=== PATIENT | female | born 1945 | race Caucasian/White ===

== ENCOUNTER 2017-03-31 08:05 | Day surgery (SDC) | payer OTHER, MEDICAID ==
[2017-03-31 08:52] VITALS: PULSE 56
[2017-03-31] MEDS ORDERED: LR 1,000 ML IV ONE (09:18)
[2017-03-31 09:49] LABS: ANION GAP 14 mEq/L (8-16); CALCIUM 9.8 mg/dL (8.5-10.4); CARBON DIOXIDE 21 mEq/l (22-31); CHLORIDE 106 mEq/L (97-110); CREATININE 1.3 mg/dL (0.6-1.0); GLOMERULAR FILTRATION RATE 40; GLUCOSE 219 mg/dL (70-100); POTASSIUM 4.2 mEq/L (3.5-5.2); SODIUM 141 mEq/L (134-144)
--- NOTE | 2017-03-31 10:37 | PDANEPAE ---
ANE Past Medical History - Cardiovascular History Hx Hypertension: Yes Hx Arrhythmias: No Hx Chest Pain: No Hx Coronary Artery / Peripheral Vascular Disease: Yes Hx CHF / Valvular Disease: No Hx Palpitations: No - Pulmonary History Hx COPD: No Hx Asthma/Reactive Airway Disease: No Hx Recent Upper Respiratory Infection: No Hx Oxygen in Use at Home: No Hx Sleep Apnea: No Sleep Apnea Screening Result - Last Documented: Negative - Neurologic History Hx Cerebrovascular Accident: No Hx Seizures: No Hx Dementia: No - Endocrine History Hx Diabetes: Yes Endocrine History Comment: type 2 diabetes - Renal History Hx Renal Disorders: No - Liver History Hx Hepatic Disorders: No - Neurological & Psychiatric Hx Hx Neurological and Psychiatric Disorders: No - Cancer History Hx Cancer: No - Congenital Disorder History Hx Congenital Disorders: No - GI History Hx Gastrointestinal Disorders: Yes Gastrointestinal History Comment: swallowing difficulty - Other Health History Other Health History: none - Chronic Pain History Chronic Pain: No - Surgical History Prior Surgeries: five toes right foot amputated. 2nd toe left foot amputated ANE Review of Systems Review of Systems: - Exercise capacity METS (RN): 4 METS ANE Patient History - Allergies Allergies/Adverse Reactions: atorvastatin [From Lipitor] Allergy (Verified 03/23/17 15:24) desvenlafaxine Allergy (Verified 03/23/17 15:24) diphenhydramine [From Benadryl] Allergy (Verified 03/23/17 15:24) divalproex sodium [From Depakote] Allergy (Verified 03/23/17 15:24) mushroom Allergy (Verified 03/23/17 15:24) venlafaxine [From Effexor] Allergy (Verified 03/23/17 15:24) metaclopramide Allergy (Uncoded 03/23/17 15:24) products containing shellfish Allergy (Uncoded 03/23/17 15:24) - Home Medications Home Medications: Cymbalta 03/23/17 [Last Taken 03/30/17] Diclofenac Sodium 1% 03/23/17 [Last Taken 03/30/17] Fenofibrate 03/23/17 [Last Taken 03/30/17] Humalog Kwikpen U-100 03/23/17 [Last Taken 03/30/17] Lantus Solostar 03/23/17 [Last Taken 03/30/17] Levothyroxine 03/23/17 [Last Taken 03/30/17] Lisinopril 03/23/17 [Last Taken 03/30/17] Loperamide 03/23/17 [Last Taken 03/30/17] Lyrica 03/23/17 [Last Taken 03/30/17] Ondansetron 03/23/17 [Last Taken 03/30/17] Pantoprazole Sodium 03/23/17 [Last Taken 03/30/17] - NPO status NPO Since - Liquids (Date): 03/30/17 NPO Since - Liquids (Time): 00:00 NPO Since - Solids (Date): 03/30/17 NPO Since - Solids (Time): 00:00 - Smoking Hx Smoking Status: Never smoked - Family Anes Hx Family Hx Anesthesia Complications: none ANE Labs/Vital Signs - Labs Result Diagrams: 03/31/17 09:00 - Vital Signs Blood Pressure: 125/71 Heart Rate: 56 Respiratory Rate: 16 O2 Sat (%): 91 Height: 160.02 cm Weight: 79.379 kg ANE Physical Exam - Airway Mallampati Score: Class 2 - ASA Status ASA Status: III ANE Anesthesia Plan Total IV Anesthesia: Yes
[2017-03-31] MEDS ORDERED: PROPOFOL/EMULSION 500 MG/50 ML BOTTLE IV ONE (10:42)
--- NOTE | 2017-03-31 10:42 | PDGENHP ---
History & Physical Chief Complaint: Dysphagia Relevant Physical Exam: GEN: NAD. Cardiac: RRR. Lungs: CTA B. Abd: Soft, nt, nd
--- NOTE | 2017-03-31 11:03 | GIREPORT ---
[facility] Surgical Services - Endoscopy Department Patient Name: Layla Weston Procedure Date: 03/31/2017 10:37 AM Patient Type: Outpatient Attending MD/ ER Physician: Alonso Lara MD Procedure: Upper GI endoscopy Indications: Dysphagia. Hx of esophageal strictures which has been dilated up to 12m m in the recent past (Jan 30). Providers: Alonso Lara MD Medicines: Monitored Anesthesia Care Complications: No immediate complications. Description of Procedure: After obtaining informed consent, the endoscope was passed under direct vision. Throughout the procedure, the patient's blood pressure, pulse, and oxygen saturations were monitored continuously. The Endoscope was intro duced through the mouth, and advanced to the second part of duodenum. The [facility] GI endoscopy was accomplished without difficulty. The patient tolerated th e procedure well. Findings: LA Grade A (one or more mucosal breaks less than 5 mm, not extending be tween tops of 2 mucosal folds) esophagitis with no bleeding was found 36 cm f rom the incisors. One mild benign-appearing, intrinsic stenosis was found 36 cm from the incisors. This measured 1.1 cm (inner diameter) x less than one cm (in length) and was traversed. A TTS dilator was passed through the scope. Dilation with a 12-13.5-15 mm balloon dilator was performed to 13.5 mm. A small hiatal hernia was present. A large amount of food (residue) was found in the entire examined stoma ch. The examined duodenum was normal. Estimated Blood Loss: Estimated blood loss: none. Post Op Diagnosis: - Benign-appearing esophageal stenosis. Dilated. - Small hiatal hernia. - A large amount of food (residue) in the stomach. - Normal examined duodenum. - No specimens collected. Recommendation: - Discharge patient to home (with escort). - Gastroparesis diet. - Continue present medications. - Repeat EGD with dilation as needed for recurrent dysphagia. - Return to GI clinic as previously scheduled. - Thank you for allowing me to participate in the care of your patient. Attending Participation: I personally performed the entire procedure. Alonso Lara MD Alonso Lara MD 03/31/2017 11:03:21 AM This report has been signed electronicallyDabrenda Lara MD Number of Addenda: 0 Note Initiated On: 03/31/2017 10:37 AM [email or web address]
[2017-03-31] MEDS ORDERED: LR 500 ML IV PRN (11:04)
[2017-03-31] MEDS ORDERED: ONDANSETRON 4 MG/2 ML VIAL IVP PRN (11:04)
[2017-03-31] MEDS ORDERED: fentaNYL 100 MCG/2 ML INJ IVP PRN (11:04)
[2017-03-31] MEDS ORDERED: NALOXONE HCL 0.4 MG/ML INJ IVP PRN (11:04)
--- NOTE | 2017-03-31 11:05 | POSTANESTH ---
Post Anesthetic Evaluation Cardiovascular Status: Similar to Pre-Op Cond Respiratory Status: Normal, Stable Level of Consciousness/Mental Status: Can Participate in Eval Pain Control: Adequate, Prn Tx Ordered Nausea/Vomiting Control: Adequate, Prn Tx Ordered Complications Possibly Related to Anesthesia: None Noted
[2017-03-31] MEDS ORDERED: fentaNYL 100 MCG/2 ML INJ ONE (11:08)
[2017-03-31 11:56] VITALS: RESP 16
[2017-03-31 12:57] VITALS: BP 108/85; TEMP 97.5; O2SAT 95
== END 2017-03-31 12:57 | disposition home or self-care (01) ==
LOC: FSGY 08:05
PROVIDERS: ATTEND Internal Medicine Gastroenterology
PROC: 0D728ZZ Dilation of Middle Esophagus, Via Natural or Artificial Opening Endoscopic (ICD-10-PCS; principal; 2017-03-31 10:15)
DX: K22.2 Esophageal obstruction (principal); R13.10 Dysphagia, unspecified; K20.9 Esophagitis, unspecified; K44.9 Diaphragmatic hernia without obstruction or gangrene
CPT/HCPCS: 43245; C1726; J2704; J3010

== ENCOUNTER 2017-04-22 16:39 | Inpatient (IN) | payer OTHER, MEDICAID ==
[2017-04-22] MEDS ORDERED: NS 500 ML IV ONE (16:48)
[2017-04-22] MEDS ORDERED: ASPIRIN 81 MG CHEWABLE TAB PO ONE (16:48)
--- NOTE | 2017-04-22 16:48 | CPEKG ---
Heart Rate: 129 RR Interval: 465 QRSD Interval: 126 QT Interval: 344 QTC Interval: 504 QRS [place]: -46 T Wave [place]: 70 EKG Severity - ABNORMAL ECG - EKG Impression: Third-degree heart block Electronically Signed By: Nacho Holbrook 22-Apr-2017 16:59:32
--- NOTE | 2017-04-22 16:48 | EDPHY ---
H & P HPI/ROS: CHIEF COMPLAINT: Weakness, bradycardia HISTORY OF PRESENT ILLNESS: Patient is a 71-year-old female from [facility] who is been feeling weak for about the last 7 or 8 days. [facility] which was read today as bradycardia. She was sent here to the emergency department by EMS. She was found by EMS to be slightly hypoxic at 88% and in third-degree heart block. She denies headache nausea vomiting. She does feel slightly lightheaded if she tries to stand up and move around. She has no focal weakness or deficits. No recent fevers or infections. No trauma. She denies any significant cardiac or pulmonary history. REVIEW OF SYSTEMS: Constitutional: Weak EENTM: denies: blurred vision, double vision, nose congestion Respiratory: denies: cough, shortness of breath Cardiac: denies: chest pain, irregular heart rate, lightheadedness, palpitations Gastrointestinal/Abdominal: denies: abdominal pain, diarrhea, nausea, vomiting, blood streaked stools Genitourinary: denies: dysuria, frequency, hematuria, pain Musculoskeletal: denies: joint pain, muscle pain Skin: denies: lesions, rash, jaundice, bruising Neurological: denies: headache, numbness, paresthesia, tingling, dizziness, weakness Hematologic/Lymphatic: denies: blood clots, easy bleeding, easy bruising Immunologic/allergic: denies: HIV/AIDS, transplant EXAM: GENERAL: Well-appearing, obese in no acute distress. HEAD: Atraumatic, normocephalic. EYES: Pupils equal round and reactive to light, extraocular movements intact, sclera anicteric, conjunctiva are normal. ENT: TMs normal, nares patent, oropharynx clear without exudates. Moist mucous membranes. NECK: Normal range of motion, supple without lymphadenopathy or JVD. LUNGS: Breath sounds clear to auscultation bilaterally and equal. No wheezes rales or rhonchi. HEART: Bradycardic ABDOMEN: Soft, nontender, normoactive bowel sounds. No guarding, no rebound. No masses appreciated. BACK: No CVA tenderness, no spinal tenderness, step-offs or deformities EXTREMITIES: Normal range of motion, no pitting or edema. No clubbing or cyanosis. NEUROLOGICAL: Cranial nerves II through XII grossly intact. Normal speech, normal gait. 5/5 strength, normal movement in all extremities, normal sensation PSYCH: Normal mood, normal affect. SKIN: Warm, dry, normal turgor, no visible rashes or lesions. Source: Patient, EMS Exam Limitations: No limitations - Medical/Surgical History Hx Asthma: No Hx Chronic Respiratory Disease: No Hx Diabetes: Yes Hx Cardiac Disease: No Hx Renal Disease: No Hx Cirrhosis: No Other PMH: Hypertension, high cholesterol - Social History Smoking Status: Never smoked Alcohol Use: Sober Drug Use: None Constitutional: Initial Vital Signs Temperature (C) 36.5 C 04/22/17 16:48 Heart Rate 38 L 04/22/17 16:48 Respiratory Rate 18 04/22/17 16:48 Blood Pressure 128/55 H 04/22/17 16:48 O2 Sat (%) 90 L 04/22/17 16:48 O2 Delivery Mode Nasal Cannula O2 (L/minute) 95 Allergies/Adverse Reactions: atorvastatin [From Lipitor] Allergy (Verified 03/23/17 15:24) desvenlafaxine Allergy (Verified 03/23/17 15:24) diphenhydramine [From Benadryl] Allergy (Verified 03/23/17 15:24) divalproex sodium [From Depakote] Allergy (Verified 03/23/17 15:24) mushroom Allergy (Verified 03/23/17 15:24) venlafaxine [From Effexor] Allergy (Verified 03/23/17 15:24) metaclopramide Allergy (Uncoded 03/23/17 15:24) products containing shellfish Allergy (Uncoded 03/23/17 15:24) Home Medications: Medication Instructions Recorded DULoxetine [Cymbalta 60 MG (*)] 60 mg PO DAILY 03/23/17 Diclofenac Sodium 1% [Voltaren Gel 1 marla TP Q4 PRN 03/23/17 (*)] Insulin Glargine,Hum.rec.anlog 27 unit SQ DAILY 03/23/17 [Lantus Solostar] Levothyroxine [Synthroid 50 mcg 50 mcg PO DAILY06 03/23/17 (*)] Lisinopril [Zestril 20 mg (*)] 20 mg PO DAILY 03/23/17 Loperamide HCl [Imodium 2 mg (*)] 2 mg PO PRN 03/23/17 Ondansetron HCl [Zofran] 4 mg PO Q6 PRN 03/23/17 Pantoprazole Sodium [Protonix 40mg 40 mg PO HS 03/23/17 (*)] Pregabalin [Lyrica 50mg (*)] 50 mg PO BID 03/23/17 Acetaminophen [Tylenol 325mg (*)] 650 mg PO Q6 04/22/17 Dulaglutide [Trulicity] 1.5 mg SQ [place] 04/22/17 Empagliflozin [Jardiance] 25 mg PO DAILY 04/22/17 Herbals/Supplements -Info Only 1 ea PO DAILY 04/22/17 Insulin Glargine,Hum.rec.anlog 17 unit SQ HS 04/22/17 [Lantus Solostar] Rosuvastatin Calcium [Crestor 40mg 40 mg PO DAILY 04/22/17 (*)] Sennosides [Senna Lax] 8.6 mg PO BID PRN 04/22/17 Medical Decision Making - Diagnostics EKG Interpretation: An EKG obtained and was read and documented in trace view. Please see trace view for full reading and report. Third-degree heart block ED Course/Re-evaluation: We were 4:50 p.m. the patient was moved to the trauma room and transcutaneous pacemaker in place. She remained stable with a blood pressure of 130/50. She is saturating 88% on room air. I spoke with Dr. Alfonso from Cardiology who will consult. 4:[address] Nelson is here to evaluate. 5:15 p.m. the patient has been evaluated by Dr. Nelson. He will admit to the ICU and plan to place a pacemaker tomorrow. Differential Diagnosis: Partial list of the Differential diagnosis considered include but were not limited to; hypothyroid, heart block, arrhythmia, acute coronary disease and although unlikely based on the history and physical exam, I also considered infection, electrolyte abnormality. Critical Care Time: Critical care time spent by me, Dr. Holbrook exclusive with this patient was 35 minutes, exclusive of the PA time exclusive of procedures. The organ system that was at risk was cardiovascular and I gave the IV, pacemaker placement, consultation and admission to prevent worsening of the patient's condition - Data Points Laboratory Results: Laboratory Results 04/22/17 16:40 04/22/17 16:40 Medications Given: Acetaminophen (Tylenol) 650 mg PO Q6 [facility] Stop: 10/20/17 17:59 Last Admin: 04/23/17 17:41 Dose: 650 mg Levothyroxine Sodium (Synthroid) 50 mcg PO DAILY06 [facility] Stop: 10/20/17 12:14 Last Admin: 04/23/17 14:05 Dose: 50 mcg Lisinopril (Zestril) 20 mg PO DAILY [facility] Stop: 10/20/17 12:14 Last Admin: 04/23/17 14:05 Dose: 20 mg Discontinued Medications Aspirin (Aspirin) 324 mg PO EDNOW ONE Stop: 04/22/17 16:49 Last Admin: 04/22/17 16:57 Dose: 324 mg Bacitracin (Bacitracin 1000 Ml Irrigation) 50,000 units IRR ONCALL ONE Stop: 04/23/17 06:01 Last Admin: 04/23/17 13:05 Dose: Not Given Sodium Chloride (Ns) 500 mls @ 0 mls/hr IV EDNOW ONE; Wide Open PRN Reason: Protocol Stop: 04/22/17 16:49 Last Admin: 04/22/17 16:57 Dose: 500 mls Cefazolin Sodium (Cefazolin Syringe) 2 gm in 20 mls @ 200 mls/hr IVP ONCALL ONE PRN Reason: Protocol Stop: 04/23/17 06:05 Last Admin: 04/23/17 13:05 Dose: Not Given Sodium Chloride (Ns) 1,000 mls @ 0 mls/hr IV ONCALL ONE PRN Reason: TKO Stop: 04/23/17 06:01 Last Admin: 04/23/17 08:27 Dose: 1,000 mls Famotidine/Sodium Chloride (Pepcid 20 Mg (Premix)) 50 mls @ 200 mls/hr IV ONCALL ONE Stop: 04/23/17 08:14 Last Admin: 04/23/17 08:27 Dose: 50 mls Insulin Glargine (Lantus Syringe) 13 units SC ONCE ONE Stop: 04/23/17 14:16 Last Admin: 04/23/17 14:52 Dose: 13 units Methylprednisolone Sodium Succinate (Solu-Medrol) 125 mg IVP ONCALL ONE Stop: 04/23/17 08:01 Last Admin: 04/23/17 08:26 Dose: 125 mg Departure - Departure Disposition: [facility] Inpatient Acute Clinical Impression: Third degree heart block Condition: Critical
[2017-04-22 16:54] LABS: % IMMATURE GRANULYOCYTES 0.5 % (0.0-1.1); ABSOLUTE IMMATURE GRANULOCYTES 0.04 10^3/uL (0.00-0.10); ADD DIFF? NO; ADD MORPH? NO; ADD SCAN? NO; ATYPICAL LYMPHOCYTE FLAG 10 (0-99); FRAGMENT RBC FLAG 0 (0-99); HEMOGLOBIN 12.4 g/dL (12.6-16.3); LEFT SHIFT FLG 0 (0-99); LIPEMIA HEMOLYSIS FLAG 80 (0-99); MEAN CELL HEMOGLOBIN 30.2 pg (27.9-34.1); MEAN CELL HEMOGLOBIN CONCENTR. 33.5 g/dL (32.4-36.7); MEAN PLATELET VOLUME 11.3 fL (8.7-11.7); PLATELET CLUMPS FLAG 0 (0-99); PLATELET COUNT 209 10^3/uL (150-400); RED BLOOD CELL COUNT 4.11 10^6/uL (4.18-5.33); RED CELL DISTRIBUTION WIDTH 13.9 % (11.5-15.2)
[2017-04-22 17:06] LABS: APTT 32.5 SEC (23.0-38.0); INR 1.06 (0.83-1.16); PROTIME(PATIENT) 13.7 SEC (12.0-15.0)
[2017-04-22 17:14] LABS: ANION GAP 12 mEq/L (8-16); CALCIUM 9.2 mg/dL (8.5-10.4); CARBON DIOXIDE 19 mEq/l (22-31); CHLORIDE 109 mEq/L (97-110); CREATININE 1.9 mg/dL (0.6-1.0); GLOMERULAR FILTRATION RATE 26; GLUCOSE 151 mg/dL (70-100); POTASSIUM 4.8 mEq/L (3.5-5.2); SODIUM 140 mEq/L (134-144)
[2017-04-22] MEDS ORDERED: ACETAMINOPHEN 325 MG TAB PO PRN (17:20)
[2017-04-22] MEDS ORDERED: ONDANSETRON 4 MG/2 ML VIAL IVP PRN (17:20)
[2017-04-22] MEDS ORDERED: ONDANSETRON DISINTEGRATING 4 MG TAB PO PRN (17:20)
[2017-04-22 17:27] LABS: TROPONIN I < 0.012 ng/mL (0.000-0.034)
[2017-04-22] MEDS ORDERED: ATROPINE SULFATE 1 MG/10 ML SYR IVP PRN (17:32)
[2017-04-22] MEDS ORDERED: ATROPINE SULFATE 1 MG/10 ML SYR ONE (17:36)
--- NOTE | 2017-04-22 17:38 | PDCONSULT ---
Data Coordinator Note: CC: fatigue Consult request: ER physicians HPI: Patient is a 71 y/o female with history of HTN, HLP, DM, and hypothyroidism,who presents to [facility] ER via EMS after bradycardia with symptoms was noted at detention. Patient states that for the past several weeks, she has been feeling rather lethargic and tired. No chest pains or pressure. No PND or orthopnea. Mild dizziness has also been noted over the same time frame. ECG in the ER today with third degree AVB noted (heart rates of 35-40 bpm with ventricular escape). Intermittent capture was noted (based on QRS morphology). Besides the fatigue, the patient states that she has been trying to lose weight. Appetite has not been great for the same time frame (about 1-2 weeks). No appreciable weight loss has been noted. Remainder of the 12 point review of systems was unremarkable PMHx: HTN HLP DM hypothyroidism no history of CAD PSHx: non contributory FHx: non contributory SHx: no tobacco, illicit, or alcohol abuse Allergies to statins (see complete list) Medications Lisinopril, insulin, levothyroxine, and cymbalta Vitals: as below PE: GEN: awake and alert, some lethargy, normal responses to all questions SKIN: no rashes no edema HEENT: NCAT PERRLA Neck: No JVD LUNGS: CTA bilaterally without crackles, wheeze or rales COR: Bradycardia (rates of 35 bpm) without m/r/g ABD: soft, mild obesity EXT: 2+ DP/PT/RAD pulses Neuro: no focal deficits noted Laboratory Tests 04/22/17 04/22/17 04/22/17 16:40 16:40 16:40 WBC 8.76 Hgb 12.4 L Hct 37.0 L Plt Count 209 INR 1.06 Sodium 140 Potassium 4.8 Chloride 109 Carbon Dioxide 19 L BUN 47 H Creatinine 1.9 H Glucose 151 H Calcium 9.2 Troponin I < 0.012 Free T4 1.55 ECG with third degree AVB noted Tele with third degree AVB Assessment: Patient is a 71 y/o female with HTN, HLP, DM, and hypothyroidism, who presents to [facility] ER via EMS with third degree AVB. Symptoms have been noted for the last several weeks. Fatigue and dizziness are chief complaints. ECG and telemetry with third degree AVB noted. Discussion about PPM implant in the morning ( patient is stable with appropriate mental state and normal blood pressures). Plans: PPM implant in the morning.
[2017-04-23 05:29] LABS: % IMMATURE GRANULYOCYTES 0.3 % (0.0-1.1); ABSOLUTE IMMATURE GRANULOCYTES 0.03 10^3/uL (0.00-0.10); ADD DIFF? NO; ADD MORPH? NO; ADD SCAN? NO; ATYPICAL LYMPHOCYTE FLAG 0 (0-99); FRAGMENT RBC FLAG 0 (0-99); HEMATOCRIT 34.2 % (38.0-47.0); LEFT SHIFT FLG 0 (0-99); LIPEMIA HEMOLYSIS FLAG 80 (0-99); MEAN CELL HEMOGLOBIN 29.2 pg (27.9-34.1); MEAN CELL HEMOGLOBIN CONCENTR. 32.2 g/dL (32.4-36.7); MEAN CELL VOLUME 90.7 fL (81.5-99.8); PLATELET CLUMPS FLAG 0 (0-99); PLATELET COUNT 175 10^3/uL (150-400); RED BLOOD CELL COUNT 3.77 10^6/uL (4.18-5.33)
[2017-04-23 05:35] LABS: INR 1.15 (0.83-1.16); PROTIME(PATIENT) 14.6 SEC (12.0-15.0)
[2017-04-23 05:36] LABS: APTT 33.3 SEC (23.0-38.0)
[2017-04-23] MEDS ORDERED: ceFAZolin 2 GM/SWFI 2 GM/20 ML SYR IVP ONE (06:00)
[2017-04-23] MEDS ORDERED: BACITRACIN IRRIGATION/NS 50,000 UNITS/1,000 ML BTL IRR ONE (06:00)
[2017-04-23] MEDS ORDERED: NS 1,000 ML IV ONE (06:00)
[2017-04-23 06:05] LABS: ALANINE AMINOTRANSFERASE 23 IU/L (9-52); ALBUMIN 2.9 g/dL (3.5-5.0); ALKALINE PHOSPHATASE 58 IU/L (38-126); ANION GAP 10 mEq/L (8-16); ASPARTATE AMINOTRANSFERASE 16 IU/L (14-46); BILIRUBIN,TOTAL 0.4 mg/dL (0.1-1.4); CALCIUM 8.5 mg/dL (8.5-10.4); CARBON DIOXIDE 21 mEq/l (22-31); CHLORIDE 110 mEq/L (97-110); CREATININE 1.5 mg/dL (0.6-1.0); GLOMERULAR FILTRATION RATE 34; GLUCOSE 112 mg/dL (70-100); POTASSIUM 4.3 mEq/L (3.5-5.2); SODIUM 141 mEq/L (134-144); TOTAL PROTEIN 5.3 g/dL (6.3-8.2)
[2017-04-23 06:13] LABS: TROPONIN I < 0.012 ng/mL (0.000-0.034)
[2017-04-23] MEDS ORDERED: FAMOTIDINE 20 MG in NS 100 ML IV ONE (08:00)
[2017-04-23] MEDS ORDERED: FAMOTIDINE 20 MG/NACL 50 ML IV ONE (08:00)
[2017-04-23] MEDS ORDERED: methylPREDNISolone SOD SUCC 125 MG/2 ML VIAL IVP ONE (08:00)
[2017-04-23] MEDS ORDERED: MIDAZOLAM 2 MG/2 ML VIAL ONE (08:13)
[2017-04-23] MEDS ORDERED: fentaNYL 100 MCG/2 ML INJ ONE ×2 (08:13→10:10)
[2017-04-23] MEDS ORDERED: LIDOCAINE 1% 300 MG/30 ML SDV ONE (08:13)
[2017-04-23] MEDS ORDERED: LIDO/EPI 1% **for epidural** 30 ML SDV ONE (08:13)
[2017-04-23] MEDS ORDERED: BUPIVACAINE 0.5% 30 ML SDV ONE (08:14)
[2017-04-23] MEDS ORDERED: IOPAMIDOL (ISOVUE-300) 100 ML BTL ONE (08:22)
--- NOTE | 2017-04-23 08:28 | PDCARPN ---
Cardiology Progress Note Chief Complaint: No cardiovascular "events" overnight, but the patient did remain in third degree AV block. Assessment/Plan: Assessment: Patient is a 71 y/o female with history of HTN, HLP, and DM, who presented to the ER via EMS after several weeks of fatigue and lethargy. ECG/telemetry with third degree AVB. Mental acuity and blood pressures were preserved with aforementioned rhythm. Patient awake and alert this morning without event reported by staff or patient overnight. Plans for PPM implant this morning. Plan: (1) PPM implant (2) Maintain current outpatient medical therapies for HTN, HLP, and DM (3) Further recommendations to follow after procedure completed. Subjective: No complaints Reviewed/Discussed With: multidisciplinary team Objective: Vital Signs (8 Hrs) Temp Pulse Resp BP Pulse Ox 04/23/17 06:00 35 L 16 114/42 L 95 04/23/17 05:00 35 L 14 128/43 H 92 04/23/17 04:00 36.8 C 36 L 18 120/46 L 94 04/23/17 03:00 37 L 16 114/69 94 04/23/17 02:00 36 L 18 117/48 L 94 04/23/17 01:00 36 L 13 118/41 L 95 Intake/Output (24 Hrs) 04/22/17 04/23/17 04/24/17 05:59 05:59 05:59 Intake Total 740 Balance 740 Intake: Oral (ml) 240 IV Infused (ml) 500 Other: Weight 81.9 kg Number of Voids Incontinence 1 1 Result Diagrams: 04/23/17 05:00 04/23/17 05:00 Cardiac Labs: Cardiac Lab Results (72 Hrs) 04/23/17 04/22/17 05:00 23:20 Troponin I < 0.012 < 0.012 Telemetry: third degree AVB with ventricular escape rate of 35-40 bpm Echocardiogram: Limited: normal LVEF noted with normal wall motion - Physical Exam Constitutional: WDWN, healthy appearing, no apparent distress Eyes: PERRL Ears, Nose, Mouth, Throat: moist mucous membranes Cardiovascular: no murmurs, other (bradycardic) Peripheral Pulses: 2+: dorsalis-pedis (R), dorsalis-pedis (L) Respiratory: clear to auscultate bilat, no crackles, no wheezes Gastrointestinal: normoactive bowel sounds Skin: no rashes, no edema Musculoskeletal: no muscular tenderness Neurologic: AAOx3, CN II-XII grossly intact Psychiatric: cooperative, interactive, following commands ICD10 Worksheet Patient Problems: Problems Problem Status Onset Third degree heart block Acute
--- NOTE | 2017-04-23 10:43 | SUROPNOTE ---
MICHELLE Operative Report - Surgery PROCEDURE: Venogram for isolation of the subclavian vein PPM implantation for Third degree AVB INDICATION: Third degree AVB Procedure details: After consents were signed, patient was brought to the cardiac concrete mixing plant laborer and placed on the table in the usual sterile fashion. Fluorscopic review of the subclavian location and patency was performed. Two separate sticks were performed without complication. A pocket was then created with #10 blade. Cautery was used to curtail bleeding, and blunt dissection was used to create proper depth and width. The wires were pulled into the pocket. Bacitracin soaked visitech was placed into the pocket, and the ventricular lead was placed first. Ventricular lead data: SN: [id number] (Biotronik Solia S 53) R waves of 6.1 mV 0.6 V @ 0.4 ms and imp to 588 ohms Lead was sutured into position Atrial lead data: SN: [id number] (Biotronik Solia S 45) P waves of 2.7 mV 0.7 V @ 0.4 ms and imp to 488 ohms Lead was sutured into position Visitech was explanted and the pocket was inspected for haemostasis. Device was implanted and leads were attached. SN: [id number] Device was sutured into position and the pocket was closed with 4-0, 3-0, and 2- 0 No complications were appreciated Fluoroscopic review of the pocket was performed. CXR is pending AM interrogation and PA/LAT are ordered
--- NOTE | 2017-04-23 11:02 | ECHO ---
[email or web address] [place] [id number] Main: [phone] Fax: Transthoracic Echocardiogram Name: CAROLINE GIBSON MR#: [id number] Study Date: 04/23/2017 Study Time: 08:15 AM Date of : 1945 Age: 71 year(s) Height: ( ) Weight: ( ) BSA: Gender: Female Examination: Limited Echo Indication: Eval EF pre pacemaker Image Quality: Contrast: Requested by: Mk Nelson BP: / Heart Rate: Rhythm: Indication: Eval EF pre pacemaker Procedure Staff Yard Supervisor Cotton Gin: Mony De La Cruz Physician: John Hazel Requesting Provider: Conclusions: Normal size left ventricle. The ejection fraction is estimated to be 60-65 %. No regional wall motion abnormality. Normal appearing valvular structures. Measurements: Chambers Valvular Assessment AV/MV Valvular Assessment TV/PV Normal Normal Normal Name Value Range Name Value Range Name Value Range EF Range: 60-65 % Continued Measurements: Findings: Left Ventricle: Normal size left ventricle. The ejection fraction is estimated to be 60-65 %. No regional wall motion abnormality. Right Ventricle: Normal size right ventricle. Normal RV function. Left Atrium: The left atrium is normal in size. Right Atrium: The right atrium is normal in size. Mitral Valve: The mitral valve is normal in appearance. Aortic Valve: The aortic valve is normal in appearance. Tricuspid Valve: Patient: CAROLINE GIBSON Study Date: 04/23/2017 Page 1 of 2 08:15 AM The tricuspid valve appears normal. Pericardium: No pericardial effusion. There is pericardial fat. (No Signature Object) Patient: CAROLINE GIBSON Study Date: 04/23/2017 Page 2 of 2 08:15 AM [id number]
[2017-04-23] MEDS ORDERED: SENNOSIDES 1 TAB PO PRN (12:14)
[2017-04-23] MEDS ORDERED: NON-FORMULARY NEW DRUG (Ondansetron Hcl [Zofran] 4 MG) PO PRN (12:14)
[2017-04-23] MEDS ORDERED: DICLOFENAC SODIUM 1% 100 GM GEL TP PRN (12:14)
[2017-04-23] MEDS ORDERED: LOPERAMIDE HCL 2 MG CAP PO SCH (12:15)
[2017-04-23] MEDS ORDERED: INSULIN GLARGINE HUM REC ANLOG 27 UNIT SQ SCH (12:15)
[2017-04-23] MEDS ORDERED: LOPERAMIDE HCL 2 MG CAP PO PRN (13:03)
[2017-04-23] MEDS ORDERED: ONDANSETRON 4 MG/2 ML VIAL IVP PRN (13:05)
[2017-04-23] MEDS: LISINOPRIL 20 MG TAB PO SCH (14:05)
[2017-04-23] MEDS: LEVOTHYROXINE 50 MCG TAB PO SCH (14:05)
[2017-04-23] MEDS ORDERED: INSULIN GLARGINE 100 UNITS/ML SYRINGE SC ONE (14:15)
--- NOTE | 2017-04-23 16:13 | ASMTCMCOM ---
CM Note CM Note Notes: Pt. is a 71-year-old woman admitted for weakness, bradycardia, and a heart block. Pt. had a pacemaker placed. Pt. lives at [facility]. Await PT recommendations to help guide d/c plan. CM to follow for d/c POC. Date Signed: 04/23/2017 04:13 PM Electronically Signed By:July Winters LCSW
[2017-04-23] MEDS: ACETAMINOPHEN 325 MG TAB PO SCH (17:41)
[2017-04-23] MEDS: PREGABALIN 50 MG CAP PO SCH (19:21)
[2017-04-23] MEDS ORDERED: INSULIN GLARGINE 100 UNITS/ML SYRINGE SC SCH (21:00)
[2017-04-23] MEDS ORDERED: INSULIN GLARGINE HUM REC ANLOG 17 UNIT SQ SCH (21:00)
[2017-04-23] MEDS ORDERED: PANTOPRAZOLE SODIUM 40 MG TAB PO SCH (21:00)
[2017-04-24] MEDS: ACETAMINOPHEN 325 MG TAB PO SCH ×2 (02:46→06:12)
[2017-04-24 04:48] LABS: % IMMATURE GRANULYOCYTES 0.4 % (0.0-1.1); ABSOLUTE IMMATURE GRANULOCYTES 0.03 10^3/uL (0.00-0.10); ADD DIFF? NO; ADD MORPH? NO; ADD SCAN? NO; ATYPICAL LYMPHOCYTE FLAG 0 (0-99); FRAGMENT RBC FLAG 0 (0-99); HEMATOCRIT 34.5 % (38.0-47.0); HEMOGLOBIN 11.2 g/dL (12.6-16.3); LEFT SHIFT FLG 0 (0-99); LIPEMIA HEMOLYSIS FLAG 80 (0-99); MEAN CELL HEMOGLOBIN 29.5 pg (27.9-34.1); MEAN CELL HEMOGLOBIN CONCENTR. 32.5 g/dL (32.4-36.7); MEAN CELL VOLUME 90.8 fL (81.5-99.8); MEAN PLATELET VOLUME 10.7 fL (8.7-11.7); PLATELET CLUMPS FLAG 10 (0-99); PLATELET COUNT 191 10^3/uL (150-400); RED CELL DISTRIBUTION WIDTH 13.6 % (11.5-15.2)
[2017-04-24 05:00] LABS: ANION GAP 10 mEq/L (8-16); CALCIUM 8.7 mg/dL (8.5-10.4); CARBON DIOXIDE 21 mEq/l (22-31); CHLORIDE 108 mEq/L (97-110); CREATININE 1.3 mg/dL (0.6-1.0); GLOMERULAR FILTRATION RATE 40; GLUCOSE 284 mg/dL (70-100); POTASSIUM 4.8 mEq/L (3.5-5.2); SODIUM 139 mEq/L (134-144)
[2017-04-24] MEDS: LEVOTHYROXINE 50 MCG TAB PO SCH (06:16)
[2017-04-24 07:00] VITALS: PULSE 88; RESP 12; TEMP 98
[2017-04-24] MEDS: LISINOPRIL 20 MG TAB PO SCH (08:28)
[2017-04-24] MEDS: PREGABALIN 50 MG CAP PO SCH (08:28)
[2017-04-24] MEDS ORDERED: DULoxetine 60 MG CAP PO SCH (09:00)
[2017-04-24] MEDS ORDERED: NON-FORMULARY NEW DRUG (Empagliflozin [Jardiance] 25 MG) PO SCH (09:00)
[2017-04-24] MEDS ORDERED: ROSUVASTATIN CALCIUM 40 MG TAB PO SCH (09:00)
[2017-04-24] MEDS ORDERED: INSULIN GLARGINE 100 UNITS/ML SYRINGE SC SCH (09:00)
[2017-04-24] MEDS ORDERED: Empagliflozin [Jardiance] 25 MG PO SCH (09:00)
--- NOTE | 2017-04-24 09:07 | PDCARPN ---
Cardiology Progress Note Chief Complaint: No events overnight. Patient doing well today, POD#1 for PPM implant Assessment/Plan: Assessment: 04-24-17 No cardiovascular events overnight. Patient with mild (expected) tenderness to the PPM implant site. Good sleep. Much more energy in comparison to admission condition. 04-23-17 Patient is a 71 y/o female with history of HTN, HLP, and DM, who presented to the ER via EMS after several weeks of fatigue and lethargy. ECG/telemetry with third degree AVB. Mental acuity and blood pressures were preserved with aforementioned rhythm. Patient awake and alert this morning without event reported by staff or patient overnight. Plans for PPM implant this morning. Plan: (1) No changes to outpatient medical therapy (2) Discharge to home today (3) Outpatient follow up with [facility] in one week Subjective: No complaints Reviewed/Discussed With: multidisciplinary team Objective: Vital Signs (8 Hrs) Temp Pulse Resp BP Pulse Ox 04/24/17 06:56 36.7 C 88 12 132/95 H 94 04/24/17 03:16 36.8 C 96 18 138/77 H 91 L Intake/Output (24 Hrs) 04/23/17 04/24/17 04/25/17 05:59 05:59 05:59 Intake Total 740 1474 Output Total 45 Balance 740 1429 Intake: Oral (ml) 240 1424 IV Infused (ml) 500 50 Famotidine 20 mg/NaCl 50 50 ml @ 200 mls/hr IV ONCALL ONE Rx#:[id number] Output: Urine (ml) 45 Toilet 45 Other: Weight 81.9 kg Intake Quantity Yes Sufficient Output Comment Incontinence inc. soaked linen, gown, .... Number of Voids Incontinence 1 1 Toilet 3 Number of Stools Toilet 1 Result Diagrams: 04/24/17 04:05 04/24/17 04:05 Cardiac Labs: Cardiac Lab Results (72 Hrs) 04/23/17 04/22/17 05:00 23:20 Troponin I < 0.012 < 0.012 Telemetry: ventricular paced rhythm - Physical Exam Constitutional: WDWN, healthy appearing, no apparent distress Eyes: PERRL, EOMI Ears, Nose, Mouth, Throat: moist mucous membranes Cardiovascular: regular rate and rhythm, no murmurs, No jugular vein distention Peripheral Pulses: 2+: dorsalis-pedis (R), dorsalis-pedis (L) Respiratory: clear to auscultate bilat Gastrointestinal: normoactive bowel sounds Skin: no rashes, no edema Musculoskeletal: no muscular tenderness Neurologic: AAOx3, CN II-XII grossly intact Psychiatric: cooperative, interactive ICD10 Worksheet Patient Problems: Problems Problem Status Onset Third degree heart block Acute
--- NOTE | 2017-04-24 09:14 | PDDCSUM ---
Discharge Summary Discharge Summary: ADMISSION: Complete heart block DISCHARGE: PPM implant HOSPITAL COURSE: Patient was admitted Thursday night thought the ER with complaints of fatigue and weakness noted over the past several weeks. ECG and telemetry with third degree AVB and heart rates of 30-35 bpm. Blood pressure was maintained, and the patient was placed in the ICU overnight (admission was 1700) for monitoring with intent to place PPM in the morning. Uneventful dual chamber pacer was placed yesterday morning. All outpatient medications were continued without issues (there was moderate elevation in glucose noted last night, but the patient attributed this to late feeding and "more than normal" given Thanksgiving meal). Overnight, no issues were noted. Pacer interrogation this morning with excellent parameters noted. Chest x-ray without pneumothorax ( small bilateral pleural effusions were noted). Plans for patient to be discharge back to [facility] today. MEDICATIONS: No changes to medical therapy were implemented Continue Zestril for HTN, Crestor for HLP, and insulin for DM. No changes to outpatient medications are planned Would arrange for patient to be seen in one week by [facility] Patient can be discharged back to [facility] today
[2017-04-24 10:17] VITALS: BP 100/57
[2017-04-24 10:48] VITALS: O2SAT 94
--- NOTE | 2017-04-24 12:31 | ASDISCHSUM ---
Discharge Information Plan Status:Has needs-TBD Medically Cleared to Leave:04/23/2017 Discharge Date:04/24/2017 11:31 AM CM D/C Disposition: ADT D/C Disposition:Home, Routine, Self-Care Projected Discharge Date:04/24/2017 11:00 AM Transportation at D/C: Discharge Delay Reason: Follow-Up Date:04/24/2017 11:00 AM Discharge Slot: Final Diagnosis: Placement Information Referral Type:Assisted Living Residence Referral ID:[id number] Provider Name:Jluis Nails vita Address 1:[address] [facility] Phone Number: Address 2:[place] Fax Number: [facility]:[place] Selection Factors: State:[place] Referral Type:*Home Health Care Services Referral ID:[id number] Provider Name:[facility] Address 1:[address] [facility] Phone Number: Address 2: Fax Number: [facility]:[place] Selection Factors: State:[place] Patient Contact Information Contact Name:BIJU Relationship:Friend Address: Work Phone: City: [facility] Phone: State/Zip Code: Email: Financial Information Financial Class: Primary Plan Desc:MEDICARE INPATIENT Primary Plan Number:[id number] Secondary Plan Desc:MEDICA[place] Secondary Plan Number:[id number] Assessment Information [facility] Progress Note CM Note CM Note Notes: Pt. is a 71-year-old woman admitted for weakness, bradycardia, and a heart block. Pt. had a pacemaker placed. Pt. lives at [facility]. Await PT recommendations to help guide d/c plan. CM to follow for d/c POC. Date Signed: 04/23/2017 04:13 PM Electronically Signed By:July Winters LCSW LACE LACE Length of stay for Answers: 3 days current admission Acuity / Level of Care Answers: Was the patient admitted to hospital via the emergency department? Yes: Comorbidities - select Answers: Cerebrovascular disease all that apply Emergency dept visits in Answers: 0 last 6 months Score: 7 Date Signed: 04/24/2017 10:15 AM Electronically Signed By:Cris Erickson RN Case Management Discharge Plan Note Case Management Discharge Discharge Order Complete? Answers: Yes Patient to Obtain Answers: Independently Medications Transportation Arranged Answers: Taxi - Voucher Faxed Final Orders Answers: Yes Agency/Facility Transfer Answers: Yes Report Printed & Faxed to Receiving Agency Family Notified Answers: No Notes: per pt no need to notif y Discharge Comments Notes: Case management arranged cab using voucher. Notified Jluis RENAE of return of pt and need to resume PT services with [facility]. Faxed final orders. RN to call report. IM signed. Date Signed: 04/24/2017 10:18 AM Electronically Signed By:Cris Erickson RN Intervention Information Intervention Type:*IM-Signed Date of Service:04/24/2017 10:05 AM Patient Type:Inpatient Staff Member:RODNEY Erickson Hillary Hours: Discipline: Severity: Comment: Intervention Type:Cab Vouchers Date of Service:04/24/2017 10:05 AM Patient Type:Inpatient Staff Member:RODNEY Erickson Hillary Hours:0.25 Discipline: Severity: Comment:
[2017-04-26] MEDS ORDERED: NON-FORMULARY NEW DRUG (Dulaglutide [Trulicity] 1.5 MG) SQ SCH (12:14)
[2017-04-26] MEDS ORDERED: Dulaglutide [Trulicity] 1.5 MG SQ SCH (13:04)
== END 2017-04-24 11:31 | disposition home or self-care (01) | DRG 244 ==
LOC: EDUNIT# → F2N 18:48 → F2W 04-23 11:05
PROVIDERS: ADMIT Internal Medicine Cardiovascular Disease; ATTEND Internal Medicine Cardiovascular Disease
PROC: 02H63JZ Insertion of Pacemaker Lead into Right Atrium, Percutaneous Approach (ICD-10-PCS; principal; 2017-04-23)
PROC: 0JH636Z Insertion of Pacemaker, Dual Chamber into Chest Subcutaneous Tissue and Fascia, Percutaneous Approach (ICD-10-PCS; principal; 2017-04-23)
PROC: 02HK3JZ Insertion of Pacemaker Lead into Right Ventricle, Percutaneous Approach (ICD-10-PCS; principal; 2017-04-23)
DX: I44.2 Atrioventricular block, complete (principal); E11.9 Type 2 diabetes mellitus without complications; E03.9 Hypothyroidism, unspecified; I10 Essential (primary) hypertension
CPT/HCPCS: 97161-GP; C1785; C1898; G8978-GP-CH; G8979-GP-CH; G8980-GP-CH; J0461; J0690; J1815; J2250; J2930; J3010; Q9967

== ENCOUNTER → 2017-09-17 | Outpatient (CLI) | payer OTHER, MEDICAID ==
[~2017-09-17] MED LIST: IOPAMIDOL (ISOVUE-300) 100 ML BTL ONE
== END ==
LOC: FIMAGING 12:51
PROVIDERS: ATTEND Physician Assistant Medical
DX: N28.1 Cyst of kidney, acquired (principal); K83.8 Other specified diseases of biliary tract
CPT/HCPCS: 74178; Q9967

== ENCOUNTER 2018-01-26 14:04 | Observation (INO) | payer MEDICAID, OTHER ==
[2018-01-26] MEDS ORDERED: fentaNYL 100 MCG/2 ML INJ ONE (14:24)
[2018-01-26 14:26] LABS: PLATELET COUNT 271 10^3/uL (150-400)
[2018-01-26 14:34] LABS: PROTIME(PATIENT) 13.4 SEC (12.0-15.0)
[2018-01-26] MEDS ORDERED: IOPAMIDOL (ISOVUE 370) 100 ML BTL IV ONE (14:53)
[2018-01-26] MEDS ORDERED: ASPIRIN RECTAL 300 MG SUPP PR ONE (15:08)
[2018-01-26] MEDS ORDERED: ACETAMINOPHEN 650 MG SUPP PR PRN (15:24)
[2018-01-26] MEDS ORDERED: ONDANSETRON 4 MG/2 ML VIAL IVP PRN (15:24)
[2018-01-26] MEDS ORDERED: ONDANSETRON DISINTEGRATING 4 MG TAB PO PRN (15:24)
[2018-01-26] MEDS ORDERED: NS 1,000 ML IV SCH (15:30)
--- NOTE | 2018-01-26 16:35 | ECHO ---
[email or web address] [address] [address] Main: [phone] Fax: Transthoracic Echocardiogram Name: CAROLINE GIBSON MR#: [id number] Study Date: 01/26/2018 Study Time: 04:07 PM Date of : 1945 Age: 72 year(s) Height: 157.5 cm (62 in.) Weight: 80.29 kg (177 lb.) BSA: 1.81 m2 Gender: Female Examination: Echo with Agitated Saline Indication: Pacemaker, Cerebrovascular: prior CVA, Bubble exam Image Quality: Contrast: Requested by: Mk Clinton BP: 113 mmHg/70 mmHg Heart Rate: Rhythm: Indication: Pacemaker, Cerebrovascular: prior CVA, Bubble exam Procedure Staff Quantitative Equity Head: Randall Wang RD Reading Physician: John Hazel MD Requesting Provider: Conclusions: Normal size left ventricle. EF is 54 %. No regional wall motion abnormality. There is a pacemaker lead noted in the right ventricle. An agitated saline study was performed and was negative for intracardiac shunting. Trivial to mild mitral regurgitation. No pericardial effusion. No significant change compared to 04/23/2017. Measurements: Chambers Valvular Assessment AV/MV Valvular Assessment TV/PV Normal Normal Normal Name Value Range Name Value Range Name Value Range Ao Alanna (MM): 3.3 cm (2.2 cm-3.7 AV Vmax: 1.04 m/s (1 m/s-1.7 PV Vmax: 0.77 m/s (0.6 m/s-0.9 cm) m/s) m/s) IVSd (2D): 1.1 cm (0.6 cm-1.1 AV maxP mmHg ( - ) PV PGmax: 2 mmHg ( - ) cm) LVOT Vmax: 0.60 m/s (0.7 m/s-1.1 LVDd (2D): 4.2 cm (3.9 cm-5.3 m/s) cm) MV E Vmax: 1.19 m/s ( - ) LVDs (2D): 3.0 cm (2.1 cm-4 cm) LVPWd (2D): 1.1 cm ( - ) LVEF (2D): 54 (>=54 %) Continued Measurements: Chambers Valvular Assessment AV/MV Name Value Name Value LADs Lon.8 cm MV E/E' Septal: 13.60 Patient: CAROLINE GIBSON Study Date: 01/26/2018 Page 1 of 2 04:07 PM LA Area: 15.8 cm2 Findings: Left Ventricle: Normal size left ventricle. No LV hypertrophy. Normal global systolic LV function. EF is 54 %. No regional wall motion abnormality. Right Ventricle: Normal size right ventricle. Normal RV function. There is a pacemaker lead noted in the right ventricle. Left Atrium: The left atrium is normal in size. An agitated saline study was performed and was negative for intracardiac shunting. Right Atrium: The right atrium is normal in size. Mitral Valve: The mitral valve is normal in appearance and function. Trivial to mild mitral regurgitation. Aortic Valve: The aortic valve is normal in appearance and function. The aortic valve is tri-leaflet. Tricuspid Valve: The tricuspid valve is normal in appearance and function. Pulmonic Valve: The pulmonic valve is normal in appearance and function. Aorta: The aorta is normal. Pericardium: No pericardial effusion. (No Signature Object) Patient: CAROLINE GIBSON Study Date: 01/26/2018 Page 2 of 2 04:07 PM D:_[id number]
--- NOTE | 2018-01-26 17:45 | EDPHY ---
HPI/HX/ROS/PE/MDM Narrative: CHIEF COMPLAINT: Stroke alert HISTORY OF PRESENT ILLNESS: 72-year-old female presents via EMS as a stroke alert. Patient reports that at 11 o'clock she developed slurred speech. Patient denies any word-finding difficulty, he numbness or tingling on the face , facial droop, weakness in the arms or legs, visual problems, or headache. She denies any drug use. She denies any alcohol intoxication. She denies prior symptoms similar. She reports feeling well last night. She slept in this morning as is her usual. REVIEW OF SYSTEMS: Aside from elements discussed in the HPI, a comprehensive 10-point review of systems was reviewed and is negative. PAST MEDICAL HISTORY: Diabetes, hypertension. Pacemaker secondary to heart block. 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 SOCIAL HISTORY: Lives at [facility]. VITAL SIGNS Reviewed by me. GENERAL: Well-developed, well-nourished, pleasant, conversant. Arriving via EMS. Speech seems somewhat thick to me, but not overtly dysarthric. HEENT: Atraumatic. Eyes: PERRL, EOMI, no nystagmus. No icterus. No injection. Mouth: moist mucous membranes. No erythema or lesions. Neck: Nontender to palpation. No adenopathy. LUNGS: Clear to auscultation bilaterally, no wheezes, rhonchi or rales. CARDIAC: Regular rate and rhythm, no rubs, murmurs or gallops. ABDOMEN: Soft, nontender, nondistended, bowel sounds normal. BACK: No CVA tenderness. EXTREMITIES: No trauma. No edema. Range of motion is normal throughout. NEURO: Alert and oriented, cranial nerves II through XII are intact with the exception of left eyelid droop which the patient reports is old. Motor strength 5 over 5 in all major muscle groups. Sensation intact to light touch. Normal gait. SKIN: Warm and dry, no rash. PSYCHIATRIC: Normal mentation, no agitation. ED Course: 72-year-old female presenting as a stroke alert. I met the EMS crew on arrival. Glucose in the field was 290's. Patient immediately proceeded to CT scan for CT noncontrast as she is within the 4.5 hr window for systemic tPA. I consulted with Dr. Radha Kirkpatrick , from [facility]. She evaluated the patient via the tele robot on the patient's return from CT scan. CT scan was read as negative for hemorrhage or signs of acute infarct. Dr. Guan recommends CT angiograms of the head and neck, admission to the hospital, swallow study, rectal Tylenol, and no further intervention such as tp A. Patient [facility] stroke score at this time is 1. Patient will be admitted to the hospitalist service. Patient's course was discussed with Dr. Chung Clinton. Patient received aspirin 300 mg rectal. MDM: Differential diagnoses the patient's presenting complaints was considered including but not limited to intracranial injury, TIA, ischemic cerebrovascular accident, hemorrhagic cerebrovascular accident, hypoglycemia, complex migraine , metastases, tumor, seizure, or electrolyte abnormality - Data Points Imaging Results: Imaging Impressions Chest X-Ray 01/26/18 14:08 Impression: 1. No acute process. 2. Hypoventilation airways disease similar to [address] 01/26/18 14:08 Impression: 1. Moderate atrophy. 2. No acute hemorrhage, hydrocephalus, or mass effect. 3. Cerebrovascular atherosclerosis. 4. No definite acute infarct. 5. Severe microvascular ischemic gliosis. Findings and recommendations discussed with Emergency Department physician, Arleth Headley MD at 14:38 hour, 01/26/2018. Final report concurs with initial preliminary interpretation. Head CTA 01/26/18 14:48 Impression: 1. No carotid atherosclerotic disease, stenosis, or dissection. 2. Patent vertebrobasilar system, with a dominant right vertebral artery. No vertebral dissection or flow-limiting stenosis. Measurement of carotid stenosis is based on the residual internal carotid diameter with [place] Symptomatic Carotid Endarterectomy Trial (NASCET) based stenosis levels. CT Angiogram of the Brain Clinical Indications: Slurred speech. Technique: CT angiogram of the brain and neck was performed, with the uneventful intravenous administration of 90 mL Isovue-370 contrast. Multiplanar reconstructions including 3D reconstructions performed and evaluated on moziya workstation in order to better evaluate the [place] vessels. Images were manipulated by the radiologist at the computer workstation. Dose reduction techniques were utilized. Findings: Major vessels of the [place] are adequately displayed, demonstrating no evidence of aneurysm, vascular malformation, flow-limiting stenosis, or occlusion. Bilateral cavernous internal carotid arteries and vertebrobasilar system demonstrates no evidence of flow-limiting stenosis, aneurysm, occlusion, or dissection. Superior sagittal sinus, transverse sinuses , and major veins demonstrate no evidence of intraluminal thrombi. origin of the left posterior cerebral artery. Impression: Negative CT angiogram of the brain. Findings and recommendations discussed with Emergency Department physician, Arleth Headley M.D., at 1525 hours, on January 26, 2018. Final report concurs with initial preliminary interpretation. Neck CTA 01/26/18 14:48 Impression: 1. No carotid atherosclerotic disease, stenosis, or dissection. 2. Patent vertebrobasilar system, with a dominant right vertebral artery. No vertebral dissection or flow-limiting stenosis. Measurement of carotid stenosis is based on the residual internal carotid diameter with [place] Symptomatic Carotid Endarterectomy Trial (NASCET) based stenosis levels. CT Angiogram of the Brain Clinical Indications: Slurred speech. Technique: CT angiogram of the brain and neck was performed, with the uneventful intravenous administration of 90 mL Isovue-370 contrast. Multiplanar reconstructions including 3D reconstructions performed and evaluated on [place] workstation in order to better evaluate the [place] vessels. Images were manipulated by the radiologist at the computer workstation. Dose reduction techniques were utilized. Findings: Major vessels of the [place] are adequately displayed, demonstrating no evidence of aneurysm, vascular malformation, flow-limiting stenosis, or occlusion. Bilateral cavernous internal carotid arteries and vertebrobasilar system demonstrates no evidence of flow-limiting stenosis, aneurysm, occlusion, or dissection. Superior sagittal sinus, transverse sinuses , and major veins demonstrate no evidence of intraluminal thrombi. origin of the left posterior cerebral artery. Impression: Negative CT angiogram of the brain. Findings and recommendations discussed with Emergency Department physician, Arleth Headley M.D., at 1525 hours, on January 26, 2018. Final report concurs with initial preliminary interpretation. Laboratory Results: Laboratory Results 01/26/18 14:13 01/26/18 14:13 01/26/18 01/26/18 01/26/18 15:04 14:14 14:13 WBC RBC Hgb POC Hgb 13.9 gm/dL gm/dL (12.6-16.3) Hct POC Hct 41 % % (38-47) MCV MCH MCHC RDW Plt Count MPV Neut % (Auto) Lymph % (Auto) [place] % (Auto) Eos % (Auto) Baso % (Auto) Nucleat RBC Rel Count Absolute Neuts (auto) Absolute Lymphs (auto) Absolute Monos (auto) Absolute Eos (auto) Absolute Basos (auto) Absolute Nucleated RBC Immature Gran % Immature Gran # PT INR POC Sodium 139 mEq/L mEq/L (135-145) Sodium 136 mEq/L mEq/L (135-145) POC Potassium 4.1 mEq/L mEq/L (3.3-5.0) Potassium 4.4 mEq/L mEq/L (3.3-5.0) POC Chloride 103 mEq/L mEq/L (97-110) Chloride 103 mEq/L mEq/L (97-110) Carbon Dioxide 23 mEq/l mEq/l (22-31) Anion Gap 10 mEq/L mEq/L (8-16) POC BUN 28 mg/dL H mg/dL (7-23) BUN 29 mg/dL H mg/dL (7-23) Creatinine 1.0 mg/dL mg/dL (0.6-1.0) POC Creatinine 1.0 mg/dL mg/dL (0.6-1.0) Estimated GFR 55 Glucose 293 mg/dL H mg/dL (70-100) POC Glucose 294 mg/dL H mg/dL (70-100) Calcium 8.9 mg/dL mg/dL (8.5-10.4) POC Troponin I 0.01 ng/mL ng/mL (0.00-0.08) 01/26/18 01/26/18 14:13 14:13 WBC 6.06 10^3/uL 10^3/uL (3.80-9.50) RBC 4.88 10^6/uL 10^6/uL (4.18-5.33) Hgb 13.2 g/dL g/dL (12.6-16.3) POC Hgb Hct 40.2 % % (38.0-47.0) POC Hct MCV 82.4 fL fL (81.5-99.8) MCH 27.0 pg L pg (27.9-34.1) MCHC 32.8 g/dL g/dL (32.4-36.7) RDW 15.9 % H % (11.5-15.2) Plt Count 271 10^3/uL 10^3/uL (150-400) MPV 10.2 fL fL (8.7-11.7) Neut % (Auto) 59.9 % % (39.3-74.2) Lymph % (Auto) 26.4 % % (15.0-45.0) [place] % (Auto) 11.6 % % (4.5-13.0) Eos % (Auto) 1.5 % % (0.6-7.6) Baso % (Auto) 0.3 % % (0.3-1.7) Nucleat RBC Rel Count 0.0 % % (0.0-0.2) Absolute Neuts (auto) 3.63 10^3/uL 10^3/uL (1.70-6.50) Absolute Lymphs (auto) 1.60 10^3/uL 10^3/uL (1.00-3.00) Absolute Monos (auto) 0.70 10^3/uL 10^3/uL (0.30-0.80) Absolute Eos (auto) 0.09 10^3/uL 10^3/uL (0.03-0.40) Absolute Basos (auto) 0.02 10^3/uL 10^3/uL (0.02-0.10) Absolute Nucleated RBC 0.00 10^3/uL 10^3/uL (0-0.01) Immature Gran % 0.3 % % (0.0-1.1) Immature Gran # 0.02 10^3/uL 10^3/uL (0.00-0.10) PT 13.4 SEC SEC (12.0-15.0) INR 1.00 (0.83-1.16) POC Sodium Sodium POC Potassium Potassium POC Chloride Chloride Carbon Dioxide Anion Gap POC BUN BUN Creatinine POC Creatinine Estimated GFR Glucose POC Glucose Calcium POC Troponin I Medications Given: Sodium Chloride (Ns) 1,000 mls @ 100 mls/hr IV CONT RYAN Stop: 07/25/18 15:29 Last Admin: 01/26/18 20:59 Dose: 1,000 mls Insulin Human Regular (Humulin R) 0 unit SC ACHS RYAN PRN Reason: Protocol Stop: 07/25/18 20:59 Last Admin: 01/26/18 20:59 Dose: 6 units Pantoprazole Sodium (Protonix) 40 mg PO HS RYAN Stop: 07/25/18 20:59 Last Admin: 01/26/18 20:59 Dose: 40 mg Pregabalin (Lyrica) 50 mg PO BID RYAN Stop: 07/25/18 20:59 Last Admin: 01/26/18 20:59 Dose: 50 mg Discontinued Medications Aspirin (Aspirin Rectal) 300 mg TN EDNOW ONE Stop: 01/26/18 15:09 Last Admin: 01/26/18 15:34 Dose: 300 mg Point of Care Test Results: Chemistry 01/26/18 01/26/18 15:04 14:14 POC Sodium 139 mEq/L mEq/L (135-145) POC Potassium 4.1 mEq/L mEq/L (3.3-5.0) POC Chloride 103 mEq/L mEq/L (97-110) POC BUN 28 mg/dL H mg/dL (7-23) POC Creatinine 1.0 mg/dL mg/dL (0.6-1.0) POC Glucose 294 mg/dL H mg/dL (70-100) POC Troponin I 0.01 ng/mL ng/mL (0.00-0.08) ISTAT H&H 01/26/18 14:14 POC Hgb 13.9 gm/dL gm/dL (12.6-16.3) POC Hct 41 % % (38-47) General Time Seen by Provider: 01/26/18 14:07 Initial Vital Signs: Initial Vital Signs Temperature (C) 37 C 01/26/18 14:24 Heart Rate 102 H 01/26/18 14:24 Respiratory Rate 20 01/26/18 14:24 Blood Pressure 132/80 H 01/26/18 14:24 O2 Sat (%) 93 01/26/18 14:24 O2 Delivery Mode Nasal Cannula O2 (L/minute) 2 Allergies/Adverse Reactions: atorvastatin [From Lipitor] Allergy (Verified 03/23/17 15:24) desvenlafaxine Allergy (Verified 03/23/17 15:24) diphenhydramine [From Benadryl] Allergy (Verified 03/23/17 15:24) divalproex sodium [From Depakote] Allergy (Verified 03/23/17 15:24) mushroom Allergy (Verified 03/23/17 15:24) venlafaxine [From Effexor] Allergy (Verified 03/23/17 15:24) metaclopramide Allergy (Uncoded 03/23/17 15:24) products containing shellfish Allergy (Uncoded 03/23/17 15:24) Home Medications: Medication Instructions Recorded DULoxetine [Cymbalta 60 MG (*)] 60 mg PO DAILY 03/23/17 Diclofenac Sodium 1% [Voltaren Gel 1 marla TP Q4 PRN 03/23/17 (*)] Levothyroxine [Synthroid 50 mcg 50 mcg PO DAILY06 03/23/17 (*)] Loperamide HCl [Imodium 2 mg (*)] 2 mg PO PRN 03/23/17 Ondansetron HCl [Zofran] 4 mg PO Q6 PRN 03/23/17 Pantoprazole Sodium [Protonix 40mg 40 mg PO HS 03/23/17 (*)] Pregabalin [Lyrica 50mg (*)] 50 mg PO BID 03/23/17 Insulin Glargine,Hum.rec.anlog 44 unit SQ DAILY 04/22/17 [Lantus Solostar] Sennosides [Senna Lax] 8.6 mg PO BID PRN 04/22/17 Acetaminophen [Tylenol 325mg (*)] 650 mg PO Q4HRS PRN tab 04/24/17 Evolocumab [Repatha Sureclick] 140 mg SQ Q14D 01/26/18 Fenofibrate 54 mg PO DAILY 01/26/18 Insulin Lispro [Humalog] 20 unit SQ TIDMEAL 01/26/18 Departure - Departure Disposition: [facility] Acute Clinical Impression: Slurred speech Stroke Qualifiers: CVA mechanism: unspecified Qualified Code(s): I63.9 - Cerebral infarction, unspecified Condition: Fair
--- NOTE | 2018-01-26 18:25 | PDGENHP ---
History and Physical - Chief Complaint Acute dysarthria - History of Present Illness Primary care provider: Mackenzie Lanier HPI: 72-year-old female presenting with acute dysarthria characterized as slurred, drunk sounding speech with onset of symptoms at 11:00 a.m. On the day of presentation and persistent duration thereafter. The patient reports that the onset of symptoms was sudden, and was particularly noticeable to [facility] staff. She is somewhat unclear as to the exact onset of the symptoms, as the patient had been privately working on e-mail communication on the morning of presentation prior to engaging with [facility] staff. She does endorse some associated poor sleep on the evening prior to presentation, as she has had stress exacerbated by family and friend responsibilities recently. She otherwise denies any camden paresthesia or camden paresis, and denies that she has ever experienced this kind of verbal expressive symptom in the past. History Information - Allergies/Home Medication List Allergies/Adverse Reactions: atorvastatin [From Lipitor] Allergy (Verified 03/23/17 15:24) desvenlafaxine Allergy (Verified 03/23/17 15:24) diphenhydramine [From Benadryl] Allergy (Verified 03/23/17 15:24) divalproex sodium [From Depakote] Allergy (Verified 03/23/17 15:24) mushroom Allergy (Verified 03/23/17 15:24) venlafaxine [From Effexor] Allergy (Verified 03/23/17 15:24) metaclopramide Allergy (Uncoded 03/23/17 15:24) products containing shellfish Allergy (Uncoded 03/23/17 15:24) Home Medications: DULoxetine [Cymbalta 60 MG (*)] 60 mg PO DAILY 03/23/17 [Last Taken 01/26/18] Diclofenac Sodium 1% [Voltaren Gel (*)] 1 marla TP Q4 PRN 03/23/17 [Last Taken ] Levothyroxine [Synthroid 50 mcg (*)] 50 mcg PO DAILY06 03/23/17 [Last Taken ] Loperamide HCl [Imodium 2 mg (*)] 2 mg PO PRN 03/23/17 [Last Taken 03/30/17] Ondansetron HCl [Zofran] 4 mg PO Q6 PRN 03/23/17 [Last Taken 04/22/17 04:00] Pantoprazole Sodium [Protonix 40mg (*)] 40 mg PO HS 03/23/17 [Last Taken ] Pregabalin [Lyrica 50mg (*)] 50 mg PO BID 03/23/17 [Last Taken 01/26/18 am dose] Insulin Glargine,Hum.rec.anlog [Lantus Solostar] 44 unit SQ DAILY 04/22/17 [ Last Taken 04/21/17] Sennosides [Senna Lax] 8.6 mg PO BID PRN 04/22/17 [Last Taken 04/21/17] Evolocumab [Repatha Sureclick] 140 mg SQ Q14D 01/26/18 [Last Taken 01/22/18] Fenofibrate 54 mg PO DAILY 01/26/18 [Last Taken 01/26/18] Insulin Lispro [Humalog] 20 unit SQ TIDMEAL 01/26/18 [Last Taken 01/26/18] I have personally reviewed and updated: family history, medical history, social history, surgical history - Past Medical History Additional medical history: Diabetes complicated by gastroparesis. Hypertension. Hyperlipidemia. Congenital left eye blindness. Complete heart block. Hypothyroidism. Idiopathic pancreatitis - Surgical History Additional surgical history: Permanent pacemaker. Right foot surgery - Family History Additional family history: No family history of stroke, she has a sibling with end-stage renal disease - Social History Smoking Status: Never smoked Alcohol Use: None Drug Use: None Additional social history: Patient reports that she is normally independent in her ADLs comma she lives at [facility] Review of Systems Review of Systems: ROS: 10pt was reviewed & negative except for what was stated in HPI & below Neurological: Reports: other (Dysarthria, stress) Physical Exam Physical Exam: Temp Pulse Resp BP Pulse Ox 37 C 87 18 125/70 H 91 L 01/26/18 14:24 01/26/18 17:37 01/26/18 17:37 01/26/18 17:37 01/26/18 17:37 O2 (L/minute) 3 Constitutional: no apparent distress, appears nourished, not in pain Eyes: PERRL, anicteric sclera, EOMI, other (Left eyelid droop chronic) Ears, Nose, Mouth, Throat: moist mucous membranes, ears appear normal, hard of hearing Cardiovascular: regular rate and rhythym, no murmur, rub, or gallop, No edema Respiratory: no respiratory distress, no rales or rhonchi, clear to auscultation Gastrointestinal: normoactive bowel sounds, soft, non-tender abdomen, no palpable masses Genitourinary: no bladder fullness, no bladder tenderness Skin: other (No vesicular lesions on face), No rash Neurologic: AAOx3, sensation intact bilaterally, CN II-XII Intact, other ( Chronic left eye lid droop), No weakness Psychiatric: interacting appropriately, not anxious, not encephalopathic, thought process linear Lab Data & Imaging Review 01/26/18 14:13 01/26/18 14:13 WBC 6.06 10^3/uL (3.80-9.50) 01/26/18 14:13 RBC 4.88 10^6/uL (4.18-5.33) 01/26/18 14:13 Hgb 13.2 g/dL (12.6-16.3) 01/26/18 14:13 POC Hgb 13.9 gm/dL (12.6-16.3) 01/26/18 14:14 Hct 40.2 % (38.0-47.0) 01/26/18 14:13 POC Hct 41 % (38-47) 01/26/18 14:14 MCV 82.4 fL (81.5-99.8) 01/26/18 14:13 MCH 27.0 pg (27.9-34.1) L 01/26/18 14:13 MCHC 32.8 g/dL (32.4-36.7) 01/26/18 14:13 RDW 15.9 % (11.5-15.2) H 01/26/18 14:13 Plt Count 271 10^3/uL (150-400) 01/26/18 14:13 MPV 10.2 fL (8.7-11.7) 01/26/18 14:13 Neut % (Auto) 59.9 % (39.3-74.2) 01/26/18 14:13 Lymph % (Auto) 26.4 % (15.0-45.0) 01/26/18 14:13 [place] % (Auto) 11.6 % (4.5-13.0) 01/26/18 14:13 Eos % (Auto) 1.5 % (0.6-7.6) 01/26/18 14:13 Baso % (Auto) 0.3 % (0.3-1.7) 01/26/18 14:13 Nucleat RBC Rel Count 0.0 % (0.0-0.2) 01/26/18 14:13 Absolute Neuts (auto) 3.63 10^3/uL (1.70-6.50) 01/26/18 14:13 Absolute Lymphs (auto) 1.60 10^3/uL (1.00-3.00) 01/26/18 14:13 Absolute Monos (auto) 0.70 10^3/uL (0.30-0.80) 01/26/18 14:13 Absolute Eos (auto) 0.09 10^3/uL (0.03-0.40) 01/26/18 14:13 Absolute Basos (auto) 0.02 10^3/uL (0.02-0.10) 01/26/18 14:13 Absolute Nucleated RBC 0.00 10^3/uL (0-0.01) 01/26/18 14:13 Immature Gran % 0.3 % (0.0-1.1) 01/26/18 14:13 Immature Gran # 0.02 10^3/uL (0.00-0.10) 01/26/18 14:13 PT 13.4 SEC (12.0-15.0) 01/26/18 14:13 INR 1.00 (0.83-1.16) 01/26/18 14:13 POC Sodium 139 mEq/L (135-145) 01/26/18 14:14 Sodium 136 mEq/L (135-145) 01/26/18 14:13 POC Potassium 4.1 mEq/L (3.3-5.0) 01/26/18 14:14 Potassium 4.4 mEq/L (3.3-5.0) 01/26/18 14:13 POC Chloride 103 mEq/L (97-110) 01/26/18 14:14 Chloride 103 mEq/L (97-110) 01/26/18 14:13 Carbon Dioxide 23 mEq/l (22-31) 01/26/18 14:13 Anion Gap 10 mEq/L (8-16) 01/26/18 14:13 POC BUN 28 mg/dL (7-23) H 01/26/18 14:14 BUN 29 mg/dL (7-23) H 01/26/18 14:13 Creatinine 1.0 mg/dL (0.6-1.0) 01/26/18 14:13 POC Creatinine 1.0 mg/dL (0.6-1.0) 01/26/18 14:14 Estimated GFR 55 01/26/18 14:13 Glucose 293 mg/dL (70-100) H 01/26/18 14:13 POC Glucose 294 mg/dL (70-100) H 01/26/18 14:14 Calcium 8.9 mg/dL (8.5-10.4) 01/26/18 14:13 POC Troponin I 0.01 ng/mL (0.00-0.08) 01/26/18 15:04 Visualized and Interpreted Chest x-ray results: Yes Chest X-Ray results: other (Mild hypo ventilation, pacemaker in place) Visualized and Interpreted EKG results: Yes EKG Interpretation: Positive for: other (Normal sinus rhythm with T-wave inversions inferiorly, poor R-wave progression in lead V2, intraventricular conduction delay) Assessment & Plan Assessment: 72-year-old female presents with acute dysarthria possibly secondary to CVA Plan: 1. Dysarthria. Acute, new problem this provider, further workup indicated. Potential etiologies include CVA versus TIA versus fatigue mediated -discussed with Dr. Arleth Headley, she has reported to me that the patient was evaluated by [facility], had NIH stroke scale of 1, decision was made not to utilize tPA -stroke order set placed, get swallow eval prior to starting diet -received rectal aspirin in emergency department, will continue rectally until patient passes swallow eval, she is not on aspirin at baseline -check lipids, check A1c -given that she has pacemaker, unable to perform MRI -get CT angio head and neck -get echocardiogram as her last echo was in April of 2017 -monitor on telemetry -get Neurology consultation in a.m. -permissive hypertension 2. Complete heart block. Chronic, reviewed outside records including 11/24/ [address] Mk eNlson, he reports that patient received permanent pacemaker for complete heart block, her echocardiogram at that time demonstrated ejection fraction 60-65%, no focal wall motion abnormalities, normal right ventricular function, discharged on ALAN-inhibitor, statin, insulin 3. Hypertension. Chronic, continue ALAN-inhibitor Diet. NPO until swallow eval, then cardiac diet Prophylaxis. High risk patient, SCDs, hold pharm given possible CVA Code. Full per patient, Stephanie and Ming Sierra are her joint MD POA Disposition. Anticipated discharge is 01/27, pending stabilization and further evaluation of above.
[2018-01-26] MEDS ORDERED: SENNOSIDES 1 TAB PO PRN (19:52)
[2018-01-26] MEDS ORDERED: DICLOFENAC SODIUM 1% 100 GM GEL TP PRN (19:52)
[2018-01-26] MEDS ORDERED: D50W 25 GM/50 ML SYR IVP PRN (19:53)
[2018-01-26] MEDS ORDERED: LOPERAMIDE HCL 2 MG CAP PO PRN (20:00)
[2018-01-26] MEDS: PREGABALIN 50 MG CAP PO SCH (20:59)
[2018-01-26] MEDS: PANTOPRAZOLE SODIUM 40 MG TAB PO SCH (20:59)
[2018-01-26] MEDS: INSULIN REGULAR HUMAN 100 UNIT/ML UNIT SC SCH (20:59)
--- NOTE | 2018-01-26 22:37 | CPEKG ---
Test Reason : OPEN Blood Pressure : / mmHG Vent. Rate : 099 BPM Atrial Rate : 099 BPM P-R Int : 178 ms QRS Dur : 133 ms QT Int : 409 ms P-R-T Axes : 058 093 -33 degrees QTc Int : 525 ms Sinus rhythm Nonspecific intraventricular conduction delay Anteroseptal infarct, old Nonspecific T abnormalities, inferior leads Confirmed by Arleth Headley ([id number]) on 01/26/2018 10:36:28 PM Referred By: Confirmed By:Arleth Headley
[2018-01-27] MEDS: LEVOTHYROXINE 50 MCG TAB PO SCH (06:02)
--- NOTE | 2018-01-27 08:25 | GCON ---
[f rep st] CONSULTATION NEUROLOGIC CONSULTATION REFERRING PHYSICIAN: Mk Clinton MD HISTORY: The patient is a 72-year-old woman whom I am asked to see in neurologic consultation regard ing suspected stroke. The patient was at [facility] yesterday and working on her computer when she wa s aware of an abrupt change in her speech. It was slurred and staff recognized it as a clear differe nce, although the exact time of onset is uncertain, it seems very close to around 11 a.m. She came t o the emergency room where she was seen and [facility] evaluated her and felt that she was not a candid ate for tPA at that time with a relatively low NIH Stroke Scale listed at 1. Her head CT was negativ e for acute stroke or hemorrhage and CT angiogram of the head and neck did not reveal any significant stenoses. She says she has never had a stroke before. She feels that her symptoms have not changed overnight. She denies headache. She has no chest pain, palpitation, or shortness of breath. Last year she had a pacemaker for complete heart block. Prior to coming to the hospital she was not on an y particular blood thinner. Since coming in, she has received aspirin and a rectal suppository. She is not aware of any other new symptoms such as weakness or numbness. She has history of diabetes with gastroparesis, hypertension, hyperlipidemia, congenital left eye blindness, complete heart bloc k status post pacemaker, hypothyroidism, some amputations of toes on the right foot from complication s of diabetes. FAMILY HISTORY: Noncontributory. SOCIAL HISTORY: Never smoked. No history of drug use. 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 At her baseline, she is independent with her activities of daily living and does not need any form of assistance to usually ambulate. PHYSICAL EXAM: VITAL SIGNS: Blood pressure is 134/80, pulse of 87, respirations 18, temperature 36. 8. GENERAL: She is well developed, in no acute distress. EYES: Clear. NECK: Supple, with no bru its or masses. CARDIAC: Regular rate and rhythm. NEUROLOGIC: She is awake, alert and attentive, a nd fully oriented to person, place, time and general situation. Pupils poorly reactive on the left, where she is blind. Right eye has 3 mm pupil, reactive with no visual field loss. Extraocular movem ents are intact. She has normal facial sensation, but has a right lower facial droop and prominent d ysarthria, but I have no trouble understanding her. Palate elevates symmetrically. Tongue protrudes midline. Hearing is preserved. Motor: Normal muscle bulk and tone, but I feel there is a little b it of drift in the right upper extremity and slowness of rapid alternating movements. In the lower e xtremities, there is proximal weakness bilaterally but not clear asymmetry. Sensation is preserved f or temperature, light touch. No ataxia on [id number]. LABORATORY STUDIES: Show unremarkable CBC, normal INR, and electrolytes show elevated blood glucose in the 200-300 range and triglycerides 328, LDL cholesterol 39, HDL 45. Otherwise unremarkable elect rolytes. Echocardiogram reveals good ejection fraction and no evidence of a PFO or embolic source identified. As noted, CT/CT angiograms do not show large vessel or small vessel stenosis and no evidence of acut e stroke. IMPRESSION: Total unit time of 70 minutes in evaluating this patient who has a [employer] Stroke Scale of 5, 3 points were given because she has blindness in the left eye, but that is old. The new findings are the facial droop and dysarthria and some mild right hemiparesis. The pat ient is stable overnight, but almost certainly has a stroke based on all the clinical findings despit e the negative head CT, which is likely to lag for a few days before anything would show up. She is not a candidate for an MRI and that is not needed at this point, nor does repeat head CT need to be p erformed to visualize what is almost certainly a small vessel ischemic stroke related to her multiple risk factors for small vessel disease. She had an allergy listed to atorvastatin. Therefore, I am not sure she can receive any other statin therapy, but she would be a candidate for consideration of that. However, LDL is 39, so I would say it is reasonable not to put her on a statin. She should co ntinue indefinitely on aspirin therapy and needs physical, occupational, and speech therapies and hop efully can return to [facility] within the next 24-48 hours for ongoing rehabilitation therapies unl ess she is found to need inpatient rehab. /[id number]/MODL
[2018-01-27] MEDS: DULoxetine 60 MG CAP PO SCH (08:34)
[2018-01-27] MEDS: PREGABALIN 50 MG CAP PO SCH ×2 (08:34→22:28)
[2018-01-27] MEDS: INSULIN GLARGINE 100 UNITS/ML UNIT SC SCH (08:35)
[2018-01-27] MEDS: INSULIN REGULAR HUMAN 100 UNIT/ML UNIT SC SCH ×4 (08:36→22:27)
[2018-01-27] MEDS: ASPIRIN 325 MG TAB PO SCH (08:58)
[2018-01-27] MEDS ORDERED: FENOFIBRATE 54 MG PO SCH (09:00)
[2018-01-27] MEDS ORDERED: ASPIRIN RECTAL 300 MG SUPP PR SCH (09:00)
--- NOTE | 2018-01-27 09:29 | HOSPPROG ---
Hospitalist Progress Note Assessment/Plan: 72-year-old female presents with acute dysarthria possibly secondary to CVA. Reviewed her care with Dr Chaudhari, will monitor overnight *Likely stroke with associated Dysarthria. -ASA therapy -hasn't tolerated statins in the past (listed as an allergy), LDL is 39 -echo shows no PFO, ef stable -CT shows no acute stroke (can't get an MRI due to having a pacemaker) -has mild right sided weakness *tachycardia -diff to tell if she has any afib w pacer in place -will get pacer interrogated -get a 12 lead EKG *hx of CHB s/p pacer *hyperglycemia, concern for adult onset diabetes -awaiting A1c -will place on an ADA diet for now -ask dietary to see *htn -systolic bp is 144 -allow for permissive hypertension *Plan: will get pacer interrogated, this will help evaluate if she has any afib , monitor on tele overnight due to the acute stroke. Subjective: Teodora feels fine, anxious to go home. Objective: Vital Signs Temp Pulse Resp BP Pulse Ox 36.9 C 94 20 144/93 H 91 L 01/27/18 07:48 01/27/18 07:48 01/27/18 07:48 01/27/18 07:48 01/27/18 07:48 Laboratory Results 01/27/18 04:53 01/26/18 01/27/18 01/28/18 05:59 05:59 05:59 Intake Total 1269 Output Total 700 200 Balance 569 -200 PT 13.4 SEC (12.0-15.0) 01/26/18 14:13 INR 1.00 (0.83-1.16) 01/26/18 14:13 - Physical Exam Constitutional: no apparent distress, appears nourished Ears, Nose, Mouth, Throat: hearing normal Cardiovascular: regular rate and rhythym Respiratory: no respiratory distress Gastrointestinal: normoactive bowel sounds Skin: warm Musculoskeletal: generalized weakness (right side) Neurologic: AAOx3, sensation intact bilaterally, CN II-XII Intact, No numbness, No pronator drift, No facial droop Psychiatric: interacting appropriately, not anxious, not encephalopathic, thought process linear ICD10 Worksheet Patient Problems: Problems Problem Status Onset Slurred speech Acute Stroke Acute Third degree heart block Acute
[2018-01-27] MEDS: FENOFIBRATE 48 MG TAB PO SCH (11:08)
--- NOTE | 2018-01-27 13:23 | CPEKG ---
Test Reason : OPEN Blood Pressure : / mmHG Vent. Rate : 092 BPM Atrial Rate : 091 BPM P-R Int : 192 ms QRS Dur : 129 ms QT Int : 416 ms P-R-T Axes : 052 082 020 degrees QTc Int : 515 ms Sinus rhythm Probable left atrial enlargement IVCD, consider atypical LBBB QTc prolongation is noted in this study (as well as prior ECG) Possible anteroseptal infarction (Q waves in V1/V2) Confirmed by Mk Nelson ([id number]) on 01/27/2018 1:23:20 PM Referred By: Confirmed By:Mk Nelson
--- NOTE | 2018-01-27 18:20 | ASMTCMCOM ---
CM Note CM Note Notes: Reviewed chart/therapy recommendations. Met with patient to discuss discharge plan. Patient currently lives at [facility] and states she receives therapy through [facility]. Spoke with Norberto at [facility], will need to send rep, Karmen, out on morning to assess before accepting patient back. Referral has been sent to [facility] for PT/OT/WAVE SOLDERING MACHINE OPERATOR. PAtient states her friend can likely transport her from hospital back to . CM will follow-up with Karmen when she is on site on . Plan: Likely return to [facility] with [facility] PT/OT/WAVE SOLDERING MACHINE OPERATOR Date Signed: 01/27/2018 06:20 PM Electronically Signed By:Michelle Jackson RN
[2018-01-27] MEDS: PANTOPRAZOLE SODIUM 40 MG TAB PO SCH (22:28)
[2018-01-28] MEDS: LEVOTHYROXINE 50 MCG TAB PO SCH (05:42)
--- NOTE | 2018-01-28 07:36 | NEUROPROG ---
Assessment: Total unit time of 15 minutes. Patient with stroke and stable deficits and OK to discharge with follow up with me in one month Subjective: patient feels about the same Objective: Vital Signs Temp Pulse Resp BP Pulse Ox 36.8 C 94 20 114/91 H 95 01/28/18 04:00 01/28/18 04:00 01/28/18 04:00 01/28/18 04:00 01/28/18 04:00 Laboratory Results 01/27/18 04:53 01/27/18 01/28/18 01/29/18 05:59 05:59 05:59 Intake Total 1269 600 Output Total 700 950 Balance 569 -350 PT 13.4 SEC (12.0-15.0) 01/26/18 14:13 INR 1.00 (0.83-1.16) 01/26/18 14:13 right facial droop and dysarthria and mild right arm weakness Allergies/Adverse Reactions: atorvastatin [From Lipitor] Allergy (Verified 03/23/17 15:24) desvenlafaxine Allergy (Verified 03/23/17 15:24) diphenhydramine [From Benadryl] Allergy (Verified 03/23/17 15:24) divalproex sodium [From Depakote] Allergy (Verified 03/23/17 15:24) mushroom Allergy (Verified 03/23/17 15:24) venlafaxine [From Effexor] Allergy (Verified 03/23/17 15:24) metaclopramide Allergy (Uncoded 03/23/17 15:24) products containing shellfish Allergy (Uncoded 03/23/17 15:24)
[2018-01-28] MEDS: INSULIN REGULAR HUMAN 100 UNIT/ML UNIT SC SCH ×2 (08:20→12:20)
[2018-01-28] MEDS: ASPIRIN 325 MG TAB PO SCH (09:32)
[2018-01-28] MEDS: PREGABALIN 50 MG CAP PO SCH (09:32)
[2018-01-28] MEDS: DULoxetine 60 MG CAP PO SCH (09:32)
[2018-01-28] MEDS: INSULIN GLARGINE 100 UNITS/ML UNIT SC SCH (09:33)
[2018-01-28] MEDS: FENOFIBRATE 48 MG TAB PO SCH (09:33)
--- NOTE | 2018-01-28 11:56 | HOSPPROG ---
Hospitalist Progress Note Assessment/Plan: 72-year-old female presents with acute dysarthria possibly secondary to CVA. *Acute CVA with associated Dysarthria. -ASA therapy -hasn't tolerated statins in the past (listed as an allergy), LDL is 39 -echo shows no PFO, ef stable -CT shows no acute stroke (can't get an MRI due to having a pacemaker) -has mild right sided weakness -reviewed tele, she has been in sinus *tachycardia -pacer was interrogated and she had 5 episodes of tachycardia -she will f/u with Dr Nelson in the next 2 weeks *hx of CHB s/p pacer *hyperglycemia,diabetic -A1c is15.4 -ADA diet -patient is able to give herself injections, has been doing this for years -she's not always compliant w diet -she has plans to f/u with an Film Splicer *hypoxemia -she says at baseline she runs around 88% and it improves w activity -she does not want home oxygen *htn -bp is stable *Plan: dc home w close f/u w Dr Ding Subjective: Teodora wants to go home. Objective: Vital Signs Temp Pulse Resp BP Pulse Ox 36.6 C 91 22 H 131/83 H 92 01/28/18 08:25 01/28/18 08:25 01/28/18 08:25 01/28/18 08:25 01/28/18 08:25 Laboratory Results 01/27/18 04:53 01/27/18 01/28/18 01/29/18 05:59 05:59 05:59 Intake Total 1269 600 Output Total 700 950 400 Balance 569 -350 -400 PT 13.4 SEC (12.0-15.0) 01/26/18 14:13 INR 1.00 (0.83-1.16) 01/26/18 14:13 - Physical Exam Constitutional: no apparent distress, appears nourished, not in pain Ears, Nose, Mouth, Throat: hearing normal Respiratory: no respiratory distress Skin: warm Musculoskeletal: full muscle strength Neurologic: AAOx3 Psychiatric: interacting appropriately, not anxious, not encephalopathic ICD10 Worksheet Patient Problems: Problems Problem Status Onset Slurred speech Acute Stroke Acute Third degree heart block Acute
[2018-01-28 12:58] VITALS: BP 123/95
--- NOTE | 2018-01-28 13:04 | PDIAF ---
- Diagnosis Diagnosis: CVA, uncontrolled diabetes Code Status: Full Code - Medication Management Discharge Medications: Medications to Continue on Transfer DULoxetine [Cymbalta 60 MG (*)] 60 mg PO DAILY 03/23/17 [Last Taken 01/26/18] Diclofenac Sodium 1% [Voltaren Gel (*)] 1 marla TP Q4 PRN 03/23/17 [Last Taken ] Levothyroxine [Synthroid 50 mcg (*)] 50 mcg PO DAILY06 03/23/17 [Last Taken ] Loperamide HCl [Imodium 2 mg (*)] 2 mg PO PRN 03/23/17 [Last Taken 03/30/17] Ondansetron HCl [Zofran] 4 mg PO Q6 PRN 03/23/17 [Last Taken 04/22/17 04:00] Pantoprazole Sodium [Protonix 40mg (*)] 40 mg PO HS 03/23/17 [Last Taken ] Pregabalin [Lyrica 50mg (*)] 50 mg PO BID 03/23/17 [Last Taken 01/26/18 am dose] Insulin Glargine,Hum.rec.anlog [Lantus Solostar] 44 unit SQ DAILY 04/22/17 [ Last Taken 04/21/17] Sennosides [Senna Lax] 8.6 mg PO BID PRN 04/22/17 [Last Taken 04/21/17] Acetaminophen [Tylenol 325mg (*)] 650 mg PO Q4HRS PRN tab 04/24/17 [Last Taken Unknown] Evolocumab [Repatha Sureclick] 140 mg SQ Q14D 01/26/18 [Last Taken 01/22/18] Fenofibrate 54 mg PO DAILY 01/26/18 [Last Taken 01/26/18] Insulin Lispro [Humalog Kwikpen U-100] 20 unit SQ TIDMEAL 01/26/18 [Last Taken 01/26/18] Aspirin [Aspirin 325 mg (*)] 325 mg PO DAILY tab 01/28/18 [Last Taken Unknown] Discharge Medications: Refer to the Discharge Home Medication list for PRN reason. PICC Care - Routine: N/A - Orders Services needed: Home Care, Registered Nurse Home Care Face to Face: I certify that this patient was under my care and that I had the required [id number] encounter meeting the encounter requirements on the discharge day. My findings support the fact that the patient is homebound as defined in Home Care Face to Face Continued: CMS Chapter 7 Medicare Benefits Manual 30.1.1 , The condition of the patient is such that there exists a normal inability to leave home and consequently, leaving home would require a considerable and taxing effort. Isolation Type: None Diet Recommendation: ADA 1800 consistent carb Diet Texture: Regular Texture Diet Additional Instructions: Follow up with Dr. Chaudhari in one month about the stroke. [phone] Nelson in 2 weeks follow up with your pre press operator you need better control of your glucoses to help prevent heart disease, stroke, kidney disease check glucose before meals and at bedtime - Follow Up Care Current Providers and Referrals: NONE *PRIMARY CARE P,. [Primary Care Provider] - Mk Nelson MD [Medical Doctor] -
--- NOTE | 2018-01-28 13:30 | GDS ---
[f rep st] DISCHARGE SUMMARY DISCHARGE DIAGNOSES: 1. Acute cerebrovascular accident with residual right-sided weakness and dysarthria. 2. Tachycardia. 3. History of complete heart block status post pacemaker. 4. Diabetes type 2, uncontrolled. 5. Hypoxemia. 6. Hypertension. CONSULTATION: Dru Chaudhari MD. Briefly the patient is a 72-year-old woman who was admitted with concern for suspected stroke. She was at [facility] working on her computer when she was aware of abrupt change in her speech. Her speech was slurred, and the staff recognized a clear difference, but the onset was unclear. She was admitted and not a candidate for tPA. Head CT was negative for acute stroke or hemorrhage. CT angiogram of the head and neck did not reveal any significant stenosis. She has a pacemaker in place for complete heart block. Subsequently, she was not able to have an MRI. Of note, she has congenital left eye blindness. The plan is for her to return to [facility], and further follow up with Dr. Chaudhari and with Dr. Nelson. HOSPITAL COURSE: 1. Acute CVA with associated dysarthria and residual right-sided weakness. She is on aspirin therapy. She has not tolerated statins in the past and list as an allergy. Her echo shows no PFO. Her ejection fraction is stable. Reviewed her hall monitor. She has been in sinus rhythm. She has had some episodes of tachycardia. 2. Tachycardia. Her pacemaker was interrogated. She had 5 episodes of atrial tachycardia. No atrial fibrillation was noted. Recommended she see Dr. Nelson in the next 2 weeks. 3. History of complete heart block. She is status post pacer. 4. Diabetes type 2. A1c is 15.4. She is on ADA diet. She is able to give herself injections. She has been doing this for years. She says she is not compliant with her diet. Reviewed with her that high blood sugars increase her risk of stroke. 5. Hypoxemia. At baseline, she runs about 88%. She says this improves with activity. She does not want oxygen for home use. 6. Hypertension. Blood pressure is stable. DISCHARGE CONDITION: Stable. Blood pressure is 123/95, heart rate of 99, respiratory rate of 20, O2 saturation on room air 91%, temperature is 36.7 Celsius. MEDICATIONS AT DISCHARGE: Please see the EMR. DISCHARGE INSTRUCTIONS: 1. Further follow up with Dr. Dru Chaudhari. 2. Return if she has any stroke-like symptoms or any chest pain. /[id number]/MODL MTDD
--- NOTE | 2018-01-28 13:49 | PDIAF ---
- Diagnosis Diagnosis: CVA, uncontrolled diabetes Code Status: Full Code - Medication Management Discharge Medications: Medications to Continue on Transfer DULoxetine [Cymbalta 60 MG (*)] 60 mg PO DAILY 03/23/17 [Last Taken 01/26/18] Diclofenac Sodium 1% [Voltaren Gel (*)] 1 marla TP Q4 PRN 03/23/17 [Last Taken ] Levothyroxine [Synthroid 50 mcg (*)] 50 mcg PO DAILY06 03/23/17 [Last Taken ] Loperamide HCl [Imodium 2 mg (*)] 2 mg PO PRN 03/23/17 [Last Taken 03/30/17] Ondansetron HCl [Zofran] 4 mg PO Q6 PRN 03/23/17 [Last Taken 04/22/17 04:00] Pantoprazole Sodium [Protonix 40mg (*)] 40 mg PO HS 03/23/17 [Last Taken ] Pregabalin [Lyrica 50mg (*)] 50 mg PO BID 03/23/17 [Last Taken 01/26/18 am dose] Insulin Glargine,Hum.rec.anlog [Lantus Solostar] 44 unit SQ DAILY 04/22/17 [ Last Taken 04/21/17] Sennosides [Senna Lax] 8.6 mg PO BID PRN 04/22/17 [Last Taken 04/21/17] Acetaminophen [Tylenol 325mg (*)] 650 mg PO Q4HRS PRN tab 04/24/17 [Last Taken Unknown] Evolocumab [Repatha Sureclick] 140 mg SQ Q14D 01/26/18 [Last Taken 01/22/18] Fenofibrate 54 mg PO DAILY 01/26/18 [Last Taken 01/26/18] Insulin Lispro [Humalog Kwikpen U-100] 20 unit SQ TIDMEAL 01/26/18 [Last Taken 01/26/18] Aspirin [Aspirin 325 mg (*)] 325 mg PO DAILY tab 01/28/18 [Last Taken Unknown] Discharge Medications: Refer to the Discharge Home Medication list for PRN reason. PICC Care - Routine: N/A - Orders Services needed: Home Care, Registered Nurse, Physical Therapy, Occupational Therapy, Speech Language Pathologist Home Care Face to Face: I certify that this patient was under my care and that I had the required [id number] encounter meeting the encounter requirements on the discharge day. My findings support the fact that the patient is homebound as defined in Home Care Face to Face Continued: [facility] Chapter 7 Medicare Benefits Manual 30.1.1 , The condition of the patient is such that there exists a normal inability to leave home and consequently, leaving home would require a considerable and taxing effort. Isolation Type: None Diet Recommendation: ADA 1800 consistent carb Diet Texture: Regular Texture Diet Additional Instructions: Follow up with Dr. Chaudhari in one month about the stroke. [phone] Nelson in 2 weeks follow up with your die cast patternmaker you need better control of your glucoses to help prevent heart disease, stroke, kidney disease check glucose before meals and at bedtime - Follow Up Care Current Providers and Referrals: NONE *PRIMARY CARE P,. [Primary Care Provider] - Mk Nelson MD [Medical Doctor] -
--- NOTE | 2018-01-28 15:23 | ASMTLACE ---
LACE Length of stay for Answers: 3 days current admission Acuity / Level of Answers: No Care: Did the patient have an inpatient admission? Comorbidities - select Answers: Diabetes (uncontrolled or all that apply controlled) Other Notes: HTN; HLD; Hypothyroid # of Emergency department Answers: 1-2 visits in the last 6 months Score: 6 Date Signed: 01/28/2018 03:23 PM Electronically Signed By:RACHEL Gordillo
--- NOTE | 2018-01-28 15:26 | ASMTCMCOM ---
CM Note CM Note Notes: Pt medically stable for d/c back to [facility] with [facility]. Karmen GONZALEZ completed on-site assessment this am and approves pt return. Orders, med list faxed to [facility]. [facility] will provide HHC because [facility] only provides OT/PT/DOCK OPERATIONS SUPERVISOR and Hospitalist Kemal ordered HHC RN for pt uncontrolled diabetes. Orders to be obtained via [employer]. Date Signed: 01/28/2018 03:25 PM Electronically Signed By:RACHEL Gordillo
--- NOTE | 2018-01-28 15:28 | ASDISCHSUM ---
Discharge Information Plan Status:Assisted Living Medically Cleared to Leave: Discharge Date:01/28/2018 02:05 PM CM D/C Disposition: ADT D/C Disposition:Home Health Service Projected Discharge Date:01/28/2018 11:00 AM Transportation at D/C:Friend Discharge Delay Reason: Follow-Up Date:01/28/2018 11:00 AM Discharge Slot: Final Diagnosis: Placement Information Referral Type:Assisted Living Residence Referral ID:[id number] Provider Name:Jluis Atkinson Address 1:[address] Phone Number: Address 2:[place] Fax Number: [facility]:[place] Selection Factors: State:[place] Referral Type:*Home Health Care Services Referral ID:[id number] Provider Name:[facility] Address 1:[address] Address 2: City:[place] Selection Factors: State:[place] Patient Contact Information Contact Name:BIJU Relationship:Friend Address: Work Phone: City: [facility] Phone: State/Zip Code: Email: Financial Information Financial Class:Medicare Advantage Plans Primary Plan Desc:[facility] [facility] [employer] Primary Plan Number:[id number] Secondary Plan Desc: Secondary Plan Number: Assessment Information LACE LACE Length of stay for Answers: 3 days current admission Acuity / Level of Answers: No Care: Did the patient have an inpatient admission? Comorbidities - select Answers: Diabetes (uncontrolled or all that apply controlled) Other Notes: HTN; HLD; Hypothyroid # of Emergency department Answers: 1-2 visits in the last 6 months Score: 6 Date Signed: 01/28/2018 03:23 PM Electronically Signed By:RACHEL Gordillo [facility] TOMMY Progress Note CM Note CM Note Notes: Reviewed chart/therapy recommendations. Met with patient to discuss discharge plan. Patient currently lives at [facility] and states she receives therapy through [facility]. Spoke with Norberto at [facility], will need to send rep, Karmen, out on morning to assess before accepting patient back. Referral has been sent to [facility] for PT/OT/END USER CONSULTANT. PAtient states her friend can likely transport her from hospital back to . will follow-up with Karmen when she is on site on . Plan: Likely return to [facility] with [facility] PT/OT/END USER CONSULTANT Date Signed: 01/27/2018 06:20 PM Electronically Signed By:Michelle Jackson RN [facility] CM Progress Note CM Note CM Note Notes: Pt medically stable for d/c back to [facility] with [facility]. Karmen with completed on-site assessment this am and approves pt return. Orders, med list faxed to [facility]. [facility] will provide C because [facility] only provides OT/PT/END USER CONSULTANT and Hospitalist Kemal monet C RN for pt uncontrolled diabetes. Orders to be obtained via [employer]. Date Signed: 01/28/2018 03:25 PM Electronically Signed By:RACHEL Gordillo Intervention Information
== END 2018-01-28 14:05 | disposition home health service (06) ==
LOC: EDUNIT# → F3N 18:35
PROVIDERS: ADMIT Internal Medicine; ATTEND Internal Medicine
DX: I63.9 Cerebral infarction, unspecified (principal); R47.1 Dysarthria and anarthria; G81.91 Hemiplegia, unspecified affecting right dominant side; E11.65 Type 2 diabetes mellitus with hyperglycemia; R09.02 Hypoxemia; I10 Essential (primary) hypertension; R00.0 Tachycardia, unspecified
CPT/HCPCS: 70450; 70496; 70498; 71046; 92507; 92523; 93005; 93306; 96372; 97161; 97166; 97535; 99285; G0378; G8978; G8979; G8980; G8987; G8988; G8989; G8999; G9186; J1815; J3010; Q9967; 82435-PO; 82565-PO; 82947-PO; 84132-PO; 84295-PO; 84484-PO; 84520-PO; 85014-PO

== ENCOUNTER → 2018-08-25 | Outpatient (CLI) | payer OTHER | LOC: FIMAGING 09:13 | PROVIDERS: ATTEND Internal Medicine Gastroenterology | DX: K31.84 Gastroparesis (principal) | CPT/HCPCS: 78264; A9541 ==

== ENCOUNTER 2018-08-30 14:38 | Emergency (ER) | payer OTHER ==
--- NOTE | 2018-08-30 14:37 | EDPHY ---
H & P Time Seen by Provider: 08/30/18 14:40 Constitutional: Initial Vital Signs Temperature (C) 36.7 C 08/30/18 14:49 Heart Rate 105 H 08/30/18 14:49 Respiratory Rate 16 08/30/18 14:49 Blood Pressure 136/91 H 08/30/18 14:49 O2 Sat (%) 90 L 08/30/18 14:49 O2 Delivery Mode Nasal Cannula O2 (L/minute) 2 Allergies/Adverse Reactions: atorvastatin Allergy (Unknown, Unverified 08/30/18 14:51) diphenhydramine Allergy (Unknown, Unverified 08/30/18 14:51) divalproex sodium Allergy (Unknown, Unverified 08/30/18 14:51) venlafaxine Allergy (Unknown, Unverified 08/30/18 14:51) desvenlafaxine Allergy (Verified 08/30/18 14:51) mushroom Allergy (Verified 08/30/18 14:51) metaclopramide Allergy (Uncoded 08/30/18 14:51) products containing shellfish Allergy (Uncoded 08/30/18 14:51) Home Medications: Medication Instructions Recorded DULoxetine [Cymbalta 60 MG (*)] 60 mg PO DAILY 03/23/17 Diclofenac Sodium 1% [Voltaren Gel 1 marla TP Q4 PRN 03/23/17 (*)] Levothyroxine [Synthroid 50 mcg 50 mcg PO DAILY06 03/23/17 (*)] Loperamide HCl [Imodium 2 mg (*)] 2 mg PO PRN 03/23/17 Ondansetron HCl [Zofran] 4 mg PO Q6 PRN 03/23/17 Pantoprazole Sodium [Protonix 40mg 40 mg PO HS 03/23/17 (*)] Pregabalin [Lyrica 50mg (*)] 50 mg PO BID 03/23/17 Insulin Glargine,Hum.rec.anlog 44 unit SQ DAILY 04/22/17 [Lantus Solostar] Sennosides [Senna Lax] 8.6 mg PO BID PRN 04/22/17 Acetaminophen [Tylenol 325mg (*)] 650 mg PO Q4HRS PRN tab 04/24/17 Evolocumab [Repatha Sureclick] 140 mg SQ Q14D 01/26/18 Fenofibrate 54 mg PO DAILY 01/26/18 Insulin Lispro [Humalog Kwikpen 20 unit SQ TIDMEAL 01/26/18 U-100] Aspirin [Aspirin 325 mg (*)] 325 mg PO DAILY tab 01/28/18 Clopidogrel Bisulfate [Plavix (*)] 75 mg PO DAILY #20 tab 08/30/18 Medical Decision Making - Diagnostics Imaging Results: Imaging Impressions Head CT 08/30/18 14:43 Impression: 1. Moderate atrophy. 2. No acute hemorrhage, hydrocephalus, or mass effect. 3. Cerebrovascular atherosclerosis. 4. No definite acute infarct. 5. Moderate microvascular ischemic gliosis. 6. Old lacunar infarct left thalamus and left basal ganglia. 7. Consider MRI of the brain, if there is continued clinical concern. Findings and recommendations discussed with Emergency Department physician, Mauri Parry MD, at 1540 hours, 08/30/2018. Final report concurs with initial preliminary interpretation. Head CTA 08/30/18 16:07 Impression: 1. Normal CT angiogram of the neck. 2. Normal CT angiogram of the [place] of [place] with normal variation, as detailed above. 3. Stable Venous angioma right posterior frontal lobe periventricular white matter region adjacent punctate calcifications. 4. Stable Calcifications associated with small left orbit. Note: All calculations were performed using NASCET criteria. Findings discussed with Mauri Parry MD at 17:40 hour, 08/30/2018. Neck CTA 08/30/18 16:07 Impression: 1. Normal CT angiogram of the neck. 2. Normal CT angiogram of the [place] of [place] with normal variation, as detailed above. 3. Stable Venous angioma right posterior frontal lobe periventricular white matter region adjacent punctate calcifications. 4. Stable Calcifications associated with small left orbit. Note: All calculations were performed using NASCET criteria. Findings discussed with Mauri Parry MD at 17:40 hour, 08/30/2018. Imaging: Discussed imaging studies w/ inbound call center agent Radiologist, I viewed and interpreted images myself ED Course/Re-evaluation: CHIEF COMPLAINT: Slurred speech HISTORY OF PRESENT ILLNESS: The patient is a 72 y/o female with a history of a CVA with right-sided weakness and dysarthria, pacemaker, and diabetes arriving via EMS for slurred speech today. The patient was admitted to this hospital last December for similar symptoms and diagnosed with a lacunar infarct. She followed up with Dr. Chaudhari, neurologist, for the CVA and was placed on daily Aspirin. Today she had a 15-30 minute episode of slurred speech. This concerned her as this included similar symptoms to when she was last admitted. Currently she feels like she is back at her baseline. No fever, headache, body aches, lightheadedness, chest pain, heart palpitations, shortness of breath, cough, abdominal pain, urinary or bowel complaints, numbness, paresthesias. REVIEW OF SYSTEMS: A comprehensive 10 system review of systems is otherwise negative aside from elements mentioned in the history of present illness and medical decision making. PHYSICAL EXAM: HR, BP, O2 Sat, RR. Temp noted General Appearance: Alert, well hydrated, appropriate, and non-toxic appearing. Head: Atraumatic without scalp tenderness or obvious injury Eyes: Pupils equal, round, reactive to light and accommodation, EOMI, no trauma , no injection. Ears: Clear bilaterally, no perforation, normal landmarks Nose: Atraumatic, no rhinorrhea, clear. Throat: There is no erythema or exudates, no lesions, normal tonsils, mucus membranes moist. Neck: Supple, 2+ carotid upstroke, nontender, no lymphadenopathy. Respiratory: No retractions, no distress, no wheezes, and no accessory muscle use. Lungs are clear to auscultation bilaterally. Cardiovascular: Mildly tachycardic, no murmurs, rubs, or gallops. Bilateral carotid, radial, dorsalis pedis, and posterior tibial pulses intact. Good capillary refill all extremities. Gastrointestinal: Abdomen is soft, nontender, non-distended, no masses, no rebound, no guarding, no peritoneal signs. Musculoskeletal: Normal active ROM of all extremities, atraumatic. Neurological: Alert, appropriate, and interactive. The patient has normal DTRs and non-focal cranial nerves, motor, sensory, and cerebellar exam. Skin: No rashes, good turgor, no nodules on palpation. Past medical history: Stroke, diabetes, gastroparesis, hyperlipidemia Past surgical history: Pacemaker Family history: Denies Social history: Resides at [facility], retired, does not abuse drugs or alcohol DIAGNOSTICS/PROCEDURES/CRITICAL CARE TIME: Head CT: No acute findings. No signs of a bleed. EKG: The 12 lead EKG was interpreted by myself as sinus tachycardia with a rate of 101. See hard copy and/or "tracemaster" electronic copy for interpretation. Head CTA: No acute findings. Neck CTA: No acute findings. DIFFERENTIAL DIAGNOSIS: The differential diagnosis for the patient's neurologic deficits included but was not limited to transient Broca's aphasia, peripheral causes, central causes including CVA, TIA, electrolyte abnormalities and dehydration, cardiogenic causes, atypical causes like migraine syndrome. MEDICAL DECISION MAKING: The patient is a 72 y/o female with a history of a CVA with right-sided weakness and dysarthria, pacemaker, and diabetes arriving via EMS for a 15-30 minute resolved episode of slurred speech today. The patient was admitted to this hospital last December for similar symptoms and diagnosed with a lacunar infarct. She did have normal head and neck CTA findings in December. She followed up with Dr. Chaudhari, neurologist, for the CVA and was placed on daily Aspirin. Currently she has a normal exam including a normal neurological exam. I am unable to order an MRI as she has a pacemaker. Labs, EKG and head CT ordered. 1455: I consulted with the hospitalist service regarding this patient. 1511: I reviewed patient's EKG which reveals sinus tachycardia with a rate of 101. Head CT imaging pending. 1540: I spoke with Dr. Menon, radiologist, who reports there are no acute findings. Patient's labs are also unremarkable. 1603: I consulted with Dr. Cordova, neurologist, regarding this patient. He would like this patient to have additional imaging studies including a head and neck CTA, which I have ordered. He would also like the patient to go off of Aspirin and on Plavix for 21 days per new protocol. This patient will also need cardiology follow up for a Halter monitor. 1740: I spoke with Dr. Garcia, radiologist, who reports there are no significant findings on the patient's CTA's. She is safe to be discharged home with plan for Plavix and follow up with her neurologist. Her first dose of Plavix will be given prior to discharge. 1750: Reassessed patient and discussed imaging findings. I have advised her to follow up with her neurologist and a clockmaker. I have also advised her to stop taking Aspirin and to take Plavix as prescribed for 21 days. Return precautions provided; patient is comfortable with this plan. - Data Points Laboratory Results: Laboratory Results 08/30/18 16:45 08/30/18 14:38 08/30/18 08/30/18 08/30/18 16:45 14:50 14:38 WBC 10.44 10^3/uL H 10^3/uL (3.80-9.50) RBC 4.73 10^6/uL 10^6/uL (4.18-5.33) Hgb 13.6 g/dL g/dL (12.6-16.3) Hct 41.8 % % (38.0-47.0) MCV 88.4 fL fL (81.5-99.8) MCH 28.8 pg pg (27.9-34.1) MCHC 32.5 g/dL g/dL (32.4-36.7) RDW 14.6 % % (11.5-15.2) Plt Count 258 10^3/uL 10^3/uL (150-400) MPV 10.3 fL fL (8.7-11.7) Neut % (Auto) 69.7 % % (39.3-74.2) Lymph % (Auto) 19.8 % % (15.0-45.0) Hodgeman % (Auto) 8.7 % % (4.5-13.0) Eos % (Auto) 1.1 % % (0.6-7.6) Baso % (Auto) 0.3 % % (0.3-1.7) Nucleat RBC Rel Count 0.0 % % (0.0-0.2) Absolute Neuts (auto) 7.28 10^3/uL H 10^3/uL (1.70-6.50) Absolute Lymphs (auto) 2.07 10^3/uL 10^3/uL (1.00-3.00) Absolute Monos (auto) 0.91 10^3/uL H 10^3/uL (0.30-0.80) Absolute Eos (auto) 0.11 10^3/uL 10^3/uL (0.03-0.40) Absolute Basos (auto) 0.03 10^3/uL 10^3/uL (0.02-0.10) Absolute Nucleated RBC 0.00 10^3/uL 10^3/uL (0-0.01) Immature Gran % 0.4 % % (0.0-1.1) Immature Gran # 0.04 10^3/uL 10^3/uL (0.00-0.10) Sodium 135 mEq/L mEq/L (135-145) Potassium 4.9 mEq/L mEq/L (3.5-5.2) Chloride 101 mEq/L mEq/L (97-110) Carbon Dioxide 20 mEq/l L mEq/l (22-31) Anion Gap 14 mEq/L mEq/L (6-14) BUN 28 mg/dL H mg/dL (7-23) Creatinine 1.2 mg/dL H mg/dL (0.6-1.0) Estimated GFR 44 Glucose 297 mg/dL H mg/dL (70-100) Calcium 9.1 mg/dL mg/dL (8.5-10.4) POC Troponin I 0.00 ng/mL ng/mL (0.00-0.08) 08/30/18 14:38 WBC REJ RBC REJ Hgb REJ Hct REJ MCV REJ MCH REJ MCHC REJ RDW REJ Plt Count REJ MPV REJ Neut % (Auto) REJ Lymph % (Auto) REJ Hodgeman % (Auto) REJ Eos % (Auto) REJ Baso % (Auto) REJ Nucleat RBC Rel Count REJ Absolute Neuts (auto) REJ Absolute Lymphs (auto) REJ Absolute Monos (auto) REJ Absolute Eos (auto) REJ Absolute Basos (auto) REJ Absolute Nucleated RBC REJ Immature Gran % REJ Immature Gran # REJ Sodium Potassium Chloride Carbon Dioxide Anion Gap BUN Creatinine Estimated GFR Glucose Calcium POC Troponin I Medications Given: Discontinued Medications Acetaminophen (Tylenol) 650 mg PO EDNOW ONE Stop: 08/30/18 17:55 Last Admin: 08/30/18 17:55 Dose: 650 mg Clopidogrel Bisulfate (Plavix) 75 mg PO EDNOW ONE Stop: 08/30/18 17:43 Last Admin: 08/30/18 17:48 Dose: 75 mg Point of Care Test Results: Chemistry 08/30/18 14:50 POC Troponin I 0.00 ng/mL ng/mL (0.00-0.08) Departure - Departure Disposition: Home, Routine, Self-Care Clinical Impression: transient broca's aphasia, Broca's aphasia, TIA (transient ischemic attack) Condition: Good Instructions: Transient Ischemic Attack (ED), Aphasia (DC) Additional Instructions: 1. Stop taking Aspirin for 21 days. 2. Take Plavix as prescribed for 21 days. 3. Follow up with your neurologist within 2 days. 4. Follow up with a clockmaker to be fitted for a Halter monitor. 5. Return to the Emergency Department for severe headache, vomiting, vision changes, confusion, fever or other concerns Referrals: Yobany Chaudhari MD [[facility] Primary Care Provider] - As per Instructions John Hazel MD [Medical Doctor] - As per Instructions Prescriptions: Clopidogrel Bisulfate [Plavix (*)] 75 mg PO DAILY #20 tab Report Scribed for: Mauri Parry Report Scribed by: Suad Jean Baptiste Date of Report: 08/30/18 Time of Report: 14:40
[2018-08-30] MEDS ORDERED: IOPAMIDOL (ISOVUE 370) 100 ML BTL IV ONE (16:47)
[2018-08-30 16:57] LABS: PLATELET COUNT 258 10^3/uL (150-400)
[2018-08-30 17:23] VITALS: BP 161/94
[2018-08-30] MEDS ORDERED: CLOPIDOGREL BISULFATE 75 MG TAB PO ONE (17:42)
[2018-08-30] MEDS ORDERED: ACETAMINOPHEN 325 MG TAB PO ONE (17:54)
--- NOTE | 2018-08-30 20:44 | CPEKG ---
Test Reason : OPEN Blood Pressure : / mmHG Vent. Rate : 101 BPM Atrial Rate : 101 BPM P-R Int : 159 ms QRS Dur : 123 ms QT Int : 382 ms P-R-T Axes : 060 086 036 degrees QTc Int : 496 ms Sinus tachycardia IVCD, consider atypical RBBB Confirmed by Mauri Parry ([id number]) on 08/30/2018 8:43:50 PM Referred By: Mauri Parry Confirmed By:Mauri Parry
== END 2018-08-30 18:04 | disposition home or self-care (01) ==
LOC: EDUNIT#
DX: R47.01 Aphasia (principal); G45.9 Transient cerebral ischemic attack, unspecified; I10 Essential (primary) hypertension; E11.9 Type 2 diabetes mellitus without complications; E78.5 Hyperlipidemia, unspecified; Z79.4 Long term (current) use of insulin; Z95.0 Presence of cardiac pacemaker
CPT/HCPCS: 70450; 70496; 70498; 93005; 99285; Q9967; 84484-ER

== ENCOUNTER 2018-10-04 12:52 | Inpatient (IN) | payer OTHER ==
--- NOTE | 2018-10-04 12:59 | EDPHY ---
H & P Time Seen by Provider: 10/04/18 12:55 HPI/ROS: CHIEF COMPLAINT: Expressive aphasia HISTORY OF PRESENT ILLNESS: 73-year-old female with diabetes and prior TIAs presents as a stroke alert with expressive aphasia. Sudden onset of expressive aphasia at 11:00 a.m., associated with right facial droop. On EMS arrival, she was unable to answer questions appropriately. The words were clear, but incorrect. Associated with a right facial droop. The symptoms have almost completely resolved now. She is on aspirin and Plavix. Complains of a moderate headache as well. 2-3 week history of exertional shortness of breath, without chest pain or URI symptoms. No recent trauma to the head or neck. REVIEW OF SYSTEMS: complete 10 point ROS reviewed and is negative except for the noted elements in the HPI - Medical/Surgical History Hx Asthma: No Hx Chronic Respiratory Disease: No Hx Diabetes: Yes Hx Cardiac Disease: No Hx Renal Disease: No Hx Cirrhosis: No Hx Alcoholism: No Hx HIV/AIDS: No Hx Splenectomy or Spleen Trauma: No Other PMH: Hypertension, high cholesterol, DIABETES complicated by gastroparesis , R foot all toes amputated, L foot 2nd toe amputated, left eye blindness since , pacemaker, complete heart block, hypothyroidism - Social History Smoking Status: Never smoked Alcohol Use: Sober Drug Use: None - Physical Exam Exam: General Appearance: Alert, pleasant, speech is clear and fluent Eyes: Pupils equal and round, no conjunctival pallor or injection ENT, Mouth: Mucous membranes moist, symmetric smile Neck: Normal inspection Respiratory: Rales at bases Cardiovascular: Regular rate and rhythm Gastrointestinal: Abdomen is soft and nontender Neurological: Alert, oriented x3, cranial nerves II through XII intact, motor 5 /5, sensory grossly intact, gait not assessed Skin: Warm and dry Extremities: Trace bilateral pedal edema Psychiatric: Mood and affect normal Constitutional: Initial Vital Signs Temperature (C) 37 C 10/04/18 13:04 Heart Rate 95 10/04/18 13:04 Respiratory Rate 20 10/04/18 13:04 Blood Pressure 139/78 H 10/04/18 13:04 O2 Sat (%) 96 10/04/18 13:04 O2 Delivery Mode Nasal Cannula O2 (L/minute) 2 Allergies/Adverse Reactions: atorvastatin Allergy (Mild, Verified 10/04/18 16:29) HEADACHE diphenhydramine Allergy (Unknown, Verified 10/04/18 13:11) divalproex sodium Allergy (Unknown, Verified 10/04/18 13:11) venlafaxine Allergy (Unknown, Verified 10/04/18 13:11) desvenlafaxine Allergy (Verified 10/04/18 13:11) mushroom Allergy (Verified 10/04/18 13:11) metaclopramide Allergy (Uncoded 08/30/18 14:51) products containing shellfish Allergy (Uncoded 08/30/18 14:51) Home Medications: Medication Instructions Recorded DULoxetine [Cymbalta 60 MG (*)] 60 mg PO DAILY 03/23/17 Levothyroxine [Synthroid 50 mcg 50 mcg PO DAILY06 03/23/17 (*)] Loperamide HCl [Imodium 2 mg (*)] 2 mg PO PRN PRN 03/23/17 Ondansetron HCl [Zofran] 4 mg PO Q6 PRN 03/23/17 Pantoprazole Sodium [Protonix 40mg 40 mg PO HS 03/23/17 (*)] Pregabalin [Lyrica 50mg (*)] 50 mg PO BID 03/23/17 Insulin Glargine,Hum.rec.anlog 40 unit SQ DAILY 04/22/17 [Lantus Solostar] Acetaminophen [Tylenol 325mg (*)] 650 mg PO Q4HRS PRN tab 04/24/17 Fenofibrate 54 mg PO DAILY 01/26/18 Insulin Lispro [Humalog Kwikpen 20 unit SQ 1000,1400 01/26/18 U-100] Aspirin EC [Aspirin EC 81 mg (*)] 81 mg PO DAILY 10/04/18 Cholecalciferol Vit D3 [Vitamin D3 2,000 units PO HS 10/04/18 2000 units tab (OTC)] Clopidogrel Bisulfate [Plavix (*)] 75 mg PO DAILY18 10/04/18 Diclofenac Sodium 1% [Voltaren Gel 2 gm TP Q4HRS PRN 10/04/18 (*)] Ezetimibe [Zetia 10 MG (*)] 10 mg PO DAILY 10/04/18 Insulin Glargine,Hum.rec.anlog 25 unit SQ HS 10/04/18 [Lantus Solostar] Insulin Lispro [Humalog] 15 unit SQ DAILY@20 10/04/18 Melatonin [Melatonin 3 MG (*)] 3 mg PO HS 10/04/18 Sennosides/Docusate Sodium 1 each PO BID PRN 10/04/18 [Senokot-S (OTC)] Medical Decision Making - Diagnostics EKG Interpretation: EKG interpreted by me reveals normal sinus rhythm, rate 95, IVCD, poor R-wave progression. Interpretation: Abnormal EKG Imaging Results: Imaging Impressions Head CT 10/04/18 12:56 Impression: 1. Lacunar infarct, at left internal capsule laterally, slightly increased from August 30, 2018, but still at least several weeks old. 2. No acute intracranial hemorrhage or mass or evidence for stroke. Findings and recommendations discussed with Dr. Sarahy Bradford at 1:05 PM, 2018. Final report concurs with initial preliminary interpretation. Chest X-Ray 10/04/18 13:21 Impression: Stable negative chest. Imaging: Discussed imaging studies w/ call person Radiologist ED Course/Re-evaluation: Patient presents as a stroke alert with express rib if he gin and right facial droop. I met this patient in the hallway and my brief neurologic exam was normal. She was sent directly for noncontrast CT scan. Will reassess when she returns from CT. 13 15: CT scan of the brain is unremarkable. Results discussed with the patient. Repeat neurologic exam is normal and unchanged. NIH stroke score is 0. Presentation c/w TIA. TPA not indicated. She took Plavix and aspirin in the last 24 hr. Tylenol given for SAMAYOA. The hospitalist service was consulted for admission. Differential Diagnosis: Altered mental status including but not limited to hypoglycemia, infectious process, electrolyte abnormality, head injury, CVA, and intoxicants. - Data Points Laboratory Results: Laboratory Results 10/04/18 12:50 10/04/18 12:50 10/04/18 10/04/18 10/04/18 13:00 12:57 12:50 WBC RBC Hgb POC Hgb 15.0 gm/dL gm/dL (12.6-16.3) Hct POC Hct 44 % % (38-47) MCV MCH MCHC RDW Plt Count MPV Neut % (Auto) Lymph % (Auto) Brown % (Auto) Eos % (Auto) Baso % (Auto) Nucleat RBC Rel Count Absolute Neuts (auto) Absolute Lymphs (auto) Absolute Monos (auto) Absolute Eos (auto) Absolute Basos (auto) Absolute Nucleated RBC Immature Gran % Immature Gran # POC Sodium 139 mEq/L mEq/L (135-145) Sodium 136 mEq/L mEq/L (135-145) POC Potassium 4.1 mEq/L mEq/L (3.3-5.0) Potassium 4.3 mEq/L mEq/L (3.5-5.2) POC Chloride 101 mEq/L mEq/L (97-110) Chloride 102 mEq/L mEq/L (97-110) Carbon Dioxide 24 mEq/l mEq/l (22-31) POC Total CO2 23 mEq/L mEq/L (22-31) Anion Gap 10 mEq/L mEq/L (6-14) POC BUN 22 mg/dL mg/dL (7-23) BUN 22 mg/dL mg/dL (7-23) Creatinine 1.0 mg/dL mg/dL (0.6-1.0) POC Creatinine 1.0 mg/dL mg/dL (0.6-1.0) Estimated GFR 55 Glucose 306 mg/dL H mg/dL (70-100) POC Glucose 316 mg/dL H mg/dL (70-100) Calcium 9.3 mg/dL mg/dL (8.5-10.4) POC Troponin I 0.00 ng/mL ng/mL (0.00-0.08) 10/04/18 12:50 WBC 7.12 10^3/uL 10^3/uL (3.80-9.50) RBC 4.88 10^6/uL 10^6/uL (4.18-5.33) Hgb 13.8 g/dL g/dL (12.6-16.3) POC Hgb Hct 42.9 % % (38.0-47.0) POC Hct MCV 87.9 fL fL (81.5-99.8) MCH 28.3 pg pg (27.9-34.1) MCHC 32.2 g/dL L g/dL (32.4-36.7) RDW 14.7 % % (11.5-15.2) Plt Count 253 10^3/uL 10^3/uL (150-400) MPV 9.9 fL fL (8.7-11.7) Neut % (Auto) 63.7 % % (39.3-74.2) Lymph % (Auto) 23.0 % % (15.0-45.0) Brown % (Auto) 10.4 % % (4.5-13.0) Eos % (Auto) 1.7 % % (0.6-7.6) Baso % (Auto) 0.6 % % (0.3-1.7) Nucleat RBC Rel Count 0.0 % % (0.0-0.2) Absolute Neuts (auto) 4.54 10^3/uL 10^3/uL (1.70-6.50) Absolute Lymphs (auto) 1.64 10^3/uL 10^3/uL (1.00-3.00) Absolute Monos (auto) 0.74 10^3/uL 10^3/uL (0.30-0.80) Absolute Eos (auto) 0.12 10^3/uL 10^3/uL (0.03-0.40) Absolute Basos (auto) 0.04 10^3/uL 10^3/uL (0.02-0.10) Absolute Nucleated RBC 0.00 10^3/uL 10^3/uL (0-0.01) Immature Gran % 0.6 % % (0.0-1.1) Immature Gran # 0.04 10^3/uL 10^3/uL (0.00-0.10) POC Sodium Sodium POC Potassium Potassium POC Chloride Chloride Carbon Dioxide POC Total CO2 Anion Gap POC BUN BUN Creatinine POC Creatinine Estimated GFR Glucose POC Glucose Calcium POC Troponin I Medications Given: Clopidogrel Bisulfate (Plavix) 75 mg PO DAILY18 [facility] Stop: 04/02/19 17:59 Last Admin: 10/04/18 17:57 Dose: 75 mg Insulin Human Lispro (Humalog Lispro) 0 unit SC TIDMEAL [facility] PRN Reason: Protocol Stop: 04/02/19 17:59 Last Admin: 10/04/18 17:55 Dose: 4 units Discontinued Medications Acetaminophen (Tylenol) 650 mg PO EDNOW ONE Stop: 10/04/18 13:23 Last Admin: 10/04/18 13:43 Dose: 650 mg Point of Care Test Results: Chemistry 10/04/18 10/04/18 13:00 12:57 POC Sodium 139 mEq/L mEq/L (135-145) POC Potassium 4.1 mEq/L mEq/L (3.3-5.0) POC Chloride 101 mEq/L mEq/L (97-110) POC Total CO2 23 mEq/L mEq/L (22-31) POC BUN 22 mg/dL mg/dL (7-23) POC Creatinine 1.0 mg/dL mg/dL (0.6-1.0) POC Glucose 316 mg/dL H mg/dL (70-100) POC Troponin I 0.00 ng/mL ng/mL (0.00-0.08) ISTAT H&H 10/04/18 12:57 POC Hgb 15.0 gm/dL gm/dL (12.6-16.3) POC Hct 44 % % (38-47) Departure - Departure Disposition: [facility] Inpatient Acute Clinical Impression: Transient cerebral ischemia Qualifiers: Transient cerebral ischemia type: unspecified Qualified Code(s): G45.9 - Transient cerebral ischemic attack, unspecified Condition: Fair
[2018-10-04 13:08] LABS: PLATELET COUNT 253 10^3/uL (150-400)
[2018-10-04] MEDS ORDERED: ACETAMINOPHEN 325 MG TAB PO ONE (13:22)
[2018-10-04] MEDS ORDERED: ONDANSETRON 4 MG/2 ML VIAL IVP PRN (14:40)
[2018-10-04] MEDS ORDERED: PROMETHAZINE HCL 25 MG/ML INJ IVP PRN (15:20)
[2018-10-04] MEDS ORDERED: D50W 25 GM/50 ML SYR IVP PRN (15:30)
[2018-10-04] MEDS ORDERED: ONDANSETRON DISINTEGRATING 4 MG TAB PO PRN (15:42)
--- NOTE | 2018-10-04 15:50 | PDGENHP ---
History and Physical - Chief Complaint Stroke Alert - History of Present Illness 73 y/o w/hx of CVA, hypothyroidism, CHB s/p PPM, HTN, HLD, and DM2 presenting as a stroke alert w/expressive asphasia and right sided facial droop. Occurred at 11:00am. EMS arrived and she was unable to answer questions appropriately w/ the words being clear but not appropriate. Symptoms have resolved, imaging unremarkable, c/o moderate frontal headache and 2-3 weeks worth of exertional shortness of breath. She is on DAPT. Hx: She presented to our ED on 08/30/18 w/ slurred speech and before that in December 2017 w/lacunar infarct. Head/Neck CTA was performed in August 2018 w/no significant findings. She f/u w/neurologist, Dr. Chaudhari, and she was asked to stop ASA and start Plavix for 21 days but since that time, continues DAPT. History Information - Allergies/Home Medication List Allergies/Adverse Reactions: atorvastatin Allergy (Mild, Verified 10/04/18 16:29) HEADACHE diphenhydramine Allergy (Unknown, Verified 10/04/18 13:11) divalproex sodium Allergy (Unknown, Verified 10/04/18 13:11) venlafaxine Allergy (Unknown, Verified 10/04/18 13:11) desvenlafaxine Allergy (Verified 10/04/18 13:11) mushroom Allergy (Verified 10/04/18 13:11) metaclopramide Allergy (Uncoded 08/30/18 14:51) products containing shellfish Allergy (Uncoded 08/30/18 14:51) Home Medications: DULoxetine [Cymbalta 60 MG (*)] 60 mg PO DAILY 03/23/17 [Last Taken 01/26/18] Levothyroxine [Synthroid 50 mcg (*)] 50 mcg PO DAILY06 03/23/17 [Last Taken ] Loperamide HCl [Imodium 2 mg (*)] 2 mg PO PRN 03/23/17 [Last Taken 03/30/17] Ondansetron HCl [Zofran] 4 mg PO Q6 PRN 03/23/17 [Last Taken 04/22/17 04:00] Pantoprazole Sodium [Protonix 40mg (*)] 40 mg PO HS 03/23/17 [Last Taken ] Pregabalin [Lyrica 50mg (*)] 50 mg PO BID 03/23/17 [Last Taken 01/26/18 am dose] Insulin Glargine,Hum.rec.anlog [Lantus Solostar] 44 unit SQ DAILY 04/22/17 [ Last Taken 04/21/17] Fenofibrate 54 mg PO DAILY 01/26/18 [Last Taken 01/26/18] Insulin Lispro [Humalog Kwikpen U-100] 20 unit SQ TIDMEAL 01/26/18 [Last Taken 01/26/18] Aspirin EC [Aspirin EC 81 mg (*)] 81 mg PO DAILY 10/04/18 [Last Taken 10/04/18] Cholecalciferol Vit D3 [Vitamin D3 2000 units tab (OTC)] 2,000 units PO HS 10/04 [Last Taken Unknown] Clopidogrel Bisulfate [Plavix (*)] 75 mg PO DAILY18 10/04/18 [Last Taken ] Diclofenac Sodium 1% [Voltaren Gel (*)] 2 gm TP Q4HRS PRN 10/04/18 [Last Taken Unknown] Ezetimibe [Zetia 10 MG (*)] 10 mg PO DAILY 10/04/18 [Last Taken Unknown] Insulin Glargine,Hum.rec.anlog [Lantus Solostar] 25 unit SQ HS 10/04/18 [Last Taken Unknown] Insulin Lispro [Humalog] 15 unit SQ DAILY@20 10/04/18 [Last Taken Unknown] Melatonin [Melatonin 3 MG (*)] 3 mg PO HS 10/04/18 [Last Taken Unknown] Sennosides/Docusate Sodium [Senokot-S (OTC)] 1 each PO BID PRN 10/04/18 [Last Taken Unknown] I have personally reviewed and updated: family history, medical history, social history, surgical history - Past Medical History CVA, hypertension, hyperlipidemia, TIA Additional medical history: Diabetes complicated by gastroparesis. Hypertension. Hyperlipidemia. Congenital left eye blindness. Complete heart block. Hypothyroidism. Idiopathic pancreatitis - Surgical History Additional surgical history: Permanent pacemaker. Right foot surgery - Family History Additional family history: No family history of stroke, she has a sibling with end-stage renal disease - Social History Smoking Status: Never smoked Alcohol Use: Sober Drug Use: None Additional social history: Patient reports assisted-living at [facility] Review of Systems Review of Systems: ROS: 10pt was reviewed & negative except for what was stated in HPI & below Physical Exam Physical Exam: Lab data and imaging were reviewed. WBC: 7.12 H/H: 13.8/42.9 Plt Count: 253 Na: 139 K: 4.3 Cl: 102 Co2: 24 BUN/Cr: 22/1.0 Troponin: 0.00 EKG: SR CXR: Stable negative chest. Head CT WO contrast: No acute intracranial hemorrhage or mass or evidence for stroke. Lacunar infarct at left internal capsule laterally, slightly increased from August 30, 2018 but still at least weeks old. Temp Pulse Resp BP Pulse Ox 37.0 C 90 24 H 154/91 H 90 L 10/04/18 15:32 10/04/18 15:32 10/04/18 15:32 10/04/18 15:32 10/04/18 15:32 O2 (L/minute) 4 Constitutional: obese, uncomfortable Eyes: PERRL, anicteric sclera, EOMI Ears, Nose, Mouth, Throat: moist mucous membranes, hearing normal, ears appear normal, no oral mucosal ulcers Cardiovascular: regular rate and rhythym, no murmur, rub, or gallop, tachycardia , No edema Peripheral Pulses: 2+: dorsalis-pedis (R), dorsalis-pedis (L) Respiratory: no respiratory distress, no rales or rhonchi, clear to auscultation Gastrointestinal: normoactive bowel sounds, soft, non-tender abdomen, no palpable masses Genitourinary: no bladder fullness, no bladder tenderness Skin: warm, normal color, no rashes or abrasions, no fluctuance, no induration, No mottled Musculoskeletal: full muscle strength, no muscle tenderness, normal joint ROM, no joint effusions Neurologic: AAOx3, sensation intact bilaterally, CN II-XII Intact Psychiatric: interacting appropriately, not anxious, not encephalopathic, thought process linear Lymph, Heme, Immunologic: no cervical LAD, no supraclavicular LAD Lab Data & Imaging Review 10/04/18 12:50 10/04/18 12:50 WBC 7.12 10^3/uL (3.80-9.50) 10/04/18 12:50 RBC 4.88 10^6/uL (4.18-5.33) 10/04/18 12:50 Hgb 13.8 g/dL (12.6-16.3) 10/04/18 12:50 POC Hgb 15.0 gm/dL (12.6-16.3) 10/04/18 12:57 Hct 42.9 % (38.0-47.0) 10/04/18 12:50 POC Hct 44 % (38-47) 10/04/18 12:57 MCV 87.9 fL (81.5-99.8) 10/04/18 12:50 MCH 28.3 pg (27.9-34.1) 10/04/18 12:50 MCHC 32.2 g/dL (32.4-36.7) L 10/04/18 12:50 RDW 14.7 % (11.5-15.2) 10/04/18 12:50 Plt Count 253 10^3/uL (150-400) 10/04/18 12:50 MPV 9.9 fL (8.7-11.7) 10/04/18 12:50 Neut % (Auto) 63.7 % (39.3-74.2) 10/04/18 12:50 Lymph % (Auto) 23.0 % (15.0-45.0) 10/04/18 12:50 [place] % (Auto) 10.4 % (4.5-13.0) 10/04/18 12:50 Eos % (Auto) 1.7 % (0.6-7.6) 10/04/18 12:50 Baso % (Auto) 0.6 % (0.3-1.7) 10/04/18 12:50 Nucleat RBC Rel Count 0.0 % (0.0-0.2) 10/04/18 12:50 Absolute Neuts (auto) 4.54 10^3/uL (1.70-6.50) 10/04/18 12:50 Absolute Lymphs (auto) 1.64 10^3/uL (1.00-3.00) 10/04/18 12:50 Absolute Monos (auto) 0.74 10^3/uL (0.30-0.80) 10/04/18 12:50 Absolute Eos (auto) 0.12 10^3/uL (0.03-0.40) 10/04/18 12:50 Absolute Basos (auto) 0.04 10^3/uL (0.02-0.10) 10/04/18 12:50 Absolute Nucleated RBC 0.00 10^3/uL (0-0.01) 10/04/18 12:50 Immature Gran % 0.6 % (0.0-1.1) 10/04/18 12:50 Immature Gran # 0.04 10^3/uL (0.00-0.10) 10/04/18 12:50 POC Sodium 139 mEq/L (135-145) 10/04/18 12:57 Sodium 136 mEq/L (135-145) 10/04/18 12:50 POC Potassium 4.1 mEq/L (3.3-5.0) 10/04/18 12:57 Potassium 4.3 mEq/L (3.5-5.2) 10/04/18 12:50 POC Chloride 101 mEq/L (97-110) 10/04/18 12:57 Chloride 102 mEq/L (97-110) 10/04/18 12:50 Carbon Dioxide 24 mEq/l (22-31) 10/04/18 12:50 POC Total CO2 23 mEq/L (22-31) 10/04/18 12:57 Anion Gap 10 mEq/L (6-14) 10/04/18 12:50 POC BUN 22 mg/dL (7-23) 10/04/18 12:57 BUN 22 mg/dL (7-23) 10/04/18 12:50 Creatinine 1.0 mg/dL (0.6-1.0) 10/04/18 12:50 POC Creatinine 1.0 mg/dL (0.6-1.0) 10/04/18 12:57 Estimated GFR 55 10/04/18 12:50 Glucose 306 mg/dL (70-100) H 10/04/18 12:50 POC Glucose 316 mg/dL (70-100) H 10/04/18 12:57 Calcium 9.3 mg/dL (8.5-10.4) 10/04/18 12:50 POC Troponin I 0.00 ng/mL (0.00-0.08) 10/04/18 13:00 Assessment & Plan Plan: 73 y/o w/hx of CVA, hypothyroidism, HTN, HLD, CHB s/p PPM, and DM 2 presents as a stroke alert w/expressive asphasia and right facial droop which has since resolved. C/o SAMAYOA and weeks worth of exertional SOB. Vital signs are the following: BP 120/79, HR 94, Resp 24, Temp 36.3, and 90 % 2L NC. #TIA -Neurology consulted; continue DAPT -Cont tele monitoring -Lipid panel in AM; initiated pravastatin (per pt, statin allergy is SAMAYOA) -Unable to perform MRI d/t pacemaker -Echo w/bubbler in AM -Head/Neck CTA w/o significant findings August 2018 -Permissive HTN -Stroke order placed including PT/OT/PAINTING MANAGER to evaluate and treat #Headache: Tylenol PRN #Nausea: Anti-emetics PRN #Exertional SOB: Denies recent illness. 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 It is unclear if this is a form of deconditioning, she denies any other associated symptoms w/SOB. -Checking d-dimer; if significantly elevated, will get chest CTA to r/o PE however it is unlikely w/current tx of DAPT -PT/OT to evaluate and treat #Complete heart block -Spoke to both Dr. Nelson and LINDA Quiroga; PPM was interrogated and no events were noted -Echo in AM -Cont tele #DM2: A1c was 10.7% September 16, 2018. -ISS in house, glucose checks TID before meals -Cont long-acting home insulin #Hypothyroidism -Checking TSH -Cont L4T Diet: Carb-controlled once passes RN swallow eval Code: Full VTE ppx: SCDs Dispo: Admit to obs
[2018-10-04] MEDS ORDERED: SENNOSIDES/DOCUSATE SODIUM TAB PO PRN (17:05)
[2018-10-04] MEDS: INSULIN LISPRO 100 UNIT/ML SC SCH (17:55)
[2018-10-04] MEDS: CLOPIDOGREL BISULFATE 75 MG TAB PO SCH (17:57)
--- NOTE | 2018-10-04 21:08 | CPEKG ---
Test Reason : OPEN Blood Pressure : / mmHG Vent. Rate : 095 BPM Atrial Rate : 095 BPM P-R Int : 185 ms QRS Dur : 133 ms QT Int : 408 ms P-R-T Axes : 067 097 -04 degrees QTc Int : 513 ms Sinus rhythm Nonspecific intraventricular conduction delay poor R wave progression Confirmed by Sarahy Bradford ([id number]) on 10/04/2018 9:08:08 PM Referred By: Sarahy Bradford Confirmed By:Sarahy Bradford
[2018-10-04] MEDS: ACETAMINOPHEN 325 MG TAB PO PRN (21:17)
[2018-10-04] MEDS: PANTOPRAZOLE SODIUM 40 MG TAB PO SCH (21:17)
[2018-10-04] MEDS: PREGABALIN 50 MG CAP PO SCH (21:17)
[2018-10-04] MEDS: CHOLECALCIFEROL VIT D3 2,000 UNITS TAB/CAP PO SCH (21:18)
[2018-10-04] MEDS: INSULIN GLARGINE 100 UNITS/ML UNIT SC SCH (21:23)
--- NOTE | 2018-10-04 22:40 | GHP ---
[f rep st] HISTORY AND PHYSICAL DATE OF ADMISSION: 10/04/2018 CHIEF COMPLAINT: Right-sided facial droop and difficulty with speech. HISTORY OF PRESENT ILLNESS: Ms Weston is a 73-year-old female with a past medical history of prior CV As, hypertension, and diabetes mellitus type 2, who presented to the [facility] Emerg ency Room on 10/04/2018, after developing expressive aphasia and right-sided facial droop. Symptoms l argely resolved in the emergency room. She is admitted for further evaluation. She had a recent str javid workup 1 month ago here at [facility]. She had evidence of an old CVA on the CT of her head. She has a pacemaker prohibiting the ability to obtain an MRI. For past medical history, past surgical history, medications, allergies, family history, social histo ry, and review of systems, please refer to notations by Arleth Carter MD. PHYSICAL EXAMINATION: VITAL SIGNS: Temperature 36.3, blood pressure 120/79, heart rate 94, respirat ions 25, saturating 90% on 2 L nasal cannula. GENERAL: Patient was awake and alert and conversant. HEENT: Extraocular movements appear intact. No scleral icterus. NECK: Supple. No carotid bruit appreciated. CHEST: Clear to auscultation. HEART: Regular rate and rhythm. No murmurs. ABDOMEN: Soft, nontender. Normal bowel sounds. : No Bran catheter in place. EXTREMITIES: No significa nt pitting edema, but trace bilaterally. NEUROLOGIC: Suspected a mild right-sided facial droop. Sh e did have some difficulty with word finding. Strength of upper and lower extremities seemed diminis hed but equal on both sides. ASSESSMENT AND PLAN: Transient ischemic attack. Patient is already on dual-antiplatelet therapy. S he apparently has a listed allergy to atorvastatin. I think considering the recurrent nature of her neurologic symptoms it may be reasonable to retry statin therapy and she has been placed on pravastat in to see if she develops any adverse affects. Otherwise she had a recent CTA of her head and neck. Echocardiogram ordered for tomorrow morning along with neurologic consultation. Otherwise I agree w ith the assessment and plan as detailed by Arleth Carter MD. /[id number]/MODL
[2018-10-05] MEDS: ACETAMINOPHEN 325 MG TAB PO PRN (05:31)
[2018-10-05] MEDS: LEVOTHYROXINE 50 MCG TAB PO SCH (05:31)
--- NOTE | 2018-10-05 09:47 | NEUROPROG ---
Assessment: [id number] - Neurology Consult: - CC: Speech disturbance, right facial weakness - HPI: 10/05/18: Pt with prior left internal capsule lacunar infarct presented to [facility] with problems speaking and right sided facial droop (symptoms similar to prior stroke in 2018). Pt had glucose in 300s with H1AC of 10.6. Head CT showed no acute changes. Symptoms resolved in the ER. Pt had pacemaker so could not get MRI. Pt was on aspirin 81 mg qd and plavix 75 mg qd prior to admission. LDL was 121. Her neurologic exam showed stable left eye vision loss. Given pt with glucose in 300s and H1AC 10.6 I suspect she had an acute confusional state from this causing stroke resurvesence of old left internal capsule stroke to cause recurrence of prior stroke symptoms. Due to pacemaker I cannot obtain a brain MRI. However, TIA or small stroke is also possible so I would recommend echocardiogram and carotid U/S. If these are unremarkable then focus on good diabetic and cholesterol control. - PMHx: CVA, HTN, HLD, TIA, DM2, gastroparesis, congenital left eye blindness, heart block, hypothyroidism, idiopathic pancreatitis, pacemaker, R foot surgery - SHx: no tobacco FHx: renal disease - ROS: Pt denied acute fever, total vision loss, active severe chest pain, respiratory failure, total body severe rash, total bowel/bladder incontinence, psychosis, active seizures, or active bleeding - O: VS reviewed General: Alert Eyes: Fundoscopic exam not able to visualize optic disks CV: Heart RRR, no murmur, no carotid bruit Lungs: Clear to auscultation bilaterally, no rhonchi or rales Neuro: - Mental: . Oriented x person/place/date . concentration appears normal . speech fluency/comprehension normal . memory appears normal . fund of knowledge appear intact - Cranial Nerves: . II: Pupil normal in right eye, VFFTC on right eye (chronic left eye blindness) . III/IV/: EOMI, no nystagmus, normal smooth pursuits, no Ptosis . V: facial sensation intact to LT . VII: face symmetric to eye closure and smile . VIII: hearing intact to conversation . IX/X: uvula raises symmetrically . XI: SCM 5/5 B/L strength . XII: tongue protrudes midline w/nl strength - Motor: . Tone: normal tone in all 4 extremity . Strength: no pronator drift, strength 5/5 throughout (B/L delt, bic, tri, hand silk printer, hf/he, df/pf) - Reflexes: B/L bic 2/4 - Sensory: all 4 extremity intact to light touch - Coord: [id number] wnl, DOUG wnl, zgyc-la-ujuw wnl - Gait: deferred - Labs: 10/04/18- H1AC 10.6, glucose 316 10/05/18- LDL 121H - Rads: 10/04/18- Head CT wo: Lacunar infarct, at left internal capsule laterally, slightly increased from August 30, 2018, but still at least several weeks old. No acute intracranial hemorrhage or mass or evidence for stroke. (I Personally visualized the images on 10/05/18) - Assessment: 1. Transient right facial droop and speech disturbance: Given pt with glucose in 300s and H1AC 10.6 I suspect she had an acute confusional state from this causing stroke resurvesence of old left internal capsule stroke to cause recurrence of prior stroke symptoms. Due to pacemaker I cannot obtain a brain MRI. However, TIA or small stroke is also possible. - Plan: - Continue aspirin 81 mg qd and plavix 75 mg qd for stroke prevention - LDL goal < 70 (121), recommend statin to address this if pt can tolerate it - H1aC goal < 7.0 (10.6), this is likely cause of her symptoms, addressing this will lower stroke risk - Blood Pressure goal < 140/90 - TTE - Carotid U/S - Recommend pacemaker interrogation to ensure no afib - PT/OT/Speech to determine any rehab needs - Pt should f/u with her outpatient neurologist, Dr. Chaudhari, 1-6 weeks after hospital discharge Objective: Vital Signs Temp Pulse Resp BP Pulse Ox 36.8 C 90 16 137/83 H 90 L 10/05/18 07:33 10/05/18 07:33 10/05/18 07:33 10/05/18 07:33 10/05/18 07:33 Allergies/Adverse Reactions: atorvastatin Allergy (Mild, Verified 10/04/18 16:29) HEADACHE diphenhydramine Allergy (Unknown, Verified 10/04/18 13:11) divalproex sodium Allergy (Unknown, Verified 10/04/18 13:11) venlafaxine Allergy (Unknown, Verified 10/04/18 13:11) desvenlafaxine Allergy (Verified 10/04/18 13:11) mushroom Allergy (Verified 10/04/18 13:11) metaclopramide Allergy (Uncoded 08/30/18 14:51) products containing shellfish Allergy (Uncoded 08/30/18 14:51)
[2018-10-05] MEDS: DULoxetine 60 MG CAP PO SCH (09:50)
[2018-10-05] MEDS: PREGABALIN 50 MG CAP PO SCH ×2 (09:50→22:27)
[2018-10-05] MEDS: PRAVASTATIN SODIUM 40 MG TAB PO SCH (09:50)
[2018-10-05] MEDS: EZETIMIBE 10 MG TAB PO SCH (09:50)
[2018-10-05] MEDS: FENOFIBRATE 48 MG TAB PO SCH (09:50)
[2018-10-05] MEDS: ASPIRIN EC 81 MG TAB PO SCH (09:50)
[2018-10-05] MEDS: INSULIN GLARGINE 100 UNITS/ML UNIT SC SCH ×2 (09:51→22:32)
[2018-10-05] MEDS: INSULIN LISPRO 100 UNIT/ML SC SCH ×4 (13:05→20:41)
--- NOTE | 2018-10-05 13:26 | PDCARPN ---
Cardiology Progress Note Chief Complaint: Difficulty with speech Assessment/Plan: Assessment: Patient is a 73 y/o female, known to cardiology in the outpatient setting with CHB s/p PPM, DM, HTN, HLP, hypothyroidism, and TIA/CVA, who presents to [facility] ER with complaints of difficulty speaking. In association with the speech difficulty, the patient also appreciated right sided facial droop. No cardiovascular complaints of chest pains or pressure. No PND or orthopnea. Patient was recently seen in the outpatient setting (August) after a similar episode was noted. Given the symptoms, patient was on both ASA and Plavix therapy. Pacer had not (at that time) been interrogated to ensure pAF was not present. Outpatient neurology following was ongoing. Review of outpatient EMR without pacer interrogation data present. Today, the patient feels that the symptoms have resolved, and aphasia is no longer present with casual conversation. Pacer interrogation was reportedly performed (with transmission of home data), and no gross pathology was identified, but review of the hard data has not been possible as of the generation of this note. Neurology with concerns that metabolic issues might have allowed resurfacing of neuro deficits from recent CVA, but without MRI (given the pacer), certainty is diminished. Plan: (1) Echocardiography is pending (2) Would like to have all available pacer data - that from home monitor as well as with this current admission (3) Would continue aggressive management of DM (4) Lisinopril should continue for HTN management assistance (5) Zetia therapy for HLP to continue as at present (6) Neurology following patient - recommendations for OT/PT/Speech assessment as per neurology - outpatient follow up with neurology Subjective: No active cardiovascular complaints at present Objective: Vital Signs (8 Hrs) Temp Pulse Resp BP Pulse Ox 10/05/18 11:16 36.5 C 92 17 128/72 H 91 L 10/05/18 08:52 84 L 10/05/18 07:33 36.8 C 90 16 137/83 H 90 L Intake/Output (24 Hrs) 10/04/18 10/05/18 10/06/18 05:59 05:59 05:59 Other: Weight 86.593 kg Number of Voids Toilet 4 Result Diagrams: 10/04/18 12:50 10/04/18 12:50 Cardiac Labs: Cardiac Lab Results (72 Hrs) 10/05/18 10/04/18 00:30 18:20 Troponin I < 0.012 < 0.012 EKG: normal sinus rhythm - Physical Exam Constitutional: WDWN, healthy appearing, no apparent distress Eyes: PERRL, EOMI Ears, Nose, Mouth, Throat: moist mucous membranes Cardiovascular: regular rate and rhythm, no murmurs, pulses symmetric bilat, No jugular vein distention Peripheral Pulses: 2+: dorsalis-pedis (R), dorsalis-pedis (L) Respiratory: clear to auscultate bilat, no crackles, no wheezes Gastrointestinal: normoactive bowel sounds Skin: no rashes, no edema Musculoskeletal: no muscular tenderness Neurologic: AAOx3 Psychiatric: cooperative, interactive, following commands ICD10 Worksheet Patient Problems: Problems Problem Status Onset Transient cerebral ischemia Acute Slurred speech Acute Stroke Acute Third degree heart block Acute
--- NOTE | 2018-10-05 15:42 | ASMTCMCOM ---
CM Note CM Note Notes: CM spoke with pt in the room. Pt lives at [facility] and does outpatient therapy on the first floor of her building with [facility]. Pt admitted for expressive aphasia and rt facial droop in the setting of past CVA and hyperglycemia. PT is recommending OP therapy, OT is recommending HHC. RN feels pt moves well enough to get in an elevator and get downstairs to her OP therapy, so pt will likely discharge independently. Referral sent to [facility]. Message also left for Karmen at [facility]. Pt states she has a friend who will give her a ride home on discharge. CM to follow. D/C Plan: Independent with OP therapy at [facility] Date Signed: 10/05/2018 03:41 PM Electronically Signed By:Lesia Guzman
--- NOTE | 2018-10-05 15:45 | HOSPPROG ---
Hospitalist Progress Note Assessment/Plan: 73 y/o w/hx of CVA, hypothyroidism, HTN, HLD, CHB s/p PPM, and DM 2 presents as a stroke alert w/expressive asphasia and right facial droop which has since resolved. First encounter, chart reviewed. #TIA -Neurology consulted; continue DAPT -Cont tele monitoring -Lipid panel elevated; pravastatin (per pt, statin allergy is SAMAYOA) -Unable to perform MRI d/t pacemaker -Echo w/bubble pending -Head/Neck CTA w/o significant findings August 2018 -Permissive HTN -PT/OT/[employer]GER to evaluate and treat #Hypertriglyc -cont home meds #AHRF -unclear etiol -cont supportive care -cxr stable -consider CT chest -pt complains of SOB #Headache: -Tylenol PRN #Nausea: -Anti-emetics PRN #Exertional SOB: -Denies recent illness. -d-dimer slightly elevated, no CTA as pt DAPT -cardiology consult, D/W Dr Nelson #Complete heart block -Spoke to Dr. Nelson -interrogate PPM -Echo pending -Cont tele -abnormal EKG #DM2: -A1c was 10.7% September 16, 2018. -ISS in house, glucose checks TID before meals -Cont long-acting home insulin -pt has an "odd" insulin regimen #Hypothyroidism -TSH stable -Cont L4T Diet: Carb-controlled Code: Full VTE ppx: SCDs Dispo: Need further evaluation in hospital setting carotid doppler ending ECHO cards eval tele ppm interrigation Subjective: Feels better but still not resolved. No pain. Objective: Vital Signs Temp Pulse Resp BP Pulse Ox 36.5 C 99 19 131/71 H 89 L 10/05/18 15:19 10/05/18 15:19 10/05/18 15:19 10/05/18 15:19 10/05/18 15:19 - Physical Exam Constitutional: no apparent distress, appears nourished, not in pain Eyes: PERRL, anicteric sclera, EOMI Ears, Nose, Mouth, Throat: moist mucous membranes, hearing normal, ears appear normal Cardiovascular: No JVD, No tachycardia, No edema Respiratory: no respiratory distress, no rales or rhonchi, reduced air movement Gastrointestinal: normoactive bowel sounds, No tenderness, No ascites Skin: warm, normal color, No mottled Musculoskeletal: normal joint ROM, no joint effusions, generalized weakness Neurologic: AAOx3 Psychiatric: not anxious, not encephalopathic, thought process linear ICD10 Worksheet Patient Problems: Problems Problem Status Onset Third degree heart block Acute Stroke Acute Slurred speech Acute Transient cerebral ischemia Acute
--- NOTE | 2018-10-05 16:41 | CPEKG ---
Test Reason : OPEN Blood Pressure : / mmHG Vent. Rate : 098 BPM Atrial Rate : 097 BPM P-R Int : 172 ms QRS Dur : 129 ms QT Int : 407 ms P-R-T Axes : 061 102 005 degrees QTc Int : 520 ms Sinus rhythm LBBB Confirmed by Derrell Polk ([id number]) on 10/05/2018 4:40:55 PM Referred By: Connor Swift Confirmed By:Derrell Polk
--- NOTE | 2018-10-05 17:00 | ECHO ---
[email or web address] [address] [address] Main: [phone] Echocardiography Examination Transthoracic Name: CAROLINE GIBSON MR#: [id number] Study Date: 10/05/2018 Study Time: 01:39 PM Date of : 1945 Age: 73 year(s) Height: 157.5 cm (62 in.) Weight: 86.18 kg (190 lb.) BSA: 1.87 m2 Gender: Female Examination: Echo Contrast: Image Quality: Adequate Rhythm: Heart Rate: BP: 128 mmHg/72 mmHg Indication: TIA/pacemaker Procedure Staff Referring Physician: [employer] Hand[employer] Plant Operator: Mony Luciano [facility] Reading Physician: Mk Nelson MD Requesting Provider: Ordering Physician: Isabel Carter Indication: TIA/pacemaker Measurements Chambers AV/MV Label Value Normal Value Label Value Normal Value LVDd, 2D 4.7 cm (3.9cm - 5.3cm) AV PGmean 3 mmHg LVDs, 2D 3.3 cm (2.1cm - 4cm) AV Vmax 1.03 m/s IVSd, 2D 1 cm (0.6cm - 1.1cm) MV E Vmax 1.24 m/s LVPWd, 2D 0.8 cm MV A Vmax 1.34 m/s LVEF, 2D 57 % (54% - 74%) MV E/A 0.93 LA Volume, BP 34 ml (22ml - 52ml) MV E/E' lateral 42.5 LADs, 2D 3.4 cm (2.7cm - 3.8cm) MV E/E' septal 38.5 (0.45 - 1.25) LAESV index, BP 18.2 ml/m2 MV E' septal 0.16 m/s Additional Vessels MV E' lateral 0.1 m/s Label Value Normal Value MV E/E' mean 9.54 AoAsc 2.8 cm MV E' mean 0.13 m/s AoRoot, MM 3.2 cm (2.2cm - 3.7cm) TV/PV Label Value Normal Value RA Pressure 5 mmHg RVSP 22 mmHg TR Pmax 17 mmHg TR Vmax 2.09 m/s Patient: CAROLINE GIBSON Study Date: 10/05/2018 Page 1 of 3 01:39 PM Conclusions (1) Left ventricular systolic ejection fraction was normal (55-60%) - no LVH (2) Normal RV size - pacer/ICD lead was noted to the RV chamber (3) Normal atrial dimensions (4) Mild MR (5) Trileaflet aortic valve without sclerosis or insufficiency (6) Grossly normal tricuspid valve - RVSP was normal (7) Ascending aorta was 2.8 cm (8) No pericardial effusion Findings Left Ventricle: Left ventricle is normal in size. Normal global systolic left ventricular function. EF range is estimated at 55 % - 60 %. Left ventricle wall thickness is normal. There are no regional wall motion abnormalities. IVS: The septum is intact. Right Ventricle: Normal size right ventricle. Right ventricular systolic function is normal. There is a pacemaker lead noted in the right ventricle. Left Atrium: Bubble study was performed on the echo of 01/26/18 and was negative for shunting.. The left atrium is normal in size. IAS: Normal appearing atrial septum. Right Atrium: The right atrium is normal in size. Mitral Valve: Mitral valve is normal in appearance. Mild mitral regurgitation. No mitral valve stenosis. Aortic Valve: Aortic leaflets exhibit normal cuspal separation. No aortic valve regurgitation. There is no aortic stenosis. The aortic valve is trileaflet. Tricuspid Valve: Tricuspid valve leaflets are normal in appearance and function. Trivial tricuspid regurgitation. No tricuspid valve stenosis. Right Ventricular systolic pressure is measured at 22 mmHg. Pulmonary artery pressure normal. Pulmonic Valve: Pulmonic leaflets exhibit normal cuspal separation. No pulmonic valve regurgitation is evident. There is no pulmonic valve stenosis. Aorta: The aorta is normal. The aortic root size in M-mode measures 3.2 cm. The ascending aorta measures 2.8 cm. Aorta Measurements AoRoot, MM is 3.2 cm. Pulmonary Artery: The pulmonary artery morphology appears normal. IVC: The inferior vena cava is normal in size and course. Pericardium: A pericardial fat pad is present. No pericardial effusion. No pleural effusion present. Exam Details Procedure Ordered: Echo Procedure Status: Routine study Image Quality: Adequate Patient: CAROLINE GIBSON Study Date: 10/05/2018 Page 2 of 3 01:39 PM Facility Location: Cardiac Echo 1 (No Signature Object) Patient: CAROLINE GIBSON Study Date: 10/05/2018 Page 3 of 3 01:39 PM [id number]
[2018-10-05] MEDS: CLOPIDOGREL BISULFATE 75 MG TAB PO SCH (18:26)
[2018-10-05] MEDS: CHOLECALCIFEROL VIT D3 2,000 UNITS TAB/CAP PO SCH (22:27)
[2018-10-05] MEDS: PANTOPRAZOLE SODIUM 40 MG TAB PO SCH (22:28)
[2018-10-06] MEDS: LEVOTHYROXINE 50 MCG TAB PO SCH (05:02)
[2018-10-06] MEDS: ASPIRIN EC 81 MG TAB PO SCH (08:03)
[2018-10-06] MEDS: PREGABALIN 50 MG CAP PO SCH ×2 (08:03→22:08)
[2018-10-06] MEDS: DULoxetine 60 MG CAP PO SCH (08:03)
[2018-10-06] MEDS: PRAVASTATIN SODIUM 40 MG TAB PO SCH (08:03)
[2018-10-06] MEDS: FENOFIBRATE 48 MG TAB PO SCH (08:03)
[2018-10-06] MEDS: INSULIN GLARGINE 100 UNITS/ML UNIT SC SCH ×2 (08:03→22:09)
[2018-10-06] MEDS: EZETIMIBE 10 MG TAB PO SCH (08:03)
[2018-10-06] MEDS ORDERED: FUROSEMIDE 20 MG/2 ML VIAL IVP ONE (09:48)
--- NOTE | 2018-10-06 10:16 | NEUROPROG ---
Assessment: [id number] - Neurology Consult: - CC: F/U for Speech disturbance, right facial weakness - Narrative Summary: 10/05/18: Pt with prior left internal capsule lacunar infarct presented to [facility] with problems speaking and right sided facial droop (symptoms similar to prior stroke in 2018). Pt had glucose in 300s with H1AC of 10.6. Head CT showed no acute changes. Symptoms resolved in the ER. Pt had pacemaker so could not get MRI. Pt was on aspirin 81 mg qd and plavix 75 mg qd prior to admission. LDL was 121. Her neurologic exam showed stable left eye vision loss. Given pt with glucose in 300s and H1AC 10.6 I suspect she had an acute confusional state from this causing stroke resurvesence of old left internal capsule stroke to cause recurrence of prior stroke symptoms. Due to pacemaker I cannot obtain a brain MRI. However, TIA or small stroke is also possible so I would recommend echocardiogram and carotid U/S. If these are unremarkable then focus on good diabetic and cholesterol control. - HPI: F/U 10/06/18. TTE and carotid U/S show no cause for her symptoms. They have not recurred. I suspect they are most likely stroke recrudescence from prior stroke at this time but TIA/small stroke is possible. - PMHx: CVA, HTN, HLD, TIA, DM2, gastroparesis, congenital left eye blindness, heart block, hypothyroidism, idiopathic pancreatitis, pacemaker, R foot surgery - SHx: no tobacco FHx: renal disease - ROS: Pt denied acute fever, total vision loss, active severe chest pain, respiratory failure, total body severe rash, total bowel/bladder incontinence, psychosis, active seizures, or active bleeding - Labs: 10/04/18- H1AC 10.6, glucose 316 10/05/18- LDL 121H - Rads: 10/04/18- Head CT wo: Lacunar infarct, at left internal capsule laterally, slightly increased from August 30, 2018, but still at least several weeks old. No acute intracranial hemorrhage or mass or evidence for stroke. 10/05/18- Carotid U/S: no significant flow limiting stenosis 10/05/18- TTE: no cardiac thrombus noted - Assessment: 1. Transient right facial droop and speech disturbance: Given pt with glucose in 300s and H1AC 10.6 on admission on 10/04/18 I suspect she had an acute confusional state from this causing stroke recrudescence of old left internal capsule stroke to cause recurrence of prior stroke symptoms. Due to pacemaker I cannot obtain a brain MRI. I recommend addressing diabetes and cholesterol to lower stroke risk. - Plan: - Continue aspirin 81 mg qd and plavix 75 mg qd for stroke prevention - LDL goal < 70 (121), recommend statin to address this if pt can tolerate it - H1aC goal < 7.0 (10.6), this is likely cause of her symptoms, addressing this will lower stroke risk - Blood Pressure goal < 140/90 - Recommend pacemaker interrogation to ensure no afib - PT/OT/Speech to determine any rehab needs - Pt should f/u with her outpatient neurologist, Dr. Chaudhari, 1-6 weeks after hospital discharge - No further inpt w/u needed, neurology will sign off - 35 min spent with patient, majority of time spent counseling on symptoms and prognosis. Objective: Vital Signs Temp Pulse Resp BP Pulse Ox 36.6 C 93 17 127/80 H 89 L 10/06/18 07:40 10/06/18 07:40 10/06/18 07:40 10/06/18 07:40 10/06/18 07:40 10/05/18 10/06/18 10/07/18 05:59 05:59 05:59 Intake Total 930 Balance 930 Allergies/Adverse Reactions: atorvastatin Allergy (Mild, Verified 10/04/18 16:29) HEADACHE diphenhydramine Allergy (Unknown, Verified 10/04/18 13:11) divalproex sodium Allergy (Unknown, Verified 10/04/18 13:11) venlafaxine Allergy (Unknown, Verified 10/04/18 13:11) desvenlafaxine Allergy (Verified 10/04/18 13:11) mushroom Allergy (Verified 10/04/18 13:11) metaclopramide Allergy (Uncoded 08/30/18 14:51) products containing shellfish Allergy (Uncoded 08/30/18 14:51)
--- NOTE | 2018-10-06 11:18 | PDCARPN ---
Cardiology Progress Note Chief Complaint: No cardiovascular complaints this morning Assessment/Plan: Assessment: 10-06-18 No cardiovascular complaints were voiced this morning. Pacer interrogation yesterday without atrial fibrillation noted over the past six months. The patient did have about 30 "events" with elevated heart rates, but review of this data with what appears to be atrial tachycardia. Furthermore, the longest event was 3 minutes at the end of March 2018. There remaining events are clearly NOT atrial fibrillation. All are less than 2 minutes in duration. No chest pains or pressure this morning. No PND or orthopnea. Ongoing DAPT with ASA and Plavix therapy. 10-05-18 Patient is a 73 y/o female, known to cardiology in the outpatient setting with CHB s/p PPM, DM, HTN, HLP, hypothyroidism, and TIA/CVA, who presents to [facility] ER with complaints of difficulty speaking. In association with the speech difficulty, the patient also appreciated right sided facial droop. No cardiovascular complaints of chest pains or pressure. No PND or orthopnea. Patient was recently seen in the outpatient setting (August) after a similar episode was noted. Given the symptoms, patient was on both ASA and Plavix therapy. Pacer had not (at that time) been interrogated to ensure pAF was not present. Outpatient neurology following was ongoing. Review of outpatient EMR without pacer interrogation data present. Today, the patient feels that the symptoms have resolved, and aphasia is no longer present with casual conversation. Pacer interrogation was reportedly performed (with transmission of home data), and no gross pathology was identified, but review of the hard data has not been possible as of the generation of this note. Neurology with concerns that metabolic issues might have allowed resurfacing of neuro deficits from recent CVA, but without MRI (given the pacer), certainty is diminished. Plan: (1) Would maintain therapy on both ASA and Plavix with past history (as noted) (2) Lisinopril should continue for HTN managment assistance (3) Zetia should continue for HLP (4) Continued aggressive DM management (5) OT/PT/Speech assessments (6) Maintain scheduled pacer interrogations Subjective: No cardiovascular complaints Objective: Vital Signs (8 Hrs) Temp Pulse Resp BP Pulse Ox 10/06/18 07:40 36.6 C 93 17 127/80 H 89 L 10/06/18 03:11 37.0 C 88 14 106/69 93 Intake/Output (24 Hrs) 10/05/18 10/06/18 10/07/18 05:59 05:59 05:59 Intake Total 930 Balance 930 Intake: Oral (ml) 930 Other: Weight 86.593 kg Number of Voids Toilet 4 4 Result Diagrams: 10/06/18 10:14 10/06/18 10:14 Cardiac Labs: Cardiac Lab Results (72 Hrs) 10/05/18 10/04/18 00:30 18:20 Troponin I < 0.012 < 0.012 Telemetry: Sinus rhythm with BBB pattern (L) - Physical Exam Constitutional: WDWN, healthy appearing, no apparent distress, obese Eyes: PERRL, EOMI Ears, Nose, Mouth, Throat: moist mucous membranes Cardiovascular: regular rate and rhythm, pulses symmetric bilat, No jugular vein distention Peripheral Pulses: 2+: dorsalis-pedis (R), dorsalis-pedis (L) Gastrointestinal: normoactive bowel sounds Skin: no rashes, other (trace edema to BLE) Musculoskeletal: no muscular tenderness Neurologic: AAOx3 Psychiatric: cooperative, interactive, following commands ICD10 Worksheet Patient Problems: Problems Problem Status Onset Transient cerebral ischemia Acute Slurred speech Acute Stroke Acute Third degree heart block Acute
[2018-10-06] MEDS: INSULIN LISPRO 100 UNIT/ML SC SCH ×4 (11:45→21:03)
[2018-10-06] MEDS ORDERED: IOPAMIDOL (ISOVUE 370) 100 ML BTL IV ONE (11:54)
--- NOTE | 2018-10-06 13:26 | HOSPPROG ---
Hospitalist Progress Note Assessment/Plan: 73 y/o w/hx of CVA, hypothyroidism, HTN, HLD, CHB s/p PPM, and DM 2 presents as a stroke alert w/expressive asphasia and right facial droop which has since resolved. #TIA -Neurology consulted; continue DAPT -Cont tele monitoring -Lipid panel elevated; pravastatin (per pt, statin allergy is SAMAYOA) -Unable to perform MRI d/t pacemaker -Echo w/bubble stable -Head/Neck CTA w/o significant findings August 2018 -Permissive HTN -PT/OT/NATURAL RESOURCES FACULTY MEMBER to evaluate and treat #Hypertriglyc -cont home meds -needs more aggressive treatment -pt states she can not take other statins #AHRF -unclear etiol -CTA negative -ATX? -cont supportive care -cxr stable -pt complains of SOB with excertion -consider stress test? reviewed with cards #Headache: -Tylenol PRN #Nausea: -Anti-emetics PRN #Exertional SOB: -Denies recent illness. -d-dimer slightly elevated, no PE on CTA -cardiology consult #Complete heart block -interrogate PPM, stable -Echo stable -Cont tele -abnormal EKG #DM2: -A1c was 10.7% September 16, 2018. -ISS in house, glucose checks TID before meals -Cont long-acting home insulin -pt has an "odd" insulin regimen -refuses to have more aggressive therapy #Hypothyroidism -TSH stable -Cont L4T Diet: Carb-controlled Code: Full VTE ppx: SCDs Dispo: Need further evaluation in hospital setting will need to return to [facility] when able Subjective: Still feeling SOB. TIred. No other complaints. Objective: Vital Signs Temp Pulse Resp BP Pulse Ox 36.7 C 108 H 15 135/96 H 91 L 10/06/18 11:13 10/06/18 11:13 10/06/18 11:13 10/06/18 11:13 10/06/18 11:13 Laboratory Results 10/06/18 10:14 10/06/18 10:14 10/05/18 10/06/18 10/07/18 05:59 05:59 05:59 Intake Total 930 Balance 930 - Physical Exam Constitutional: appears nourished, not in pain, chronically ill appearing Eyes: EOMI, other (left eye blindness), No anicteric sclera Ears, Nose, Mouth, Throat: moist mucous membranes, hearing normal, ears appear normal Cardiovascular: regular rate and rhythym, No JVD, No edema Respiratory: no respiratory distress, no rales or rhonchi, reduced air movement Gastrointestinal: normoactive bowel sounds, No tenderness, No ascites Skin: warm, normal color, No mottled Musculoskeletal: normal joint ROM, no joint effusions, generalized weakness Neurologic: AAOx3 Psychiatric: not anxious, not encephalopathic, poor insight ICD10 Worksheet Patient Problems: Problems Problem Status Onset Third degree heart block Acute Stroke Acute Slurred speech Acute Transient cerebral ischemia Acute
[2018-10-06 15:36] LABS: CREATINE KINASE 90 IU/L (0-156)
--- NOTE | 2018-10-06 17:12 | PDMN ---
Medical Necessity Medical necessity: [facility] Pulmonary Disease: 73 yo presents as stroke alert w / expressive aphasia and R facial droop, resolved in ED. Thought to be TIA. Initially OBS for workup, neuro and cardiac consults but pt status has declined , pt is now tachycardic >100, c/o SOB, increased O2 needs from 2L on admit to 10L oxymask at this time, unclear etiology. Meets [facility] IP criteria for [facility] w/ resp distress indicated by SOB and acute hypoxemia. Change to IP status 10/06/18@ 1328 per SENIOR NATIONAL ACCOUNT MANAGER order. Hx CVA, TIA, HTN, HLD, DM, complete heart block, pacer.
[2018-10-06] MEDS: CLOPIDOGREL BISULFATE 75 MG TAB PO SCH (17:54)
--- NOTE | 2018-10-06 20:55 | HOSPPROG ---
Hospitalist Progress Note Assessment/Plan: Asked by nursing to see patient due to progressive worsening respiratory status. Patient's oxygen requirement has gone steadily up since admission, now sats are 92% on 15L NRB with increasing tachycardia, HR > 115 Patient sitting in bed, increase WOB, on 15L NRB mask Lungs CTA bilaterally CVS RRR - tachy abd - soft NT ext - no C/C/E CTA chest done earlier today - no PE CXR viewed - poor inspiration ECHO - normal EF, no shunt, relatively unremarkable A/P: * Acute respiratory failure - severe hypoxia, now borderline sats on 15L NRB -No PE, no Wheeze, lungs look okay on CT. Suspect underlying Obesity Hypoventilation Syndrome worsened by hospital admission and increased immobility. Check ABG. Transfer to Step Down for increased monitoring. May need BIPAP tonight if she desats any further while sleeping. Probably has RAKESH as well. Increase pulmonary hygiene and mobility as able. * Metabolic encephalopathy - per neuro acute confusional state caused recrudescence of previous CVA symptoms -ASA, Plavix -LDL 122 - statin added CC time - 35 minutes Objective: Vital Signs Temp Pulse Resp BP Pulse Ox 36.8 C 116 H 18 124/75 H 94 10/06/18 19:08 10/06/18 19:08 10/06/18 19:08 10/06/18 19:08 10/06/18 19:08 Laboratory Results 10/06/18 10:14 10/06/18 10:14 10/05/18 10/06/18 10/07/18 05:59 05:59 05:59 Intake Total 930 1600 Balance 930 1600 ICD10 Worksheet Patient Problems: Problems Problem Status Onset Third degree heart block Acute Stroke Acute Slurred speech Acute Transient cerebral ischemia Acute
[2018-10-06] MEDS: CHOLECALCIFEROL VIT D3 2,000 UNITS TAB/CAP PO SCH (22:08)
[2018-10-06] MEDS: PANTOPRAZOLE SODIUM 40 MG TAB PO SCH (22:08)
[2018-10-07] MEDS: LEVOTHYROXINE 50 MCG TAB PO SCH (09:33)
[2018-10-07] MEDS: DULoxetine 60 MG CAP PO SCH (09:34)
[2018-10-07] MEDS: EZETIMIBE 10 MG TAB PO SCH (09:34)
[2018-10-07] MEDS: PREGABALIN 50 MG CAP PO SCH ×2 (09:34→21:58)
[2018-10-07] MEDS: ASPIRIN EC 81 MG TAB PO SCH (09:34)
[2018-10-07] MEDS: PRAVASTATIN SODIUM 40 MG TAB PO SCH (09:34)
[2018-10-07] MEDS: INSULIN GLARGINE 100 UNITS/ML UNIT SC SCH ×2 (09:35→21:58)
[2018-10-07] MEDS: INSULIN LISPRO 100 UNIT/ML SC SCH ×4 (11:23→21:09)
[2018-10-07] MEDS: FENOFIBRATE 48 MG TAB PO SCH (12:06)
[2018-10-07 13:45] LABS: PLATELET COUNT 250 10^3/uL (150-400)
--- NOTE | 2018-10-07 16:19 | ASMTCMCOM ---
TOMMY Note CM Note Notes: Spoke with [facility] as they called to check on patient's progress. They were informed the d/c plan currently is patient will return to Assisted Living with outpatient physical therapy at discharge. They would like us to let them know when she is d/cing as they have to come and re-evaluate the patient before she can return to [facility]. CM following. Date Signed: 10/07/2018 04:18 PM Electronically Signed By:Melissa Turcios LCSW
--- NOTE | 2018-10-07 16:37 | HOSPPROG ---
Hospitalist Progress Note Assessment/Plan: # acute hypoxic respiratory failure - no clear reason why she should be so hypoxic - will try to wean from oxygen and follow - CT ok, no PE, bubble echo last year without shunt - pulmonology involved # neurologic symptoms, history of TIA - stroke recrudescence per Neurology - cont asa/low dose crestor - ppm without clear a-fib (had runs of a-tach) # complete heart block status post pacemaker # hyperlipidemia # DM2, uncontrolled, last A1C 10% - increase glargine 40/25 -> 40/30 tonight - cont lispro pre-meal # hypothyroid - synthroid Subjective: Moved to step-down unit overnight for severe respiratory distress Objective: Vital Signs Temp Pulse Resp BP Pulse Ox 36.6 C 104 H 20 108/67 92 10/07/18 11:55 10/07/18 16:00 10/07/18 16:00 10/07/18 16:00 10/07/18 16:00 Laboratory Results 10/07/18 13:35 10/07/18 13:35 10/06/18 10/07/18 10/08/18 05:59 05:59 05:59 Intake Total 930 1850 Balance 930 1850 chart reviewed Discussed with Dr. Coleman CT scan personally reviewed - Physical Exam Cardiovascular: regular rate and rhythym, no murmur, rub, or gallop Respiratory: respiratory distress (mild), No expiratory wheeze, No inspiratory crackles Gastrointestinal: soft, non-tender abdomen, no palpable masses, No guarding, No rebound, No distension ICD10 Worksheet Patient Problems: Problems Problem Status Onset Third degree heart block Acute Stroke Acute Slurred speech Acute Transient cerebral ischemia Acute
[2018-10-07] MEDS ORDERED: FUROSEMIDE 20 MG/2 ML VIAL IVP ONE (16:41)
[2018-10-07] MEDS: CLOPIDOGREL BISULFATE 75 MG TAB PO SCH (18:09)
--- NOTE | 2018-10-07 18:25 | GHP ---
[f rep st] HISTORY AND PHYSICAL REFERRING PHYSICIAN: Samantha Lehman NP REASON FOR REFERRAL: Evaluation and management of hypoxemia and dyspnea. HISTORY: The patient is a 73-year-old woman who was admitted to the hospital on October 04, with the new onset of expressive aphasia and right-sided facial droop. Her symptoms resolved fairly promptly. Pr ior to that, she had 2-3 weeks of exertional dyspnea. She denies any cough. Here in the hospital, s he was initially on just 2 L of oxygen, but yesterday, actually her oxygen needs markedly increased. She does not really report an increase in her dyspnea. She has had no fevers or chest pain. PAST MEDICAL HISTORY: 1. TIA. This patient was admitted with this. She has had a prior history of stroke with similar sy mptoms, and it was felt that this could be related to her prior stroke. She is on anti-platelet ther apy for this. 2. Hypertension. 3. Hyperlipidemia. 4. Diabetes with gastroparesis. 5. Complete heart block, status post pacemaker. MEDICATIONS: At the time of admission include pantoprazole, pregabalin, loperamide, levothyroxine, d uloxetine, melatonin, aspirin, Zetia, clopidogrel. ALLERGIES: Atorvastatin, diphenhydramine, venlafaxine, divalproex. SOCIAL HISTORY: The patient has never smoked and does not drink alcohol. She lives in [facility]. FAMILY HISTORY: Unremarkable. REVIEW OF SYSTEMS: A 10-point review of systems adds nothing to the history of present illness. PHYSICAL EXAMINATION: GENERAL: The patient is awake, alert, in no acute distress. Blood pressure i s 108/67, with a heart rate of 104. She is afebrile. Oxygen saturations are 92% on 35% oxygen via h igh flow. HEENT: Normocephalic and atraumatic. No icterus. NECK: No JVD. Trachea is midline. C HEST: She has decreased breath sounds in the right base with some rales. CARDIAC: Regular tachycar anushka without murmur. ABDOMEN: Soft, nontender. Bowel sounds are present. EXTREMITIES: No clubbing , cyanosis, or edema. NEURO: The patient is awake and alert. She has no gross motor or sensory def icits. LABORATORY: CBC is unremarkable. BMP is remarkable for a BUN of 31 with a creatinine of 1.2. Gluco se is 280, but it was in the 100s for most of the day prior to the current check. An arterial blood gas last night showed a pH of 7.41 with a pO2 of 75, a CO2 of 41 and a bicarbonate of 25 on 15 L of o xygen. A BNP on 10/[address] was [address] chest [address] scan shows an elevated right diaphragm. This is not elevated on 1 prior chest x-ray, but was seen to be elevated on other prior chest x-rays. She has some mild atelectasis/hypoventilation i n the right base, with some crowding of vessels. Images reviewed by me. Fluoroscopy of the diaphrag m demonstrates the diaphragm is elevated, but moves normally. Images reviewed by me. There is no ev idence of pulmonary embolism. ASSESSMENT: Hypoxemia and dyspnea. The cause for this is unclear. Her chest CT scan from yesterday morning really did not show anything significant. Subsequently, she developed increased hypoxemia. This could be due to worsened atelectasis causing V/Q mismatch, shunt mucous plugging, or a new infi ltrate or changes since the CAT scan. Her oxygen needs peaked this morning, but have come down a bit this afternoon. RECOMMENDATIONS: 1. Repeat chest x-ray. 2. Check echocardiogram for LV function, as well as intracardiac shunt. /[id number]/MODL
[2018-10-07] MEDS: PANTOPRAZOLE SODIUM 40 MG TAB PO SCH (21:58)
[2018-10-07] MEDS: CHOLECALCIFEROL VIT D3 2,000 UNITS TAB/CAP PO SCH (21:58)
[2018-10-08] MEDS: LEVOTHYROXINE 50 MCG TAB PO SCH (05:30)
[2018-10-08] MEDS: INSULIN LISPRO 100 UNIT/ML SC SCH ×4 (10:07→20:40)
[2018-10-08] MEDS ORDERED: FUROSEMIDE 20 MG/2 ML VIAL IVP ONE (10:09)
[2018-10-08] MEDS: EZETIMIBE 10 MG TAB PO SCH (10:38)
[2018-10-08] MEDS: ROSUVASTATIN CALCIUM 10 MG TAB PO SCH (10:38)
[2018-10-08] MEDS: ASPIRIN EC 81 MG TAB PO SCH (10:39)
[2018-10-08] MEDS: FENOFIBRATE 48 MG TAB PO SCH (10:39)
[2018-10-08] MEDS: DULoxetine 60 MG CAP PO SCH (10:39)
[2018-10-08] MEDS: PREGABALIN 50 MG CAP PO SCH ×2 (10:39→22:10)
[2018-10-08] MEDS: INSULIN GLARGINE 100 UNITS/ML UNIT SC SCH ×2 (10:40→22:10)
--- NOTE | 2018-10-08 11:45 | HOSPPROG ---
Hospitalist Progress Note Assessment/Plan: # acute hypoxic respiratory failure - improving slowly - no clear reason why she should be so hypoxic - will try to wean from oxygen and follow - CT ok, no PE, bubble echo last year without shunt - CXR personally reviewed today, no e/o of edema or infiltrate - Lung exam is clear - pulmonology involved # neurologic symptoms, history of TIA - Neurology has signed off -Expressive Aphasia and Right Facial droop have resolved - cont asa/plavix/low dose crestor/bp mgmt - ppm without clear a-fib (had runs of a-tach) # complete heart block status post pacemaker, cardiology has singed off # mild LISSETT - recheck tomorrow. appears Euvolemic # hyperlipidemia # DM2, uncontrolled, last A1C 10% - Glargine was increased to 40a.m/30hs on 10/07. Glucose improving today. Will monitor today prior to further Lantus changes - Lispro is being taken after meals and at various doses. For simplification and for better glucose mgmt, will change dose to 15units TID with meals. # hypothyroid - synthroid Subjective: O2 nees are improving. Still without clear etiology Objective: Vital Signs Temp Pulse Resp BP Pulse Ox 36.7 C 97 20 126/94 H 90 L 10/08/18 10:17 10/08/18 10:17 10/08/18 10:17 10/08/18 10:17 10/08/18 10:17 Laboratory Results 10/07/18 13:35 10/08/18 05:55 10/07/18 10/08/18 10/09/18 05:59 05:59 05:59 Intake Total 1850 1000 Balance 1850 1000 - Physical Exam Constitutional: no apparent distress Eyes: PERRL, EOMI Ears, Nose, Mouth, Throat: moist mucous membranes, hearing normal Cardiovascular: regular rate and rhythym Respiratory: no respiratory distress, no rales or rhonchi, clear to auscultation Gastrointestinal: normoactive bowel sounds, soft, non-tender abdomen Skin: warm Neurologic: AAOx3 Psychiatric: interacting appropriately, not anxious, not encephalopathic Lymph, Heme, Immunologic: No petechiae ICD10 Worksheet Patient Problems: Problems Problem Status Onset Transient cerebral ischemia Acute Slurred speech Acute Stroke Acute Third degree heart block Acute
--- NOTE | 2018-10-08 13:06 | PDINTPN ---
Associate Accountant Progress Note Assessment/Plan: Assessment: S/P TIA: Resolved. Hypoxemia: I suspect this is due to hypoventilation, with some shunting through atelectasis in bases, resulting in relatively oxygen-refractory hypoxemia. Obesity likely contributes to this. Elevated right diaphragm: Chronic. Moves normally on fluoroscopy. Plan: Try decreasing FIO2, tolerate lower O2 sats, and see how she does with increased mobilization. Encourage weight loss. 10/08/18 13:01 10/08/18 13:06 Subjective: Feels OK, denies dyspnea, cough, but hasn't been very active due to being on Vapotherm. Objective: Vital Signs Temp Pulse Resp BP Pulse Ox 36.7 C 96 19 133/77 H 94 10/08/18 11:59 10/08/18 11:59 10/08/18 11:59 10/08/18 11:59 10/08/18 11:59 Laboratory Results 10/07/18 13:35 10/08/18 05:55 10/07/18 10/08/18 10/09/18 05:59 05:59 05:59 Intake Total 1850 1000 Balance 1850 1000 CXR: Hypoventilation. Images reviewed by me. Physical Exam - Physical Exam General Appearance: alert, no apparent distress EENT: normal ENT inspection Neck: normal inspection Respiratory: lungs clear, normal breath sounds, crackles (bases) Cardiac/Chest: regular rate, rhythm, No edema Abdomen: normal bowel sounds, non-tender Skin: normal color, warm/dry Extremities: normal inspection Neuro/Psych: alert, normal mood/affect ICD10 Worksheet Patient Problems: Problems Problem Status Onset Transient cerebral ischemia Acute Slurred speech Acute Stroke Acute Third degree heart block Acute
--- NOTE | 2018-10-08 13:32 | ASMTCMCOM ---
CM Note CM Note Notes: Patient remains in acute hypoxic respiratory failure with no clear reason identified. Patient d/c plan remains home independent with outpatient follow up. She does live in Assisted Living at [facility]. CM following. Date Signed: 10/08/2018 01:31 PM Electronically Signed By:Melissa Turcios LCSW
[2018-10-08] MEDS: CLOPIDOGREL BISULFATE 75 MG TAB PO SCH (17:29)
[2018-10-08] MEDS: CHOLECALCIFEROL VIT D3 2,000 UNITS TAB/CAP PO SCH (22:10)
[2018-10-08] MEDS: PANTOPRAZOLE SODIUM 40 MG TAB PO SCH (22:10)
[2018-10-09] MEDS: INSULIN GLARGINE 100 UNITS/ML UNIT SC SCH ×2 (08:44→23:02)
[2018-10-09] MEDS: ASPIRIN EC 81 MG TAB PO SCH (08:44)
[2018-10-09] MEDS: FENOFIBRATE 48 MG TAB PO SCH (08:45)
[2018-10-09] MEDS: PREGABALIN 50 MG CAP PO SCH ×2 (08:45→21:15)
[2018-10-09] MEDS: LEVOTHYROXINE 50 MCG TAB PO SCH (08:45)
[2018-10-09] MEDS: DULoxetine 60 MG CAP PO SCH (08:45)
[2018-10-09] MEDS: ROSUVASTATIN CALCIUM 10 MG TAB PO SCH (08:45)
[2018-10-09] MEDS: EZETIMIBE 10 MG TAB PO SCH (08:45)
--- NOTE | 2018-10-09 12:09 | HOSPPROG ---
Hospitalist Progress Note Assessment/Plan: # acute hypoxic respiratory failure - improving slowly - no clear reason why she should be so hypoxic - will try to wean from oxygen and follow - CT ok, no PE, bubble echo last year without shunt - CXR personally reviewed today, no e/o of edema or infiltrate - Lung exam is clear - pulmonology is following # neurologic symptoms, history of TIA - Neurology has signed off -Expressive Aphasia and Right Facial droop have resolved - cont asa/plavix/low dose crestor/bp mgmt - ppm without clear a-fib (had runs of a-tach) # complete heart block status post pacemaker, cardiology has signed off # mild LISSETT - resolved # hyperlipidemia # DM2, uncontrolled, last A1C 10% - She is followed by Endocrinology (Dr. Rodríguez) in the outpatient setting. - Per Endocrinology, her Lispro is to be given 2 hrs after meals due to severe gastroparesis. The pt reports that her glucose are better controlled now than they were when she took the Lispro with her meals. - Glargine was increased to 40a.m/30hs on 10/07. -Glucose appears better controlled this morning. For now I will not adjust insulin further # hypothyroid - synthroid Dispo: -Weaning down O2 Subjective: weaning off O2. Denies cp or sob. Objective: Vital Signs Temp Pulse Resp BP Pulse Ox 36.6 C 88 16 114/76 92 10/09/18 07:19 10/09/18 11:12 10/09/18 07:19 10/09/18 07:19 10/09/18 11:12 Laboratory Results 10/07/18 13:35 10/09/18 05:40 10/08/18 10/09/18 10/10/18 05:59 05:59 05:59 Intake Total 1000 450 445 Output Total 50 Balance 1000 400 445 - Physical Exam Constitutional: no apparent distress Eyes: PERRL, EOMI Ears, Nose, Mouth, Throat: moist mucous membranes, hearing normal Cardiovascular: regular rate and rhythym, No edema Respiratory: no respiratory distress, no rales or rhonchi, clear to auscultation Gastrointestinal: normoactive bowel sounds, soft, non-tender abdomen Skin: warm Neurologic: AAOx3 Psychiatric: interacting appropriately, not anxious, not encephalopathic Lymph, Heme, Immunologic: No petechiae ICD10 Worksheet Patient Problems: Problems Problem Status Onset Transient cerebral ischemia Acute Slurred speech Acute Stroke Acute Third degree heart block Acute
[2018-10-09] MEDS: INSULIN LISPRO 100 UNIT/ML SC SCH ×4 (12:29→21:19)
--- NOTE | 2018-10-09 15:44 | PDINTPN ---
Process Consultant Progress Note Assessment/Plan: Assessment: S/P TIA: Resolved. Hypoxemia: I suspect this is due to hypoventilation, with some shunting through atelectasis in bases, resulting in relatively oxygen-refractory hypoxemia. Obesity likely contributes to this. We have markedly reduced her FiO2 in the last 24 hr, with no significant change in her oxygen saturations. Elevated right diaphragm: Chronic. Moves normally on fluoroscopy. Plan: Continue to decrease FIO2, tolerate lower O2 sats, and see how she does with increased mobilization. I suspect she will do well at 0-2 L/minute at rest. Encouraged weight loss. 10/09/18 15:42 Subjective: Breathing feels okay, denies dyspnea at rest. No cough. Objective: Vital Signs Temp Pulse Resp BP Pulse Ox 36.4 C 90 20 118/74 93 10/09/18 12:30 10/09/18 14:06 10/09/18 13:46 10/09/18 12:30 10/09/18 14:06 Laboratory Results 10/07/18 13:35 10/09/18 05:40 10/08/18 10/09/18 10/10/18 05:59 05:59 05:59 Intake Total 1000 450 445 Output Total 50 Balance 1000 400 445 Physical Exam - Physical Exam General Appearance: alert, no apparent distress EENT: normal ENT inspection Neck: normal inspection Respiratory: lungs clear, normal breath sounds Cardiac/Chest: regular rate, rhythm, No edema Abdomen: normal bowel sounds, non-tender Skin: normal color, warm/dry Extremities: normal inspection Neuro/Psych: alert, normal mood/affect, oriented x 3 ICD10 Worksheet Patient Problems: Problems Problem Status Onset Transient cerebral ischemia Acute Slurred speech Acute Stroke Acute Third degree heart block Acute
[2018-10-09] MEDS: CLOPIDOGREL BISULFATE 75 MG TAB PO SCH (19:43)
[2018-10-09] MEDS: PANTOPRAZOLE SODIUM 40 MG TAB PO SCH (21:15)
[2018-10-09] MEDS: CHOLECALCIFEROL VIT D3 2,000 UNITS TAB/CAP PO SCH (21:15)
[2018-10-10] MEDS: ACETAMINOPHEN 325 MG TAB PO PRN (02:47)
[2018-10-10] MEDS: LEVOTHYROXINE 50 MCG TAB PO SCH (06:39)
--- NOTE | 2018-10-10 07:04 | CPEKG ---
Test Reason : OPEN Blood Pressure : / mmHG Vent. Rate : 099 BPM Atrial Rate : 099 BPM P-R Int : 182 ms QRS Dur : 129 ms QT Int : 409 ms P-R-T Axes : 055 076 -69 degrees QTc Int : 525 ms Sinus rhythm IVCD, consider atypical LBBB Confirmed by Derrell Polk ([id number]) on 10/10/2018 7:04:21 AM Referred By: Connor Swift Confirmed By:Derrell Polk
[2018-10-10] MEDS ORDERED: INSULIN GLARGINE 100 UNITS/ML UNIT SC SCH ×2 (08:38→12:26)
[2018-10-10] MEDS: ROSUVASTATIN CALCIUM 10 MG TAB PO SCH (09:58)
[2018-10-10] MEDS: EZETIMIBE 10 MG TAB PO SCH (09:58)
[2018-10-10] MEDS: ASPIRIN EC 81 MG TAB PO SCH (09:58)
[2018-10-10] MEDS: FENOFIBRATE 48 MG TAB PO SCH (09:59)
[2018-10-10] MEDS: PREGABALIN 50 MG CAP PO SCH ×2 (09:59→20:59)
[2018-10-10] MEDS: DULoxetine 60 MG CAP PO SCH (10:00)
[2018-10-10] MEDS: INSULIN LISPRO 100 UNIT/ML SC SCH ×6 (10:42→21:00)
--- NOTE | 2018-10-10 12:06 | ASMTCMCOM ---
CM Note CM Note Notes: Spoke with pt in the room. Pt medically stable to dc today, but will require eval from RN at [facility] for readmission to her home. Message left for Precious Earl RN and referral updated in [employer] to initiate [facility] eval Thursday. Precious's fax is ([phone]) if [employer] not functional. Pt will also need HHC RN as she will have new home O2. [facility] has accepted. Pt insists she can walk downstairs for OP rehab with the [facility] which is in her building. Though PT/OT are recommending HHC. Still, [facility] RN ordered due to new O2. Pt has requested records be sent to [facility] Ruma Rodríguez and PRITI of [facility] both of whom have access to [facility] records, and PCP LINDA Bertrand of [facility]. Pt also requested PT/OT orders be sent to [facility] in [place] by ( ) Message left requesting their fax number. HIPPA release for Yannick signed by pt. and placed in chart. Pt will need transport home through [facility]. [facility]. CM to follow. D/C plan: Home to [facility] with [facility] RN and OP PT/OT with [facility]. Date Signed: 10/10/2018 12:05 PM Electronically Signed By:Lesia Guzman
--- NOTE | 2018-10-10 12:20 | PDINTPN ---
Transformer Tester Progress Note Assessment/Plan: Assessment: S/P TIA: Resolved. Hypoxemia: I suspect this is due to hypoventilation, with some shunting through atelectasis in bases, resulting in relatively oxygen-refractory hypoxemia. Obesity and altitude likely contribute to this. Some dysfunction of the right diaphragm without complete paralysis could contribute. We have markedly reduced her FiO2 in the last 24 hr, with no significant change in her oxygen saturations. She is now on room air, with oxygen saturations of 89%. Elevated right diaphragm: Chronic. Moves normally on fluoroscopy. Plan: Continue to decrease FIO2, tolerate lower O2 sats, and see how she does with increased mobilization. I suspect she will do well at 0-2 L/minute at rest. Encouraged weight loss. Okay [facility], discharge in the next day or so 10/10/18 12:19 Subjective: Feels better. Denies dyspnea. Objective: Vital Signs Temp Pulse Resp BP Pulse Ox 36.4 C 95 18 111/64 91 L 10/10/18 11:39 10/10/18 11:39 10/10/18 11:39 10/10/18 11:39 10/10/18 11:39 Laboratory Results 10/07/18 13:35 10/09/18 05:40 10/09/18 10/10/18 10/11/18 05:59 05:59 05:59 Intake Total 450 1015 230 Output Total 50 Balance 400 1015 230 Physical Exam - Physical Exam General Appearance: alert, no apparent distress EENT: normal ENT inspection Neck: normal inspection Respiratory: lungs clear, normal breath sounds Cardiac/Chest: regular rate, rhythm, No edema Abdomen: normal bowel sounds, non-tender, soft Skin: normal color, warm/dry Extremities: normal inspection Neuro/Psych: alert, normal mood/affect, oriented x 3 ICD10 Worksheet Patient Problems: Problems Problem Status Onset Transient cerebral ischemia Acute Slurred speech Acute Stroke Acute Third degree heart block Acute
--- NOTE | 2018-10-10 12:30 | HOSPPROG ---
Hospitalist Progress Note Assessment/Plan: # acute hypoxic respiratory failure - improving slowly - no clear reason why she was so hypoxic - she has weaned down to 2 L - CT ok, no PE, bubble echo last year without shunt - CXR personally reviewed, no e/o of edema or infiltrate - Lung exam is clear - pulmonology is following # neurologic symptoms, history of TIA - Neurology has signed off -Expressive Aphasia and Right Facial droop have resolved - cont asa/plavix/low dose crestor/bp mgmt - ppm without clear a-fib (had runs of a-tach) # complete heart block status post pacemaker, cardiology has signed off # mild LISSETT - resolved # hyperlipidemia # DM2, uncontrolled, last A1C 10% - She is followed by Endocrinology (Dr. Rodríguez) in the outpatient setting. - Per Endocrinology, her Lispro is to be given 2 hrs after meals due to severe gastroparesis. The pt reports that her glucose are better controlled now than they were when she took the Lispro with her meals. - Glargine was increased to 40a.m/30hs on 10/07. -She is requesting Lispro be increased to 20 units TID which she says is her home regimen. Will increase and monitor # hypothyroid - synthroid Dispo: -Weaning down O2. She may need supplemental O2 on discharge, but her sat on RA today are 91%. -She is to return back to [facility], but their assessment cannot be done until tomorrow. Will transfer to med surg floor. -will need f/u with Dr. Coleman Subjective: denies SOB. no n/v. Objective: Vital Signs Temp Pulse Resp BP Pulse Ox 36.4 C 95 18 111/64 91 L 10/10/18 11:39 10/10/18 11:39 10/10/18 11:39 10/10/18 11:39 10/10/18 11:39 Laboratory Results 10/07/18 13:35 10/09/18 05:40 10/09/18 10/10/18 10/11/18 05:59 05:59 05:59 Intake Total 450 1015 230 Output Total 50 Balance 400 1015 230 - Physical Exam Constitutional: no apparent distress Eyes: PERRL Ears, Nose, Mouth, Throat: moist mucous membranes, hearing normal Cardiovascular: regular rate and rhythym Respiratory: no respiratory distress, no rales or rhonchi, clear to auscultation Gastrointestinal: normoactive bowel sounds, soft, non-tender abdomen Skin: warm Neurologic: AAOx3 Psychiatric: interacting appropriately, not anxious, not encephalopathic Lymph, Heme, Immunologic: No petechiae ICD10 Worksheet Patient Problems: Problems Problem Status Onset Transient cerebral ischemia Acute Slurred speech Acute Stroke Acute Third degree heart block Acute
--- NOTE | 2018-10-10 13:59 | ASMTCMCOM ---
CM Note CM Note Notes: ADDENDUM: Fax number for [facility] is [phone]. Pt specifically requested we fax PT/OT orders to them as she is refusing [facility] PT/OT and they are in her building. Date Signed: 10/10/2018 01:58 PM Electronically Signed By:Lesia Guzman
[2018-10-10] MEDS: CLOPIDOGREL BISULFATE 75 MG TAB PO SCH (17:56)
[2018-10-10] MEDS: CHOLECALCIFEROL VIT D3 2,000 UNITS TAB/CAP PO SCH (20:59)
[2018-10-10] MEDS: PANTOPRAZOLE SODIUM 40 MG TAB PO SCH (20:59)
[2018-10-10] MEDS: INSULIN GLARGINE 100 UNITS/ML UNIT SC SCH (22:30)
[2018-10-11] MEDS: LEVOTHYROXINE 50 MCG TAB PO SCH (05:00)
[2018-10-11] MEDS: ROSUVASTATIN CALCIUM 10 MG TAB PO SCH (08:10)
[2018-10-11] MEDS: PREGABALIN 50 MG CAP PO SCH (08:10)
[2018-10-11] MEDS: DULoxetine 60 MG CAP PO SCH (08:12)
[2018-10-11] MEDS: ASPIRIN EC 81 MG TAB PO SCH (08:12)
[2018-10-11] MEDS: EZETIMIBE 10 MG TAB PO SCH (08:12)
[2018-10-11] MEDS: FENOFIBRATE 48 MG TAB PO SCH (09:33)
--- NOTE | 2018-10-11 10:34 | PDIAF ---
- Diagnosis Diagnosis: TIA, acute respiratory failure Code Status: Full Code - Medication Management Discharge Medications: electronically signed and located in the Home Medication List. - Orders Services needed: Home Care, Registered Nurse, Physical Therapy, Occupational Therapy Home Care Face to Face: I certify that this patient was under my care and that I had the required [id number] encounter meeting the encounter requirements on the discharge day. My findings support the fact that the patient is homebound as defined in Home Care Face to Face Continued: CMS Chapter 7 Medicare Benefits Manual 30.1.1 , The condition of the patient is such that there exists a normal inability to leave home and consequently, leaving home would require a considerable and taxing effort. Isolation Type: None Diet Recommendation: ADA 2000 consistent carb Additional Instructions: Recommend outpatient sleep study - rule out RAKESH Outpatient PT/OT at [facility] for patient to self manage her own Glucometer and Insulin - Follow Up Care Current Providers and Referrals: Gray PADILLA [Primary Care Provider] - As per Instructions Dru Chaudhari MD [Medical Doctor] - (1-6 weeks post discharge) Ruma Rodríguez MD [Medical Doctor] - (needs better diabetes control, HgA1c 10.6)
[2018-10-11 11:25] VITALS: BP 120/74
--- NOTE | 2018-10-11 12:09 | ASMTCMCOM ---
CM Note CM Note Notes: Patient medically cleared for discharge back to [facility] where she resides. She will have [facility] and they will see her for care. No oxygen ordered as she will need outpatient sleep study for insurance to cover any needs. Orders hard faxed to Precious Earl LPN at [facility] who accepts return of patient. Will arrange lyft ride for her when she is ready for discharge. Plan: Home with [facility]. Date Signed: 10/11/2018 12:07 PM Electronically Signed By:Mela Gustafson RN
[2018-10-11] MEDS: INSULIN LISPRO 100 UNIT/ML SC SCH (12:30)
--- NOTE | 2018-10-12 04:08 | GDS ---
[f rep st] DISCHARGE SUMMARY DISCHARGE DIAGNOSES: 1. Acute respiratory failure. 2. Transient ischemic attack. 3. Diabetes type 2, uncontrolled. 4. Metabolic encephalopathy. 5. Complete heart block, status post pacemaker. HISTORY/HOSPITAL COURSE: The patient is a 73-year-old female who presented with symptoms concerning for TIA. She was seen in consultation by Neurology. We cannot do an MRI due to her pacemaker. She may have had a TIA although Neurology feels this was most likely transient confusion due to metabolic encephalopathy from her uncontrolled diabetes and hyperglycemia causing recrudescence of her underly ing previous stroke symptoms. She had expressive aphasia and right facial droop and these resolved. She will continue on aspirin and Plavix. She has been intolerant of statins in the past but we star mai her on low-dose Crestor she has been tolerating it well. Her pacemaker was interrogated. There was no evidence of atrial fibrillation. Shortly after admission, her respiratory status worsened and she developed acute respiratory failure requiring 15 L of oxygen and transferred to ICU. CT angiogram of chest was negative for PE. Chest x -ray was most consistent with hypoventilation. She did not have any wheezing. It is suspected that she developed severe atelectasis with intrapulmonary shunting as cause of her respiratory failure. W e were able to slowly wean down her oxygen. At the time of discharge, she is 91% on room air. I thi nk she has had a degree of obesity hypoventilation syndrome. She tried a sleep study a few years ago but could not complete it and so never got CPAP arranged. I think she clearly has obstructive sleep apnea and I recommended urgent outpatient sleep study as I do think she would benefit from nocturnal CPAP. DISCHARGE MEDICATIONS: Please see computerized record for full detailed list. New medication: Kirk tor 5 mg p.o. daily additional. DISCHARGE INSTRUCTIONS: 1. Recommend outpatient sleep study to rule out obstructive sleep apnea as soon as possible. 2. PT/OT. 3. Follow up with Endocrinology for better management of diabetes and get the hemoglobin A1c improve d. 4. Follow up with Dr. Chaudhari of Neurology in 1-6 weeks post discharge. Greater than 30 minutes of time was spent arranging this discharge. Patient was seen and examined by me on the day of discharge. /[id number]/MODL
== END 2018-10-11 14:31 | disposition home health service (06) | DRG 69 ==
LOC: EDUNIT# → OBSVTOIN 14:18 → F3N 14:31 → F2N 10-06 21:30 → F3N 10-10 16:48
PROVIDERS: ADMIT Internal Medicine; ATTEND Internal Medicine
DX: G45.9 Transient cerebral ischemic attack, unspecified (principal); E11.65 Type 2 diabetes mellitus with hyperglycemia; E11.43 Type 2 diabetes mellitus with diabetic autonomic (poly)neuropathy; J96.01 Acute respiratory failure with hypoxia; G93.41 Metabolic encephalopathy; R29.810 Facial weakness; R47.01 Aphasia; E66.2 Morbid (severe) obesity with alveolar hypoventilation; N17.9 Acute kidney failure, unspecified; E03.9 Hypothyroidism, unspecified; I44.2 Atrioventricular block, complete; I10 Essential (primary) hypertension; E78.5 Hyperlipidemia, unspecified; H54.40 Blindness, one eye, unspecified eye; Z89.421 Acquired absence of other right toe(s); Z89.422 Acquired absence of other left toe(s); Z79.82 Long term (current) use of aspirin; Z79.01 Long term (current) use of anticoagulants; Z95.0 Presence of cardiac pacemaker
CPT/HCPCS: 82435-PO; 82565-PO; 82947-PO; 84132-PO; 84295-PO; 84484-ER; 84520-PO; 85014-ER; 92523-GN; 97110-GP; 97116-GP; 97161-GP; 97164-GP; 97166-GO; 97530-GO; 97535-GO; G0378; J1815; J1940; J2405; Q9967